=== PATIENT | male | born 1950 | race Caucasian/White ===

== ENCOUNTER → 2017-05-04 10:06 | Outpatient (CLI) | payer MEDICARE, SELFPAY ==
[2017-05-04 12:30] LABS: Anion Gap 6 (5-15); BUN 30 mg/dL (7-18); BUN/Creat Ratio 23.1 RATIO (10-20); Calcium,Total 8.8 mg/dL (8.5-10.1); Chloride 110 mmol/L (98-107); EST Glomerular Filtration Rate 58 mL/min (>60); Est Glom Filt Rate - Afr Amer 70 mL/min (>60); Glucose 99 mg/dL (74-106); Potassium 5.3 mmol/L (3.5-5.1); Sodium Level 139 mmol/L (136-145)
== END ==
PROVIDERS: Family Provider Family Medicine; PCP Family Medicine; Visit Provider Family Medicine
DX: N17.9 Acute kidney failure, unspecified (principal)
CPT/HCPCS: 36415; 80048

== ENCOUNTER → 2017-10-19 09:05 | Outpatient (CLI) | payer MEDICARE, SELFPAY ==
[2017-10-19 10:38] LABS: ALB/GLOB Ratio 1.3 RATIO (0.9-2.4); AST(SGOT) 19 U/L (15-37); Alanine Aminotransfer ALT/SGPT 31 U/L (16-61); Albumin, Serum 3.9 g/dL (3.2-5.0); Alkaline Phosphatase 62 U/L (45-117); Anion Gap 8 (5-15); BUN 30 mg/dL (7-18); BUN/Creat Ratio 22.2 RATIO (10-20); Calcium,Total 8.7 mg/dL (8.5-10.1); Chloride 108 mmol/L (98-107); Creatinine, Serum 1.35 mg/dL (0.70-1.30); EST Glomerular Filtration Rate 56 mL/min (>60); Est Glom Filt Rate - Afr Amer 67 mL/min (>60); Glucose 103 mg/dL (74-106); PSA,Total- Diagnostic 1.69 ng/mL (0.0-4.0); Potassium 4.1 mmol/L (3.5-5.1); Protein, Total 6.9 g/dL (6.4-8.2); Sodium Level 141 mmol/L (136-145)
== END ==
PROVIDERS: Family Provider Family Medicine; PCP Family Medicine; Visit Provider Family Medicine
DX: N40.0 Benign prostatic hyperplasia without lower urinary tract symptoms (principal); E78.5 Hyperlipidemia, unspecified
CPT/HCPCS: 36415; 80053; 84153

== ENCOUNTER → 2018-04-20 08:20 | Outpatient (CLI) | payer MEDICARE, SELFPAY ==
[2018-04-20 10:21] LABS: Anion Gap 10 (5-15); BUN 35 mg/dL (7-18); BUN/Creat Ratio 25.9 RATIO (10-20); Calcium,Total 8.6 mg/dL (8.5-10.1); Chloride 108 mmol/L (98-107); Creatinine, Serum 1.35 mg/dL (0.70-1.30); EST Glomerular Filtration Rate 56 mL/min (>60); Est Glom Filt Rate - Afr Amer 67 mL/min (>60); Glucose 114 mg/dL (74-106); Potassium 4.6 mmol/L (3.5-5.1); Sodium Level 142 mmol/L (136-145)
== END ==
PROVIDERS: Family Provider Family Medicine; PCP Family Medicine; Referring Provider Family Medicine; Visit Provider Family Medicine
DX: I10 Essential (primary) hypertension (principal)
CPT/HCPCS: 36415; 80048

== ENCOUNTER → 2018-11-29 09:06 | Outpatient (CLI) | payer MEDICARE, SELFPAY ==
--- NOTE | 2018-11-29 09:11 | RAD_ITS ---
STUDY: X-RAY - LUMBAR SPINE REASON FOR EXAM: Male, 68 years old. Bilateral leg weakness TECHNIQUE: 5 view(s) of the lumbar spine were obtained. COMPARISON: None FINDINGS: Normal alignment. Diffuse spondylosis. Degenerative disc disease at the L3-4 and L4-5 levels. Diffuse facet disease. No compression deformity. Vascular calcifications. No severe foraminal stenoses are detected. RAD/L/S Spine Min 4 Views IMPRESSION: Multilevel degenerative disease as described. Electronically Signed: Justice Rodríguez MD at 17:15 EDT Tel , Service support ,
[2018-11-29 09:58] LABS: Hematocrit 41.5 % (40-54); Hemoglobin 13.1 g/dL (13.0-16.5); Mean Corp Hgb Conc 31.6 g/dL (32-36); Mean Corpuscular Hgb 27.8 pg (27.0-32.0); Mean Corpuscular Volume 87.9 fL (80-94); Mean Platelet Vol. 10.1 fl (6.2-12.0); Platelet Count 200 K/mm3 (150-450); RBC Distribution Width CV 13.6 % (11.6-14.6); RBC Distribution Width SD 43.9 fl (35.1-43.9); Red Blood Count 4.72 M/mm3 (4.6-6.2); White Blood Count 6.8 K/mm3 (4.4-11.0)
[2018-11-29 10:31] LABS: Vitamin D,25 Hydroxy 48.3 ng/mL (29.95-100.01)
[2018-11-29 10:38] LABS: BNP,B-Type NATRIURETIC PEPTIDE 20.7 pg/mL (0-100)
[2018-11-29 10:43] LABS: ALB/GLOB Ratio 1.1 RATIO (0.9-2.4); AST(SGOT) 18 U/L (15-37); Alanine Aminotransfer ALT/SGPT 31 U/L (16-61); Albumin, Serum 3.9 g/dL (3.2-5.0); Alkaline Phosphatase 76 U/L (45-117); Anion Gap 5 (5-15); BUN 40 mg/dL (7-18); BUN/Creat Ratio 26.3 RATIO (10-20); Calcium,Total 8.9 mg/dL (8.5-10.1); Chloride 110 mmol/L (98-107); Creatinine, Serum 1.52 mg/dL (0.70-1.30); EST Glomerular Filtration Rate 48 mL/min (>60); Est Glom Filt Rate - Afr Amer 59 mL/min (>60); Globulin 3.7 g/dL (2.2-4.2); Glucose 78 mg/dL (74-106); Potassium 4.2 mmol/L (3.5-5.1); Protein, Total 7.6 g/dL (6.4-8.2); Sodium Level 141 mmol/L (136-145); Thyroid Stim Hormone (TSH) 3.39 uIU/mL (0.358-3.74)
== END ==
PROVIDERS: Family Provider Family Medicine; PCP Family Medicine; Referring Provider Family Medicine; Visit Provider Family Medicine
DX: R29.898 Other symptoms and signs involving the musculoskeletal system (principal); R06.00 Dyspnea, unspecified; E55.9 Vitamin D deficiency, unspecified
CPT/HCPCS: 36415; 72110; 80053; 82306; 83880; 84443; 85027

== ENCOUNTER → 2018-12-10 12:46 | Outpatient (CLI) | payer MEDICARE, SELFPAY ==
--- NOTE | 2018-12-10 12:48 | ECHOD_ITS ---
Reason For Study: DYSPNEA Procedure This was a 2D Doppler, Color Flow transthoracic echocardiogram. Exam performed in department. Left Ventricle Normal size and thickness. The estimated ejection fraction is 65 %. Stage 1 diastolic dysfunction. Septal motion consistent with IVCD. No regional wall motion abnormalities noted. Right Ventricle Normal size and thickness. Normal systolic function. Atria The left atrium is mildly enlarged. Normal right atrium. Normal atrial septum. Mitral Valve The mitral valve is structurally normal. No prolapse or stenosis seen. Trivial mitral valve insufficiency. Tricuspid Valve Normal tricuspid valve. Trivial tricuspid valve insufficiency. Right ventricular systolic pressure estimated to be 31 mmHg. Aortic Valve Normal aortic valve. Trisinus/trileaflet aortic valve. Pulmonic Valve Normal pulmonic valve. Great Vessels Calcified aortic root. Normal arch. Normal inferior vena cava. Inferior vena cava collapse with sniff. Pericardium/Pleural No pericardial effusion. MMode/2D Measurements & Calculations LVIDd: 4.9 cm IVSd: 0.95 cm Ao root diam: 3.5 cm LVIDs: 3.5 cm LVPWd: 1.1 cm RVDd: 3.3 cm FS: 29.4 % LAV(MOD-bp): 67.1 ml LA A4 area: 21.8 cm2 LA dimension(2D): 4.0 cm LAV(MOD-bp) Indexed: 29.0 ml/m2 LAV(MOD-sp2): 64.3 ml LAV(MOD-sp4): 68.7 ml RA A4 area: 17.5 cm2 Time Measurements MV dec time: 0.23 sec Doppler Measurements & Calculations MV E max pollo: 75.2 cm/sec Lat Peak E' Pollo: 7.8 cm/sec Med Peak E' Pollo: 7.1 cm/sec MV A max pollo: 80.7 cm/sec E/E' lat: 9.6 E/E' med: 10.5 MV E/A: 0.93 Ao V2 max: 122.0 cm/sec LV V1 max: 115.1 cm/sec PA V2 max: 77.5 cm/sec Ao max P.0 mmHg LV V1 max P.3 mmHg TR max pollo: 257.0 cm/sec TR max P.4 mmHg Interpretation Summary The estimated ejection fraction is 65 %. Stage 1 diastolic dysfunction. The left atrium is mildly enlarged. Trivial mitral valve insufficiency. Trivial tricuspid valve insufficiency. Right ventricular systolic pressure estimated to be 31 mmHg. There is no comparison study available. Ordering Physician: Luigi Kirk Referring Physician: Luigi Kirk Performed By: Tarah Muniz RDCS, RVT
== END ==
PROVIDERS: Family Provider Family Medicine; PCP Family Medicine; Referring Provider Family Medicine; Visit Provider Family Medicine
DX: R06.00 Dyspnea, unspecified (principal)
CPT/HCPCS: 93306

== ENCOUNTER → 2019-01-02 06:24 | Outpatient (CLI) | payer MEDICARE, SELFPAY ==
--- NOTE | 2019-01-02 08:59 | STRESSREP_ITS ---
Stress Test Report Exercise myocardial perfusion stress test. 68-year-old man with a history of chest pain. Stress protocol: Resting EKG demonstrates normal sinus rhythm with rate of 60 bpm normal intervals are noted resting blood pressures 130/88 mmHg. The patient exercised according to regular Km protocol for total duration of 5 minutes and 15 secon ds. At rest there were no ST or T wave changes noted suggest ischemia. The maximum heart rate was 126 bpm which was 84% of maximum predicted heart rate the maximum workload was 7 metabolic equivalents. At rest there were no ST or T wave changes noted suggest ischemia peak exercise upsloping ST changes were noted with no meet the criteria for ischemia. No clinical angina was noted. Patient got short of breath. The resting blood pressure was 130/80 mmHg with a peak blood pressure 160/80 mmHg. Rate pressure product was 11,800. Myocardial perfusion protocol. 15.0 mCi of technetium 99m sestamibi was injected at rest. Patient exercised according to regular Km protocol for 5-1/4 minutes at peak exercise 45.0 mCi of technetium 99m sestamibi was injected stress images were obtained stress and rest images were reconstructed and compared in the short axis vertical and horizontal long axis. Gated images were also obtained per Perfusion SPECT analysis: Review of the stress images demonstrate normal uptake of tracer noted in all areas of the myocardium the resting images similar demonstrate normal uptake of tracer noted in all areas of myocardium. No areas of reversibility are noted suggest ischemia no previous infarct is noted. Gated SPECT analysis: The gated ejection fraction is noted to be 78%. Conclusion: Normal exercise myocardial perfusion stress test at a moderate workload. Preserved ejection fraction.
== END ==
PROVIDERS: Family Provider Family Medicine; PCP Family Medicine; Referring Provider Family Medicine; Visit Provider Family Medicine
DX: R06.00 Dyspnea, unspecified (principal)
CPT/HCPCS: 78452; 93017; A9500; A4216

== ENCOUNTER → 2019-03-07 09:14 | Outpatient (CLI) | payer MEDICARE, SELFPAY ==
--- NOTE | 2019-03-07 09:17 | RAD_ITS ---
STUDY: X-RAY CHEST REASON FOR EXAM: Male, 69 years old. Benign hypertension -- sob x 4 months TECHNIQUE: Frontal and lateral views of the chest were performed COMPARISON: 10 February 2016 FINDINGS: Inspiratory volumes are low. Lungs are clear. There is no demonstrated pleural abnormality. Normal size heart. Normal mediastinum and hien. Normal visualized pulmonary arteries. Normal visualized aortic arch and descending thoracic aorta. Normal visualized thoracic spine. Normal visualized ribs, clavicles, and shoulders. There is no demonstrated abnormality of the visualized soft tissue structures of the upper abdomen. RAD/Chest PA and Lateral IMPRESSION: Normal x-ray examination of the chest. Electronically Signed: Vito Lee, at 18:13 EST Tel , Service support ,
== END ==
PROVIDERS: Family Provider Family Medicine; PCP Family Medicine; Referring Provider Family Medicine; Visit Provider Family Medicine
DX: I10 Essential (primary) hypertension (principal); R10.13 Epigastric pain
CPT/HCPCS: 71046

== ENCOUNTER → 2019-03-13 08:58 | Outpatient (CLI) | payer MEDICARE, SELFPAY ==
--- NOTE | 2019-03-13 09:11 | RAD_ITS ---
STUDY: X-RAY - ESOPHAGUS (BARIUM SWALLOW) WITH FLUOROSCOPY REASON FOR EXAM: Male, 69 years old. Difficulty swallowing pills and dry foods; dry throat; problems for a couple years, but worsening recently TECHNIQUE: 23 view(s) of the esophagus were obtained following swallowing of barium. FLUOROSCOPY TIME (if supplied): (0:40) minutes/seconds COMPARISON: None. FINDINGS: There is no demonstrated esophageal foreign body. There is decreased peristaltic activity of the esophagus. There is narrowing of the distal esophagus at the gastroesophageal junction. This may represent early achalasia. Follow-up is recommended. The patient ingested a 12 mm tablet of barium without any difficulty. Normal visualized aortic arch and descending thoracic aorta. Normal visualized pulmonary parenchyma. Normal visualized osseous structures of the thorax. RAD/Esophagus Only IMPRESSION: Findings suggestive of early achalasia of the esophagus. Clinical correlation is recommended. Electronically Signed: Prashanth Kimbrough, at 15:01 EST , Service support ,
== END ==
PROVIDERS: Family Provider Family Medicine; PCP Family Medicine; Referring Provider Family Medicine; Visit Provider Family Medicine
DX: R10.13 Epigastric pain (principal)
CPT/HCPCS: 74220

== ENCOUNTER → 2019-09-06 09:05 | Outpatient (CLI) | payer MEDICARE, SELFPAY ==
[2019-09-06 10:26] LABS: AST(SGOT) 22 U/L (15-37); Alanine Aminotransfer ALT/SGPT 33 U/L (16-61); Albumin, Serum 3.6 g/dL (3.2-5.0); Alkaline Phosphatase 67 U/L (45-117); Anion Gap 4 (5-15); BUN 39 mg/dL (7-18); BUN/Creat Ratio 25.5 RATIO (10-20); Calcium,Total 8.8 mg/dL (8.5-10.1); Chloride 107 mmol/L (98-107); Cholesterol 149 mg/dL (200); Creatinine, Serum 1.53 mg/dL (0.70-1.30); EST Glomerular Filtration Rate 48 mL/min (>60); Est Glom Filt Rate - Afr Amer 58 mL/min (>60); Globulin 3.7 g/dL (2.2-4.2); Glucose 111 mg/dL (74-106); High Density Lipoprotein 35 mg/dL; PSA,Total - Annual Screen 0.87 ng/mL (0.00-4.00); Potassium 4.8 mmol/L (3.5-5.1); Protein, Total 7.3 g/dL (6.4-8.2); Sodium Level 141 mmol/L (136-145); Triglycerides 132 mg/dL; Very Low Density Lipoprotein 26 mg/dL (5-40)
== END ==
PROVIDERS: PCP Family Medicine; Referring Provider Family Medicine; Visit Provider Family Medicine
DX: E78.5 Hyperlipidemia, unspecified (principal); N40.0 Benign prostatic hyperplasia without lower urinary tract symptoms; Z12.5 Encounter for screening for malignant neoplasm of prostate
CPT/HCPCS: 36415; 80053; 80061; 84153; G0103

== ENCOUNTER → 2019-12-24 09:08 | Outpatient (CLI) | payer MEDICARE, SELFPAY ==
--- NOTE | 2019-12-24 15:19 | PFTCOMP_ITS ---
COMPLETE PULMONARY FUNCTION TEST INTERPRETATION Brief HPI: Patient is a 69 year old male, currently under the care of Dr. Kirk, who presents to [facility] for complete pulmonary function tests secondary to diagnosis of dyspnea. Respiratory therapist reports good effort and reproducible results. Interpretation: Forced expiration spirometry shows no large airways obstructive ventilatory defect with an FEV1 of 80% predicted. There is no significant bronchodilator response by strict ATS criteria. Spirograms are of good quality and plateau slowly, indicating slowly emptying areas of the lungs. The respiratory flow volume loop shows decreased expiratory flow rates at high lung volumes consistent with small airways obstruction. Lung volumes by body plethysmography show a normal total lung capacity at 5.88 L, 87% predicted. All other lung volumes are within normal limits. Diffusion capacity by carbon monoxide is normal at 83% predicted. The airway resistance is normal. No previous pulmonary function tests were available for review. Impression: Grossly normal pulmonary function test, but barely misses criteria for asthma.
== END ==
PROVIDERS: PCP Family Medicine; Referring Provider Family Medicine; Visit Provider Family Medicine
DX: R06.00 Dyspnea, unspecified (principal)
CPT/HCPCS: 94060; 94726; 94729

== ENCOUNTER → 2020-06-01 09:08 | Outpatient (CLI) | payer MEDICARE, SELFPAY ==
[2020-06-01 10:10] LABS: Anion Gap 4 (5-15); BUN 23 mg/dL (7-18); BUN/Creat Ratio 15.1 RATIO (10-20); Calcium,Total 8.8 mg/dL (8.5-10.1); Chloride 105 mmol/L (98-107); Cholesterol 142 mg/dL (200); Creatinine, Serum 1.52 mg/dL (0.70-1.30); EST Glomerular Filtration Rate 48 mL/min (>60); Est Glom Filt Rate - Afr Amer 58 mL/min (>60); Glucose 104 mg/dL (74-106); High Density Lipoprotein 40 mg/dL; Potassium 4.4 mmol/L (3.5-5.1); Sodium Level 139 mmol/L (136-145); Triglycerides 100 mg/dL; Very Low Density Lipoprotein 20 mg/dL (5-40)
== END ==
PROVIDERS: PCP Family Medicine; Visit Provider Family Medicine
DX: E78.5 Hyperlipidemia, unspecified (principal); N18.30 Chronic kidney disease, stage 3 unspecified
CPT/HCPCS: 36415; 80048; 80061

== ENCOUNTER → 2020-10-05 15:25 | Outpatient (CLI) | payer MEDICARE, SELFPAY ==
--- NOTE | 2020-10-05 15:30 | RAD_ITS ---
STUDY: X-RAY - LUMBOSACRAL SPINE REASON FOR EXAM: Male, 70 years old. Low back pain. TECHNIQUE: 7 view(s) of the lumbosacral spine including lateral flexion and extension views were obtained. COMPARISON: 11/29/2018. FINDINGS: Osteopenia. Normal lumbar lordosis. There is no substantial scoliosis. There is normal alignment of the vertebrae. Limited flexion and extension with no abnormal motion. Normal vertebral bodies and endplates. Diffuse moderate to marked facet sclerosis. Diffuse intervertebral disc space narrowing with osteophyte formation most marked at L3-4. Normal bilateral sacral ala, sacroiliac joints, and visualized sacrum. Vascular calcification. Phleboliths. RAD/L/S Spine w Bend Min 6 Vw IMPRESSION: Limited flexion and extension with no abnormal motion. Stable marked lumbosacral spondylosis as described, most prevalent at L3-4. No acute abnormality. Electronically Signed: Gilbert Oropeza MD at 9:44 EDT , Service support ,
== END ==
PROVIDERS: PCP Family Medicine; Referring Provider Family Medicine; Visit Provider Family Medicine
DX: M54.5 Low back pain (principal)
CPT/HCPCS: 72114

== ENCOUNTER → 2020-12-17 10:00 | Outpatient (CLI) | payer MEDICARE, SELFPAY ==
[2020-12-17 12:36] LABS: Vitamin D,25 Hydroxy 44.3 ng/mL
[2020-12-17 12:40] LABS: Anion Gap 5 (5-15); BUN 34 mg/dL (7-18); Calcium,Total 9.2 mg/dL (8.5-10.1); Chloride 106 mmol/L (98-107); EST Glomerular Filtration Rate 42 mL/min (>60); Est Glom Filt Rate - Afr Amer 51 mL/min (>60); Glucose 90 mg/dL (74-106); PSA,Total - Annual Screen 1.32 ng/mL (0.00-4.00); Potassium 4.3 mmol/L (3.5-5.1); Sodium Level 139 mmol/L (136-145)
== END ==
PROVIDERS: PCP Family Medicine; Referring Provider Family Medicine; Visit Provider Family Medicine
DX: N18.30 Chronic kidney disease, stage 3 unspecified (principal); N40.0 Benign prostatic hyperplasia without lower urinary tract symptoms; E55.9 Vitamin D deficiency, unspecified; Z12.5 Encounter for screening for malignant neoplasm of prostate
CPT/HCPCS: 36415; 80048; 82306; 84153; G0103

== ENCOUNTER → 2021-01-15 08:10 | Outpatient (CLI) | payer MEDICARE, SELFPAY ==
--- NOTE | 2021-01-16 06:57 | PFT ---
INTRODUCTION: The patient is a 70-year-old male that presents for pulmonary function studies secondary to a diagnosis of shortness of breath. Respiratory therapy reported good patient effort. Bronchodilators were used during testing. INTERPRETATION: Forced expiration spirometry demonstrates no evidence of a large airways obstructive ventilatory defect. There was a significant response to aerosolized bronchodilators. Spirograms are of good quality and plateau normally. Body plethysmography was performed and revealed lung volumes to be within normal limits. Diffusing capacity by single breath CO was also within normal limits. When compared to pulmonary function studies completed in November 2019, there has been a 27% reduction in FEV1. IMPRESSION: Stigmata of small airways disease with significant bronchodilator response noted.
== END ==
PROVIDERS: PCP Family Medicine; Referring Provider Internal Medicine Critical Care Medicine; Visit Provider Internal Medicine Critical Care Medicine
DX: R06.02 Shortness of breath (principal)
CPT/HCPCS: 94060; 94726; 94729

== ENCOUNTER → 2021-01-20 09:18 | Outpatient (CLI) | payer MEDICARE, SELFPAY ==
[2021-01-20 10:52] LABS: Anion Gap 10 (5-15); BUN 25 mg/dL (7-18); BUN/Creat Ratio 17.5 RATIO (10-20); Calcium,Total 9.1 mg/dL (8.5-10.1); Chloride 106 mmol/L (98-107); Creatinine, Serum 1.43 mg/dL (0.70-1.30); EST Glomerular Filtration Rate 52 mL/min (>60); Est Glom Filt Rate - Afr Amer 62 mL/min (>60); Glucose 127 mg/dL (74-106); Potassium 4.3 mmol/L (3.5-5.1); Sodium Level 140 mmol/L (136-145)
== END ==
PROVIDERS: PCP Family Medicine; Referring Provider Family Medicine; Visit Provider Family Medicine
DX: I10 Essential (primary) hypertension (principal)
CPT/HCPCS: 36415; 80048

== ENCOUNTER → 2021-01-22 12:58 | Outpatient (CLI) | payer MEDICARE, SELFPAY ==
[2021-01-22 14:33] VITALS: PULSE 66; PULSE 69; PULSE 74; PULSE 83; PULSE 87; PULSE 89; O2SAT 95; O2SAT 97; O2SAT 98
--- NOTE | 2021-01-23 05:37 | PCM.PSN.6M ---
PSN 6 Minute Walk Test 6 Minute Walk Test 6 Minute Walk Test: 6 Minute Walk Test PSN:6-Minute Walk Test Start: 01/22/21 14:33 Freq: Status: Active Protocol: [id number] Document 01/22/21 14:33 [facility] (Rec: 01/22/21 14:37 [facility] [id number]) 6 Minute Walk Test Date Performed 01/22/21 Time Performed 13:00 Height 5 ft 11 in Weight: 108.273 kg Weight in Pounds 238.[address]: Iggy Goncalves Assistive device used: None Pre-test Oxygen Delivery Method Room Air Pulse Ox (%) 98 Pulse Rate (60-100 beats/min) 66 Dyspnea Rianna Scale (0-10) 0 1st minute Oxygen Delivery Method Room Air Pulse Ox (%) 95 Pulse Rate (60-100 beats/min) 74 Dyspnea Rianna Scale (0-10) 1 Number of Rests Taken 0 2nd minute Oxygen Delivery Method Room Air Pulse Ox (%) 95 Pulse Rate (60-100 beats/min) 83 Dyspnea Rianna Scale (0-10) 2 Number of Rests Taken 0 Reported Symptoms Increased Work of Breathing 3rd minute Oxygen Delivery Method Room Air Pulse Ox (%) 95 Pulse Rate (60-100 beats/min) 87 Dyspnea Rianna Scale (0-10) 3 Number of Rests Taken 0 Reported Symptoms Increased Work of Breathing 4th minute Oxygen Delivery Method Room Air Pulse Ox (%) 95 Pulse Rate (60-100 beats/min) 89 Dyspnea Rianna Scale (0-10) 3 Number of Rests Taken 0 Reported Symptoms Increased Work of Breathing 5th minute Oxygen Delivery Method Room Air Pulse Ox (%) 95 Pulse Rate (60-100 beats/min) 87 Dyspnea Rianna Scale (0-10) 3 Number of Rests Taken 0 Reported Symptoms Increased Work of Breathing 6th minute Oxygen Delivery Method Room Air Pulse Ox (%) 95 Pulse Rate (60-100 beats/min) 89 Dyspnea Rianna Scale (0-10) 3 Number of Rests Taken 0 Reported Symptoms Increased Work of Breathing Post-test Oxygen Delivery Method Room Air Pulse Ox (%) 97 Pulse Rate (60-100 beats/min) 69 Dyspnea Rianna Scale (0-10) 0 Full Laps Walked 12 Partial Lap, Number of Tiles Walked 13 Total Distance Walked (ft) 721 Interpretation Interpretation: The patient was able to ambulate only 721 feet over the course of 6 minutes on room air with no assistive devices or breaks. The patient experienced no significant desaturation or tachycardia during testing. These findings are consistent with a musculoskeletal limitation exercise tolerance. Recommendations Recommendations: No supplemental oxygen is indicated at this time. Repeat testing may be indicated if patient's mobility improves.
== END ==
PROVIDERS: PCP Family Medicine; Referring Provider Internal Medicine Critical Care Medicine; Visit Provider Internal Medicine Critical Care Medicine
DX: R06.02 Shortness of breath (principal)
CPT/HCPCS: 94618

== ENCOUNTER → 2021-06-23 | Outpatient (CLI) | payer MEDICARE, SELFPAY ==
[2021-06-23 12:32] LABS: Hemoglobin A1c 5.4 % (3.8-5.6); Vitamin D,25 Hydroxy 59.8 ng/mL
[2021-06-23 12:33] LABS: Erythrocyte Sedimentation Rate 10 mm/hr (0-20)
[2021-06-23 12:37] LABS: Absolute Neutrophil Count 4.8 X10^3/uL (2.0-7.7); Basophil# 0.04 X10^3/uL; Basophil% 0.6 % (0-1); Eosinophil# 0.17 X10^3/uL; Eosinophils% 2.5 % (0-5); Hematocrit 40.7 % (40-54); Hemoglobin 13.2 g/dL (13.0-16.5); Lymphocyte % 21.7 % (19-41); Mean Corp Hgb Conc 32.4 g/dL (32-36); Mean Corpuscular Hgb 27.8 pg (27.0-32.0); Mean Corpuscular Volume 85.9 fL (80-94); Mean Platelet Vol. 9.8 fl (6.2-12.0); Monocyte# 0.39 X10^3/uL; Monocyte% 5.6 % (0-10); NRBC Flagged by Analyzer 0 % (0-5); Neutrophil # 4.76 X10^3/uL (2.7-7.7); Neutrophil % 68.9 % (47-70); Platelet Count 269 K/mm3 (150-450); RBC Distribution Width CV 13.2 % (11.6-14.6); RBC Distribution Width SD 41.7 fl (35.1-43.9); Red Blood Count 4.74 M/mm3 (4.6-6.2); White Blood Count 6.9 K/mm3 (4.4-11.0)
[2021-06-23 12:59] LABS: Anion Gap 7 (5-15); BUN 21 mg/dL (7-18); CRP 3.66 mg/L (0.0-3.0); Chloride 108 mmol/L (98-107); Cholesterol 101 mg/dL (200); Creatinine, Serum 1.61 mg/dL (0.70-1.30); EST Glomerular Filtration Rate 45 mL/min (>60); Est Glom Filt Rate - Afr Amer 54 mL/min (>60); Glucose 120 mg/dL (74-106); High Density Lipoprotein 39 mg/dL; Potassium 4.4 mmol/L (3.5-5.1); Rheumatoid Factor < 10.0 IU/mL (<15); Sodium Level 139 mmol/L (136-145); Thyroid Stim Hormone (TSH) 3.47 uIU/mL (0.358-3.74); Triglycerides 73 mg/dL; Uric Acid 4.3 mg/dL (3.5-7.2); Very Low Density Lipoprotein 15 mg/dL (5-40)
[2021-06-24 17:30] LABS: ANTINUCLEAR ANTIBODIES DIRECT Negative (Negative)
== END | disposition home or self-care (01) ==
LOC: MFPLAB 09:38
PROVIDERS: PCP Family Medicine; Referring Provider Family Medicine; Visit Provider Family Medicine
DX: Z00.00 Encounter for general adult medical examination without abnormal findings (principal); N18.30 Chronic kidney disease, stage 3 unspecified; N40.0 Benign prostatic hyperplasia without lower urinary tract symptoms; I12.9 Hypertensive chronic kidney disease with stage 1 through stage 4 chronic kidney disease, or unspecified chronic kidney disease; R73.01 Impaired fasting glucose
CPT/HCPCS: 80048; 80061; 82306; 83036; 84153; 84443; 84550; 85025; 85652; 86038; 86140; 86431

== ENCOUNTER → 2021-09-14 | Outpatient (CLI) | payer MEDICARE, SELFPAY ==
[2021-09-14 12:15] LABS: Absolute Lymphocyte Count 1.39 X10^3/uL (0.83-4.51); Absolute Neutrophil Count 4.8 X10^3/uL (2.0-7.7); Basophil# 0.03 X10^3/uL; Basophil% 0.4 % (0-1); Eosinophil# 0.15 X10^3/uL; Eosinophils% 2.2 % (0-5); Hematocrit 40.3 % (40-54); Hemoglobin 13.2 g/dL (13.0-16.5); Lymphocyte # 1.39 X10^3/ul (0.83-4.51); Lymphocyte % 20.5 % (19-41); Mean Corp Hgb Conc 32.8 g/dL (32-36); Mean Corpuscular Hgb 28.3 pg (27.0-32.0); Mean Corpuscular Volume 86.3 fL (80-94); Mean Platelet Vol. 9.6 fl (6.2-12.0); Monocyte# 0.41 X10^3/uL; NRBC Flagged by Analyzer 0 % (0-5); Neutrophil # 4.76 X10^3/uL (2.7-7.7); Neutrophil % 70.2 % (47-70); Platelet Count 204 K/mm3 (150-450); RBC Distribution Width CV 13.9 % (11.6-14.6); RBC Distribution Width SD 43.9 fl (35.1-43.9); Red Blood Count 4.67 M/mm3 (4.6-6.2); White Blood Count 6.8 K/mm3 (4.4-11.0)
[2021-09-14 12:36] LABS: Vitamin B12 299 pg/mL (211-911); Vitamin D,25 Hydroxy 62.6 ng/mL
[2021-09-14 12:55] LABS: Anion Gap 5 (5-15); BUN 29 mg/dL (7-18); BUN/Creat Ratio 19.6 RATIO (10-20); Calcium,Total 9.1 mg/dL (8.5-10.1); Chloride 107 mmol/L (98-107); Creatinine, Serum 1.48 mg/dL (0.70-1.30); EST Glomerular Filtration Rate 49 mL/min (>60); Est Glom Filt Rate - Afr Amer 60 mL/min (>60); Glucose 99 mg/dL (74-106); Potassium 4.4 mmol/L (3.5-5.1); Sodium Level 139 mmol/L (136-145); Thyroid Stim Hormone (TSH) 3.42 uIU/mL (0.358-3.74)
== END | disposition home or self-care (01) ==
LOC: MFPLAB 10:22
PROVIDERS: PCP Family Medicine; Visit Provider Family Medicine
DX: R53.83 Other fatigue (principal); N18.30 Chronic kidney disease, stage 3 unspecified
CPT/HCPCS: 36415; 80048; 82306; 82607; 84443; 85025

== ENCOUNTER → 2021-10-06 | Outpatient (CLI) | payer MEDICARE, SELFPAY ==
--- NOTE | 2021-10-06 08:11 | MRI_ITS ---
EXAM: MR HEAD WITHOUT INTRAVENOUS CONTRAST CLINICAL INDICATION: GAIT INSTABILITY, PARKINSON''S TECHNIQUE: Multiplanar and multisequence MR images of the brain were obtained without intravenous contrast. This report was created using [employer] report generation technology. COMPARISON: None. FINDINGS: BRAIN AND EXTRA-AXIAL SPACES: Unremarkable. No intra- or extra-axial hemorrhage. No evidence of acute infarct. No intracranial mass or mass effect. There is preservation of the guerra/white matter interface. Posterior fossa structures are unremarkable. Ventricles are appropriate for age. No hydrocephalus. Basal cisterns are patent. SELLA: Unremarkable. Normal sella turcica, pituitary gland, infundibular stalk, optic chiasm and hypothalamus. AUDITORY SYSTEM: Unremarkable. The internal auditory canals are patent. BONES/JOINTS: Unremarkable. No discrete lytic or blastic abnormalities. SINUSES: Unremarkable as visualized. Clear. MASTOID AIR CELLS: Unremarkable as visualized. Clear. ORBITS: Unremarkable as visualized. Both globes, extraocular muscles, optic nerves and retrobulbar fat appear unremarkable. VASCULATURE: Unremarkable as visualized. Normal flow voids in the major intracranial circulation. MRI/Brain without Contrast IMPRESSION: Negative MRI brain without intravenous contrast. Electronically Signed: Abdoul Alvarez MD at 15:08 EDT ,
== END | disposition home or self-care (01) ==
PROVIDERS: PCP Family Medicine; Visit Provider Family Medicine
DX: R26.81 Unsteadiness on feet (principal)
CPT/HCPCS: 70551

== ENCOUNTER 2021-10-16 22:19 | Inpatient (IN) | payer MEDICARE, SELFPAY ==
[2021-10-16 22:19] VITALS: PULSE 98; RESP 18; TEMP 36.8; O2SAT 93; BMI 29.9
[2021-10-16 22:24] VITALS: BP 111/62; PULSE 97; RESP 14; O2SAT 93
--- NOTE | 2021-10-16 22:45 | EKG12_ITS ---
Test Reason : WEAKNESS Blood Pressure : / mmHG Vent. Rate : 090 BPM Atrial Rate : 090 BPM P-R Int : 152 ms QRS Dur : 108 ms QT Int : 380 ms P-R-T Axes : 029 -40 063 degrees QTc Int : 464 ms Normal sinus rhythm Left axis deviation Moderate voltage criteria for LVH, may be normal variant ( R in aVL , Donavon product ) Abnormal ECG Confirmed by WILIAM STERLING, ROSITA ([id number]), medical transcription editor ALIA BECKWITH ([id number]) on 10/19/2021 12:50:13 PM Referred By: Confirmed By:ROSITA SWAIN MD
--- NOTE | 2021-10-16 22:46 | EDS_ITS ---
HPI History of Present Illness Chief Complaint: Weakness Informant: patient, spouse/S.O. and EMS Narrative Narrative: Patient presents by EMS for generalized weakness. He was unable to get out of bed tonight to go to the bathroom according to the . He has felt weak for years but usually able to get around. His doctor thinks he has Parkinson's so he started him on carbidopa/levodopa 2 or 3 weeks ago, for the first couple of days he was fine and then overnight 1 night he was sick to his stomach and vomiting so he decided himself to discontinue the medication. It was around this time according to the both of them that they suspect they both had COVID because their son had it but did not know it until after he was at their house with them and then they both became ill but did not test themselves. He had cough, myalgias, some chills. He states most of that is gone and he has a minor lingering cough still. He discontinued the medication for about 2 weeks, and then restarted it 2 days ago and states he has been vomiting again, but only 3 times or so. They are concerned it is the medication. He states he has had some minor supraumbilical abdominal pains that go away when he gets up and walks around but no other abdominal pain. Constipated recently but no diarrhea, bright red blood per rectum, melena. He has been eating and drinking a lot less in the past week. He has chronic urinary urgency followed by not urinating as much as he would expect which is no different recently. [facility] Medical History (Updated 10/17/21 @ 02:[address] Hesham Nassar MD) Depression GERD (gastroesophageal reflux disease) Hyperlipidemia Hypertension Nonalcoholic steatohepatitis Normochromic normocytic anemia MARK (obstructive sleep apnea) Parkinson disease Home Medications bupropion HCl 150 mg 24 hr tablet, extended release 150 mg PO DAILY 02/26/16 [History Last Taken 02/25/16] cholecalciferol (vitamin D3) 25 mcg (1,000 unit) capsule (Vitamin D3) 2,000 unit PO DAILY 02/26/16 [History Last Taken 02/25/16] sertraline 100 mg tablet 100 mg PO BID 02/26/16 [History Last Taken 02/25/16] losartan 100 mg tablet 100 mg PO DAILY #30 TABLETS 01/01/17 [Rx Last Taken Unknown] amlodipine 5 mg tablet 5 mg PO DAILY 01/05/21 [History Last Taken Unknown] atorvastatin 10 mg tablet 10 mg PO DAILY 01/05/21 [History Last Taken Unknown] loratadine 10 mg capsule 10 mg PO DAILY 01/05/21 [History Last Taken Unknown] naproxen 500 mg tablet 500 mg PO BID 01/05/21 [History Last Taken Unknown] propranolol 40 mg tablet 40 mg PO BID 01/05/21 [History Last Taken Unknown] tamsulosin 0.4 mg capsule 0.4 mg PO DAILY 01/05/21 [History Last Taken Unknown] albuterol sulfate 90 mcg/actuation aerosol inhaler (Ventolin HFA) 2 puff inhalation Q4H PRN shortness of breath or wheezing #18 grams 02/18/21 [Rx Last Taken Unknown] spacer #1 ea 02/18/21 [Rx Last Taken Unknown] Allergy/AdvReac Type Severity Reaction Status Date / Time Penicillins Allergy Hives Verified 10/16/21 22:24 Surgical History H/O oral surgery Social History Smoking Status: Never smoker ROS ROS ED Constitutional Constitutional ED: Reports anorexia, fatigue and weakness; Denies chills, fever(s) or lethargy Eyes Eyes: Denies blurry vision, change in vision or diplopia ENT ENT ED: Denies ear pain, rhinorrhea or sore throat Cardiovascular Cardiovascular: Denies chest pain, orthopnea, palpitations or racing heartbeat Respiratory/Chest Respiratory/Chest: Reports cough; Denies dyspnea, dyspnea on exertion or orthopnea Gastrointestinal Gastrointestinal: Reports as per HPI, abdominal pain, constipation, nausea and vomiting; Denies diarrhea or melena Genitourinary Genitourinary ED: Reports as per HPI and urinary urgency; Denies dysuria or hematuria Musculoskeletal Musculoskeletal: Denies back pain or neck pain Integumentary Denies abscess or rash Neurologic Neurologic: Denies headache(s), paresthesias or weakness Psychiatric Psychiatric: Denies anxiety or suicidal thoughts EXAM Physical Exam Const Vital Signs: 10/16/21 22:19 10/16/21 22:24 10/16/21 22:31 Temperature 98.2 F Temperature Source Oral Pulse Rate 98 97 Respiratory Rate 18 14 Respiratory Pattern Normal Blood Pressure 111/62 Blood Pressure Mean 78 Pulse Ox 93 93 Oxygen Delivery Method Room Air Room Air 10/17/21 01:07 Temperature Temperature Source Pulse Rate Respiratory Rate Respiratory Pattern Blood Pressure 116/60 Blood Pressure Mean 78 Pulse Ox 95 Oxygen Delivery Method Room Air Positive well nourished and well developed General Appearance ED: well developed and NAD HEENT Reports moist mucous membranes normocephalic and atraumatic Eyes PERRL and EOMs intact bilaterally Neck full ROM and supple Resp normal respiratory effort and clear to auscultation bilaterally Cardio regular rate, regular rhythm and no murmurs GI non-tender and non-distended Auscultation: normoactive bowel sounds Palpation: soft Back/Spine no CVA tenderness General Back: other FROM Extremity normal to inspection General Extremety ED: Negative for edema, pulses abnormal or tenderness General Extremity: Negative for edema or pulses abnormal Neuro oriented x3, CN's II-XII intact bilaterally and no sensory deficits noted Neuro Narrative: Symmetrically weak throughout all 4 extremities, 4/5, able to resist gravity. Sensorium / Orientation: awake and alert Motor Exam: general weakness Psych mental status grossly normal Skin no rashes or lesions noted and no wounds MDM MDM MDM Narrative Medical decision making narrative: Labs show mild dehydration, low potassium, as well as elevated liver enzymes. It looks like his bilirubin was up before, but it is higher now at 3.9. He has bilirubin in his urine which does not otherwise appear to be grossly infected, he has a mild nonspecific leukocytosis. It is also notable that his albumin is very low and as well his calcium has resolved. I sent her for CT since ultrasound is not available at this hour to try to characterize his elevated liver enzymes, and it shows what appears to be a stone in the common bile duct causing an obstruction. I suspect this is the cause of his vomiting rather than the medication he has been taking. I did give him fluids and potassium here in the ER, discussed with hospitalist for admission and further management. Lab Data Attestation: I reviewed the patient's lab results. Labs: Laboratory Results - last 24 hr 10/16/21 10/16/21 10/16/21 00:44 22:34 22:34 WBC 13.0 H RBC 3.90 L Hgb 10.9 L Hct 34.2 L MCV 87.7 MCH 27.9 MCHC 31.9 L RDW Std Deviation 47.7 H RDW Coeff of Richie 15.0 H Plt Count 255 MPV 9.8 Immature Gran % (Auto) 0.500 Neut % (Auto) 91.4 H Lymph % (Auto) 2.8 L King % (Auto) 4.9 Eos % (Auto) 0.1 Baso % (Auto) 0.3 Absolute Neuts (auto) 11.9 H Absolute Lymphs (auto) 0.36 L Nucleated RBC % 0 Sodium 141 Potassium 3.1 L Chloride 116 H Carbon Dioxide 17.0 L Anion Gap 8 BUN 22 H Creatinine 1.11 Estim Creat Clear Calc 63.13 Est GFR (MDRD) Af Amer 83 Est GFR (MDRD) Non-Af 69 BUN/Creatinine Ratio 19.8 Glucose 103 Calcium 6.8 L Total Bilirubin 3.90 H AST 69 H ALT 28 Alkaline Phosphatase 378 H Troponin I High Sens 8 Total Protein 5.1 L Albumin 2.0 L Globulin 3.1 Albumin/Globulin Ratio 0.6 L Urine Color Mindi Urine Clarity Clear Urine pH 5.0 Ur Specific [place] 1.015 Urine Protein 30 H Urine Glucose (UA) Normal Urine Ketones 15 H Urine Occult Blood 10 H Urine Nitrite Negative Urine Bilirubin 6 H Urine Urobilinogen 12 H Ur Leukocyte Esterase 25 H Urine RBC 0-5 SEEN Urine WBC 5-10 SEEN Ur Squamous Epith Cells 0-5 SEEN Urine Bacteria 3+ Hyaline Casts 0-5 SEEN Urine Mucus 2+ Radiography Diagnostic Testing: Clinical Impression(s) from Imaging Studies Chest X-Ray 10/16/21 23:30 IMPRESSION: No acute abnormal cardiopulmonary finding. Electronically Signed: Masoud Man MD at 0:02 EDT , Abdomen/Pelvis CT 10/17/21 00:54 IMPRESSION: 9 mm obstructing lesion in the distal common bile duct, likely calculus, with diffuse intra and extrahepatic biliary dilation and distention of the gallbladder. Electronically Signed: Masoud Man MD at 2:26 EDT , Rhythm Strip Rhythm Strip: Sinus Rhythm Rate: 90 Ectopy: None EKG Initial EKG: Attestation: I personally reviewed and interpreted this EKG as follows: Interpretation: Sinus Rhythm, No Acute Injury Pattern and LAFB Prior: No Prior Discharge Plan Triage Chief Complaint: Weakness ED Provider: Hesham Nassar Dx/Rx/DC Orders Clinical Impression: Biliary calculus with obstruction without cholecystitis, Generalized weakness, Hypokalemia due to excessive gastrointestinal loss of potassium, Vomiting, Dehydration Prescriptions: No Action amlodipine 5 mg tablet 5 mg PO DAILY loratadine 10 mg capsule 10 mg PO DAILY propranolol 40 mg tablet 40 mg PO BID naproxen 500 mg tablet 500 mg PO BID tamsulosin 0.4 mg capsule 0.4 mg PO DAILY atorvastatin 10 mg tablet 10 mg PO DAILY albuterol sulfate [Ventolin HFA] 90 mcg/actuation HFA aerosol inhaler 2 puff inhalation Q4H PRN (Reason: shortness of breath or wheezing) Qty: 18 6RF (DME) spacer See Rx Instructions .ROUTE .MEDSUPPLY Qty: 1 0RF Rx Instructions: As directed sertraline 100 MG tablet 100 mg PO BID Label Comments: mental health bupropion HCl 150 MG tablet extended release 24 hr 150 mg PO DAILY Label Comments: depression cholecalciferol (vitamin D3) [Vitamin D3] 1,000 UNIT capsule 2,000 unit PO DAILY Label Comments: supplement losartan 100 MG tablet 100 mg PO DAILY Qty: 30 0RF Primary Care Provider: Luigi Kirk Referrals: Luigi Kirk MD [Primary Care Provider] - Disposition Disposition: Acute Care Hospital [facility]
[2021-10-16 23:02] LABS: Absolute Lymphocyte Count 0.36 X10^3/uL (0.83-4.51); Absolute Neutrophil Count 11.9 X10^3/uL (2.0-7.7); Basophil# 0.04 X10^3/uL; Basophil% 0.3 % (0-1); Eosinophil# 0.01 X10^3/uL; Eosinophils% 0.1 % (0-5); Hematocrit 34.2 % (40-54); Hemoglobin 10.9 g/dL (13.0-16.5); Lymphocyte # 0.36 X10^3/ul (0.83-4.51); Lymphocyte % 2.8 % (19-41); Mean Corp Hgb Conc 31.9 g/dL (32-36); Mean Corpuscular Hgb 27.9 pg (27.0-32.0); Mean Corpuscular Volume 87.7 fL (80-94); Mean Platelet Vol. 9.8 fl (6.2-12.0); Monocyte# 0.64 X10^3/uL; Monocyte% 4.9 % (0-10); NRBC Flagged by Analyzer 0 % (0-5); Neutrophil # 11.85 X10^3/uL (2.7-7.7); Neutrophil % 91.4 % (47-70); POSITIVE DIFFERENTIAL YES; Platelet Count 255 K/mm3 (150-450); RBC Distribution Width SD 47.7 fl (35.1-43.9)
[2021-10-16 23:23] LABS: ALB/GLOB Ratio 0.6 RATIO (0.9-2.4); AST(SGOT) 69 U/L (15-37); Alanine Aminotransfer ALT/SGPT 28 U/L (16-61); Alkaline Phosphatase 378 U/L (45-117); Anion Gap 8 (5-15); BUN 22 mg/dL (7-18); BUN/Creat Ratio 19.8 RATIO (10-20); Calcium,Total 6.8 mg/dL (8.5-10.1); Chloride 116 mmol/L (98-107); Creatinine, Serum 1.11 mg/dL (0.70-1.30); EST Glomerular Filtration Rate 69 mL/min (>60); Est Glom Filt Rate - Afr Amer 83 mL/min (>60); Estimated Creatinine Clearance 63.13 ml/min; Globulin 3.1 g/dL (2.2-4.2); Glucose 103 mg/dL (74-106); Potassium 3.1 mmol/L (3.5-5.1); Protein, Total 5.1 g/dL (6.4-8.2); Sodium Level 141 mmol/L (136-145); Troponin-I HS 8 pg/mL (3.0-78.0)
[2021-10-16] MEDS: 0.9% Normal Saline 1,000 ML 250 ML IV (23:23)
--- NOTE | 2021-10-16 23:30 | RAD_ITS ---
STUDY: X-RAY CHEST REASON FOR EXAM: Male, 71 years old. Weak, cough TECHNIQUE: AP and lateral views of the chest. COMPARISON: 03/07/2019 FINDINGS: The lungs are clear and expanded. There is no demonstrated pleural abnormality. Normal size heart. Normal mediastinum and hien. Normal visualized pulmonary arteries. Aortic arch calcification. There is no demonstrated abnormality of the visualized soft tissue structures of the upper abdomen. RAD/Chest PA and Lateral IMPRESSION: No acute abnormal cardiopulmonary finding. Electronically Signed: Masoud Man MD at 0:02 EDT ,
[2021-10-16 23:32] LABS: Differential Indicated SCAN CRITERIA MET
[2021-10-17] VITALS (10 sets, daily range): BP systolic 116–142; BP diastolic 60–83; PULSE 67–103; RESP 16–18; TEMP 36–36.8; O2SAT 95–98; BMI 30.4
[2021-10-17 00:51] LABS: Color, Urine Amber (Yellow); Glucose, Dipstick Normal (Normal); Ketone-Dipstick 15 mg/dl (Negative); Leukocyte Esterase-Dipstick 25 /ul (Negative); Nitrite-Dipstick Negative (Negative); Occult Blood-Urine 10 /ul (Negative); Protein-Dipstick 30 mg/dl (Negative); Specific Gravity, Urine 1.015 (1.002-1.030); Urine Bilirubin Dipstick 6 mg/dL (Negative); Urine Clarity Clear (Clear); Urine Urobilinogen 12 mg/dl (Normal)
--- NOTE | 2021-10-17 00:54 | CT_ITS ---
STUDY: CT ABDOMEN AND PELVIS WITH CONTRAST REASON FOR EXAM: Male, 71 years old. Abdominal pain, nausea and vomiting, elevated liver enzymes RADIATION DOSAGE (If Supplied By Facility): CTDIvol = ( 13.56 ) mGy, DLP = ( 1452.35 ) mGycm TECHNIQUE: Transaxial images were obtained from the dome of the diaphragm to the symphysis pubis without oral contrast. IV 100mL Isovue-370 was administered. Sagittal and coronal images were reconstructed. Individualized dose optimization techniques were used for this CT. COMPARISON: 02/26/2016 FINDINGS: Bilateral lung base scarring. The visualized portions of the heart are within normal limits. Diffuse intrahepatic biliary dilation. There is a 9 mm lesion at the distal common bile duct with proximal biliary dilation to 2.1 cm, and distention of the gallbladder. Several small calculi layering in the gallbladder. Moderate splenomegaly is similar to 02/26/2016 Normal pancreas. Normal bilateral adrenal glands. Normal right kidney. Normal left kidney. Normal visualized stomach. Normal small intestine. Normal colon. The appendix is visualized and appears normal. Normal abdominal aorta. Normal inferior vena cava. Normal retroperitoneum. Normal urinary bladder. Normal visualized prostate gland. Fat-containing umbilical and bilateral inguinal hernias. There are diffuse degenerative changes of the visualized lumbar spine. CT/Abdomen/Pelvis W IV Cont ONLY IMPRESSION: 9 mm obstructing lesion in the distal common bile duct, likely calculus, with diffuse intra and extrahepatic biliary dilation and distention of the gallbladder. Electronically Signed: Masoud Man MD at 2:26 EDT ,
[2021-10-17 01:13] LABS: Bacteria 3+ /hpf (None Seen); Hyaline Cast 0-5 SEEN /lpf (0-5); Mucous, Urine 2+ /hpf (<or=2+); Red Blood Cells-Urine 0-5 SEEN /hpf (0-5); Squamous Epithelial Cells - UA 0-5 SEEN /hpf (0-5); White Blood Cells 5-10 SEEN /hpf (0-5)
[2021-10-17] MEDS: Potassium Chloride 10mEq/100mL 10 MEQ/100 ML IV.SOLN. 100 MEQ IV BOLUS (01:51)
--- NOTE | 2021-10-17 02:56 | PCM.HP.STD ---
[facility] - General General Date of Admission: 10/17/21 Date of Service: 10/17/21 Chief Complaint: Nausea and vomiting HPI Narrative EVERETTE POLANCO, is a 71 M with a significant history of hypertension; depression and GERD who presents to the emergency department with 2 to 3 weeks history of episodic nausea and vomiting. He reports constipation. Last time his bowels moved was the day of presentation. His bowels was small and hard. He reported that recently his bowels moves every 3 to 4 days but he attributed to decreased food intake. Also patient reports losing about 34 pounds in the past 6 weeks. He reports soreness of his abdomen; just above his umbilical button. For the past 2 years he has progressively gotten weak to the point that he is unable to do his activities of daily living. He reports shakiness. His PCP is working him up for Parkinson's disease. Reportedly recently he had MRI and he has an appointment with his PCP on 10/18/2021 at which time he hopes to know the results of the MRI. [facility] Medical History Depression GERD (gastroesophageal reflux disease) Hyperlipidemia Hypertension Nonalcoholic steatohepatitis Normochromic normocytic anemia MARK (obstructive sleep apnea) Parkinson disease Home Medications bupropion HCl 150 mg 24 hr tablet, extended release 150 mg PO DAILY depression 02/26/16 [History Last Taken 10/16/21] cholecalciferol (vitamin D3) 25 mcg (1,000 unit) capsule (Vitamin D3) 2,000 unit PO DAILY supplement 02/26/16 [History Last Taken 10/16/21] sertraline 100 mg tablet 100 mg PO BID depression 02/26/16 [History Last Taken 10/16/21] amlodipine 5 mg tablet 10 mg PO DAILY HTN 01/05/21 [History Last Taken 10/16/21] atorvastatin 10 mg tablet 10 mg PO QHS cholesterol 01/05/21 [History Last Taken 10/15/21] loratadine 10 mg capsule 10 mg PO DAILY allergies 01/05/21 [History Last Taken 10/16/21] naproxen 500 mg tablet 500 mg PO BID pain 01/05/21 [History Last Taken 10/16/21] propranolol 40 mg tablet 40 mg PO BID HTN 01/05/21 [History Last Taken 10/16/21] tamsulosin 0.4 mg capsule 0.4 mg PO QHS BPH 01/05/21 [History Last Taken 10/15/21] albuterol sulfate 90 mcg/actuation aerosol inhaler (Ventolin HFA) 2 puff inhalation Q4H PRN shortness of breath or wheezing #18 grams 02/18/21 [Rx Last Taken Unknown] spacer #1 ea 02/18/21 [Rx Last Taken Unknown] carbidopa ER 50 mg-levodopa 200 mg tablet,extended release 1 tab PO BID parkinson's 10/17/21 [History Last Taken 10/16/21] losartan 100 mg tablet 100 mg PO DAILY HTN 10/17/21 [History Last Taken 10/16/21] Allergy/AdvReac Type Severity Reaction Status Date / Time Penicillins Allergy Hives Verified 10/16/21 22:24 Family History Other Cancer Surgical History H/O oral surgery Social History Smoking Status: Never smoker ROS ROS Narrative Pertinent positives and pertinent negatives as noted in HPI. All other systems were reviewed and are negative Vital Signs Vital Signs Vital Signs: 10/16/21 22:19 10/16/21 22:24 10/16/21 22:31 Temperature 98.2 F Temperature Source Oral Pulse Rate 98 97 Respiratory Rate 18 14 Respiratory Pattern Normal Blood Pressure 111/62 Blood Pressure Mean 78 Pulse Ox 93 93 Oxygen Delivery Method Room Air Room Air 10/17/21 01:07 Temperature Temperature Source Pulse Rate Respiratory Rate Respiratory Pattern Blood Pressure 116/60 Blood Pressure Mean 78 Pulse Ox 95 Oxygen Delivery Method Room Air Weight Weight: 97.427 kg Body Mass Index (BMI) 29.9 Physical Exam Narrative Physical exam: General: Well-nourished, well-developed. Head: Normocephalic, atraumatic, no tenderness Eyes: Sclerae icterus. Vision is grossly intact. EOMI ENT, no trauma, moist mucous membranes, no rhinorrhea Neck: Nontender, full range of motion CVS: Regular rate and rhythm. S1-S2 present. No murmur, gallop or rub. Respiratory : clear to auscultation bilaterally, chest wall nontender, no wheezing Abdomen: Soft, nontender, nondistended, normal bowel sounds, no masses : Deferred Back: Nontender, no CVA tenderness. Extremities: Nontender full range of motion, no trauma Skin: Mild jaundice. Normal color, no trauma, abrasions Neuro: Alert, oriented, cranial nerves II through XII grossly intact. Psychiatry: Normal mood. Normal affect. Not depressed. Not anxious. Results Lab / Micro Data Result Diagrams: 10/16/21 22:34 10/16/21 22:34 Labs: Laboratory Results - last 24 hr 10/16/21 00:44: Urine Color Mindi, Urine Clarity Clear, Urine pH 5.0, Ur Specific [place] 1.015, Urine Protein 30 H, Urine Glucose (UA) Normal, Urine Ketones 15 H, Urine Occult Blood 10 H, Urine Nitrite Negative, Urine Bilirubin 6 H, Urine Urobilinogen 12 H, Ur Leukocyte Esterase 25 H, Urine RBC 0-5 SEEN, Urine WBC 5-10 SEEN, Ur Squamous Epith Cells 0-5 SEEN, Urine Bacteria 3+, Hyaline Casts 0-5 SEEN, Urine Mucus 2+ 10/16/21 22:34: WBC 13.0 H, RBC 3.90 L, Hgb 10.9 L, Hct 34.2 L, MCV 87.7, MCH 27.9, MCHC 31.9 L, RDW Std Deviation 47.7 H, RDW Coeff of Richie 15.0 H, Plt Count 255, MPV 9.8, Immature Gran % (Auto) 0.500, Neut % (Auto) 91.4 H, Lymph % (Auto) 2.8 L, [place] % (Auto) 4.9, Eos % (Auto) 0.1, Baso % (Auto) 0.3, Absolute Neuts (auto) 11.9 H, Absolute Lymphs (auto) 0.36 L, Nucleated RBC % 0 10/16/21 22:34: Sodium 141, Potassium 3.1 L, Chloride 116 H, Carbon Dioxide 17.0 L, Anion Gap 8, BUN 22 H, Creatinine 1.11, Estim Creat Clear Calc 63.13, Est GFR (MDRD) Af Amer 83, Est GFR (MDRD) Non-Af 69, BUN/Creatinine Ratio 19.8, Glucose 103, Calcium 6.8 L, Total Bilirubin 3.90 H, AST 69 H, ALT 28, Alkaline Phosphatase 378 H, Troponin I High Sens 8, Total Protein 5.1 L, Albumin 2.0 L, Globulin 3.1, Albumin/Globulin Ratio 0.6 L Micro: Microbiology 10/16/21 23:20 Nasal Secretion SARS-CoV-2 & FLU Antigen (Rapid) - Final Rhythm Strip Rhythm Strip: Sinus Rhythm Rate: 90 Ectopy: None Radiology Impression Chest X-Ray 10/16/21 23:30 IMPRESSION: No acute abnormal cardiopulmonary finding. Electronically Signed: Masoud Man MD at 0:02 EDT , Abdomen/Pelvis CT 10/17/21 00:54 IMPRESSION: 9 mm obstructing lesion in the distal common bile duct, likely calculus, with diffuse intra and extrahepatic biliary dilation and distention of the gallbladder. Electronically Signed: Masoud Man MD at 2:26 EDT , Assessment & Plan Assessment/Plan (1) Choledocholithiasis: PLAN: Plan Choledocholithiasis Abdomen and pelvis CT was visualized and independently interpreted and I agree with radiologist interpretation of obstruction in the distal common bile duct , likely calculus with diffuse intra and extra hepatic biliary dilatation and distention of gallbladder. Patient has no fever. Soreness at upper umbilical area. Lipase is mildly elevated at 460 Review of CBC showed white count of 13.1. No chills or fever. Likely reactive. Ultrasound of gallbladder ordered. We will start antibiotics empirically. Patient is allergic to penicillin (hives) meropenem started. We will keep patient n.p.o. except meds with sips. Trend CBC. GI consult. Abnormal urinalysis Denies urinary symptoms. Placed on Merrem for choledocholithiasis Debility PT and OT consult. Case management consult Hypokalemia: Potassium on presentation was 3.1. IV potassium ordered at the emergency department. Patient was noted to have hyperchloremia. Half-normal saline with potassium ordered. Trend CMP Hypoalbuminemia/monitoring Reportedly lost 34 pounds in 6 weeks. Suspect malnutrition. Consider dietitian consult when patient is no longer n.p.o. Pseudo-hypocalcemia Corrected calcium of 6.8 with albumin of 2.0. Corrected calcium 8.4. Trend CMP. DVT prophylaxis: SCDs ordered Charges/Coding Visit Charges Inpatient E&M: 66977 Init Hosp L3
[2021-10-17 03:20] LABS: Lipase 460 U/L (73-393)
[2021-10-17] MEDS: Potassium Chloride 40 MEQ in 0.45% Normal Saline 1,000 ML 75 MEQ IV ×2 (04:21→18:43)
[2021-10-17 06:06] LABS: Absolute Lymphocyte Count 0.72 X10^3/uL (0.83-4.51); Absolute Neutrophil Count 11.2 X10^3/uL (2.0-7.7); Basophil# 0.02 X10^3/uL; Basophil% 0.2 % (0-1); Hematocrit 29.5 % (40-54); Hemoglobin 9.3 g/dL (13.0-16.5); Lymphocyte # 0.72 X10^3/ul (0.83-4.51); Lymphocyte % 5.7 % (19-41); Mean Corp Hgb Conc 31.5 g/dL (32-36); Mean Corpuscular Hgb 27.4 pg (27.0-32.0); Mean Platelet Vol. 9.7 fl (6.2-12.0); Monocyte# 0.57 X10^3/uL; Monocyte% 4.5 % (0-10); NRBC Flagged by Analyzer 0 % (0-5); Neutrophil # 11.19 X10^3/uL (2.7-7.7); Platelet Count 212 K/mm3 (150-450); RBC Distribution Width CV 15.1 % (11.6-14.6); Red Blood Count 3.39 M/mm3 (4.6-6.2); White Blood Count 12.6 K/mm3 (4.4-11.0)
[2021-10-17 06:32] LABS: ALB/GLOB Ratio 0.6 RATIO (0.9-2.4); AST(SGOT) 85 U/L (15-37); Alanine Aminotransfer ALT/SGPT 47 U/L (16-61); Albumin, Serum 2.4 g/dL (3.2-5.0); Alkaline Phosphatase 433 U/L (45-117); Anion Gap 7 (5-15); BUN 27 mg/dL (7-18); BUN/Creat Ratio 17.8 RATIO (10-20); Calcium,Total 8.3 mg/dL (8.5-10.1); Chloride 105 mmol/L (98-107); Creatinine, Serum 1.52 mg/dL (0.70-1.30); EST Glomerular Filtration Rate 48 mL/min (>60); Est Glom Filt Rate - Afr Amer 58 mL/min (>60); Globulin 3.7 g/dL (2.2-4.2); Glucose 121 mg/dL (74-106); Potassium 4.6 mmol/L (3.5-5.1); Protein, Total 6.1 g/dL (6.4-8.2); Sodium Level 136 mmol/L (136-145)
--- NOTE | 2021-10-17 11:17 | PCM.PN.HOSP ---
Subjective Subjective Patient was seen and examined. He was admitted this morning with nausea and vomiting ongoing for [address] of the abdomen and pelvis showed 9 mm obstructive lesion in the distal common bile duct, likely calculus with diffuse intra and intrahepatic biliary dilatation distention of gallbladder. Patient is going for ERCP His vitals are stable WBC improved from 13.0-12.6. Home meds reviewed and reconciled Hold losartan and naproxen Continue propranolol, amlodipine with holding parameters QTC is 464 Continue on Zoloft and bupropion Objective Data Objective Data Vital Signs: Vital Signs Temp Pulse Resp BP Pulse Ox O2 Del Method 98.2 F 73 18 139/83 H 96 Room Air 10/17/21 07:35 10/17/21 10:00 10/17/21 07:35 10/17/21 07:35 10/17/21 07:35 10/17/21 08:24 Oxygen Delivery Method Room Air Weight: 98.9 kg Body Mass Index (BMI) 30.4 Intake & Output: Intake and Output for Last 24 Hours 10/15/21 10/16/21 10/17/21 23:59 23:59 23:59 Intake Total 1220 / 1220 Output Total 200 / 200 Balance 1020 / 1020 Lab / Micro Data Result Diagrams: 10/17/21 05:25 10/17/21 05:25 Labs: Laboratory Results - last 24 hr 10/16/21 00:44: Urine Color Mindi, Urine Clarity Clear, Urine pH 5.0, Ur Specific [place] 1.015, Urine Protein 30 H, Urine Glucose (UA) Normal, Urine Ketones 15 H, Urine Occult Blood 10 H, Urine Nitrite Negative, Urine Bilirubin 6 H, Urine Urobilinogen 12 H, Ur Leukocyte Esterase 25 H, Urine RBC 0-5 SEEN, Urine WBC 5-10 SEEN, Ur Squamous Epith Cells 0-5 SEEN, Urine Bacteria 3+, Hyaline Casts 0-5 SEEN, Urine Mucus 2+ 10/16/21 22:34: WBC 13.0 H, RBC 3.90 L, Hgb 10.9 L, Hct 34.2 L, MCV 87.7, MCH 27.9, MCHC 31.9 L, RDW Std Deviation 47.7 H, RDW Coeff of Richie 15.0 H, Plt Count 255, MPV 9.8, Immature Gran % (Auto) 0.500, Neut % (Auto) 91.4 H, Lymph % (Auto) 2.8 L, [place] % (Auto) 4.9, Eos % (Auto) 0.1, Baso % (Auto) 0.3, Absolute Neuts (auto) 11.9 H, Absolute Lymphs (auto) 0.36 L, Nucleated RBC % 0 10/16/21 22:34: Sodium 141, Potassium 3.1 L, Chloride 116 H, Carbon Dioxide 17.0 L, Anion Gap 8, BUN 22 H, Creatinine 1.11, Estim Creat Clear Calc 63.13, Est GFR (MDRD) Af Amer 83, Est GFR (MDRD) Non-Af 69, BUN/Creatinine Ratio 19.8, Glucose 103, Calcium 6.8 L, Total Bilirubin 3.90 H, AST 69 H, ALT 28, Alkaline Phosphatase 378 H, Troponin I High Sens 8, Total Protein 5.1 L, Albumin 2.0 L, Globulin 3.1, Albumin/Globulin Ratio 0.6 L 10/16/21 22:34: Lipase 460 H 10/17/21 05:25: WBC 12.6 H, RBC 3.39 L, Hgb 9.3 L, Hct 29.5 L, MCV 87.0, MCH 27.4, MCHC 31.5 L, RDW Std Deviation 48.0 H, RDW Coeff of Richie 15.1 H, Plt Count 212, MPV 9.7, Immature Gran % (Auto) 0.600, Neut % (Auto) 89.0 H, Lymph % (Auto) 5.7 L, [place] % (Auto) 4.5, Eos % (Auto) 0.0, Baso % (Auto) 0.2, Absolute Neuts (auto) 11.2 H, Absolute Lymphs (auto) 0.72 L, Nucleated RBC % 0 10/17/21 05:25: Sodium 136, Potassium 4.6, Chloride 105, Carbon Dioxide 24.0, Anion Gap 7, BUN 27 H, Creatinine 1.52 H, Estim Creat Clear Calc 46.10, Est GFR (MDRD) Af Amer 58 L, Est GFR (MDRD) Non-Af 48 L, BUN/Creatinine Ratio 17.8, Glucose 121 H, Calcium 8.3 L, Total Bilirubin 5.60 H, AST 85 H, ALT 47, Alkaline Phosphatase 433 H, Total Protein 6.1 L, Albumin 2.4 L, Globulin 3.7, Albumin/Globulin Ratio 0.6 L Micro: Microbiology 10/16/21 23:20 Nasal Secretion SARS-CoV-2 & FLU Antigen (Rapid) - Final Radiography Diagnostic Testing: Radiology Impression Chest X-Ray 10/16/21 23:30 IMPRESSION: No acute abnormal cardiopulmonary finding. Electronically Signed: Masoud Man MD at 0:02 EDT , Abdomen/Pelvis CT 10/17/21 00:54 IMPRESSION: 9 mm obstructing lesion in the distal common bile duct, likely calculus, with diffuse intra and extrahepatic biliary dilation and distention of the gallbladder. Electronically Signed: Masoud Man MD at 2:26 EDT , Rhythm Strip Rhythm Strip: Sinus Rhythm Rate: 90 Ectopy: None
[2021-10-17] MEDS: fentaNYL 100 MCG/2 ML Ampul 25 MCG IV (11:53)
[2021-10-17] MEDS: 0.9% Saline Lock 10 ML Syringe IV ×2 (11:54→13:14)
[2021-10-17] MEDS: Ondansetron 4 MG/2 ML Vial IV (13:14)
[2021-10-17] MEDS: Sertraline 100 MG Tablet PO ×2 (13:43→20:36)
[2021-10-17] MEDS: CARBIDOPA/LEVODOPA CR 50/200 Tablet PO (13:43)
[2021-10-17] MEDS: Propranolol 40 MG Tablet PO ×2 (13:43→20:36)
[2021-10-17] MEDS: buPROPion (XL) 150 MG TABLET.XL PO (13:43)
[2021-10-17] MEDS: Morphine 2 MG/ML Syringe IV (20:34)
[2021-10-17] MEDS: Tamsulosin HCl 0.4 MG Capsule PO (20:34)
[2021-10-17] MEDS: Atorvastatin Calcium 10 MG Tablet PO (20:36)
--- NOTE | 2021-10-17 21:09 | CON.PCM_ITS ---
Assessment & Plan Assessment/Plan (1) Biliary calculus with obstruction without cholecystitis: PLAN: Acute choledocholithiasis without cholecystitis causing jaundice, pancreatitis and possible cholangitis. Recommend continue antibiotic therapy. Patient will undergo ERCP tomorrow. He was explained alternatives, risk, benefits including outstanding bleeding, infection, sepsis, perforation, need for emergent . He will have an ASA of 2. (2) Pancreatitis: PLAN: Mild gallstone pancreatitis secondary to choledocholithiasis. I suspect that this has been going on for a long time as he has been having worsening abdominal pain for the last 2 years. He did undergo an upper endoscopy by Dr. Choudhary and it did not show any acute findings. He has never had any imaging of his abdomen pelvis since he had a diagnosis of acute diverticulitis back in 2016. HPI Consult Data Date of Consult: 10/17/21 HPI Narrative Reason for Consultation: Choledocholithiasis HPI Narrative: EVERETTE POLANCO, is a 71 M who presents from home with weakness, lethargy and right upper quadrant pain. He was unable to get out of bed tonight to go to the bathroom according to the . He has felt weak for years but usually able to get around.? His doctor thinks he has Parkinson's so he started him on carbidopa/levodopa 2 or 3 weeks ago, for the first couple of days he was fine and then overnight 1 night he was sick to his stomach and vomiting so he decided himself to discontinue the medication.? It was around this time according to the both of them that they suspect they both had COVID because their son had it but did not know it until after he was at their house with them and then they both became ill but did not test themselves.? He had cough, myalgias, some chills.? He states most of that is gone and he has a minor lingering cough still. He discontinued the medication for about 2 weeks, and then restarted it 2 days ago and states he has been vomiting again, but only 3 times or so.? They are concerned it is the medication.? He states he has had some minor supraumbilical abdominal pains that go away when he gets up and walks around but no other abdominal pain.? Constipated recently but no diarrhea, bright red blood per rectum, melena.? He has been eating and drinking a lot less in the past week.? He has chronic urinary urgency followed by not urinating as much as he would expect which is no different recently. Biochemical analysis in the ED had shown a cholestatic hepatitis with jaundice. His bilirubin continues to go up. He got a CT scan of the abdomen and pelvis had shown a 9 mm filling defect in the distal common bile duct and multiple stones in the gallbladder along with enlarged common bile duct diameter of 2.1. He was also discovered to have elevated lipase consistent with possible pancreatitis. He was started on antibiotic therapy and IV fluids. [facility] Medical History Depression GERD (gastroesophageal reflux disease) Hyperlipidemia Hypertension Nonalcoholic steatohepatitis Normochromic normocytic anemia MARK (obstructive sleep apnea) Parkinson disease Home Medications bupropion HCl 150 mg 24 hr tablet, extended release 150 mg PO DAILY depression 02/26/16 [History Last Taken 10/16/21] cholecalciferol (vitamin D3) 25 mcg (1,000 unit) capsule (Vitamin D3) 2,000 unit PO DAILY supplement 02/26/16 [History Last Taken 10/16/21] sertraline 100 mg tablet 100 mg PO BID depression 02/26/16 [History Last Taken 10/16/21] amlodipine 5 mg tablet 10 mg PO DAILY HTN 01/05/21 [History Last Taken 10/16/21] atorvastatin 10 mg tablet 10 mg PO QHS cholesterol 01/05/21 [History Last Taken 10/15/21] loratadine 10 mg capsule 10 mg PO DAILY allergies 01/05/21 [History Last Taken 10/16/21] naproxen 500 mg tablet 500 mg PO BID pain 01/05/21 [History Last Taken 10/16/21] propranolol 40 mg tablet 40 mg PO BID HTN 01/05/21 [History Last Taken 10/16/21] tamsulosin 0.4 mg capsule 0.4 mg PO QHS BPH 01/05/21 [History Last Taken 10/15/21] albuterol sulfate 90 mcg/actuation aerosol inhaler (Ventolin HFA) 2 puff inhalation Q4H PRN shortness of breath or wheezing #18 grams 02/18/21 [Rx Last Taken Unknown] spacer #1 ea 02/18/21 [Rx Last Taken Unknown] carbidopa ER 50 mg-levodopa 200 mg tablet,extended release 1 tab PO BID parkinson's 10/17/21 [History Last Taken 10/16/21] losartan 100 mg tablet 100 mg PO DAILY HTN 10/17/21 [History Last Taken 10/16/21] Allergy/AdvReac Type Severity Reaction Status Date / Time Penicillins Allergy Hives Verified 10/16/21 22:24 Family History Other Cancer Surgical History H/O oral surgery Social History Smoking Status: Never smoker ROS ROS Narrative Pertinent positives and pertinent negatives as noted in HPI. All other systems were reviewed and are negative Physical Exam Narrative Physical exam: General: Well-nourished, well-developed. Head: Normocephalic, atraumatic, no tenderness Eyes: Sclerae icterus. Vision is grossly intact. EOMI ENT, no trauma, moist mucous membranes, no rhinorrhea Neck: Nontender, full range of motion CVS: Regular rate and rhythm. S1-S2 present. No murmur, gallop or rub. Respiratory : clear to auscultation bilaterally, chest wall nontender, no wheezing Abdomen: Soft, nontender, nondistended, normal bowel sounds, no masses : Deferred Back: Nontender, no CVA tenderness. Extremities: Nontender full range of motion, no trauma Skin: Mild jaundice. Normal color, no trauma, abrasions Neuro: Alert, oriented, cranial nerves II through XII grossly intact. Psychiatry: Normal mood. Normal affect. Not depressed. Not anxious. Medical Records Data Medical Nutrition Assessment Dietitian: Malnutrition Criteria Met Start: 10/17/21 12:33 Freq: Status: Active Protocol: Document 10/17/21 12:34 RMA (Rec: 10/17/21 12:34 RMA [id number]) Nutrition Malnutrition Evidence of Malnutrition Exists Yes Malnutrition (severe): Acute Illness/Injury Evidenced By Suboptimal Energy Intake ( Severe),Weight Loss (Severe) Intake Problem Inadequate Oral Intake Etiology related to altered GI function Signs/Symptoms as evidenced by NPO Status Active Problem Clinical Problem Biting/Chewing Difficulty Etiology Difficulty chewing related to impaired dentition Signs/Symptoms as evidenced by need for soft foods, partly edentulous state /poorly fitting upper dentures (not wearing) and lower bridge not in place Status Active Problem Acute Disease or Injury Related Malnutrition Etiology Severe protein-calorie malnutrition in the context of acute illness related to altered GI function and inadequate oral intake Signs/Symptoms as evidenced by 8% wt loss in less than 2 months, reported nausea and vomiting, currently NPO, hypoactive bowel sounds and PO meeting less than 50% estimated nutrition needs prior to admission x past 1-2 months Status Active Problem Recommendation Dietitian Recommendations/Changes Recommend Transitional diet as medically able with goal of Cardiac diet as tolerated. Consider parenteral nutrition support if unable to advance PO diet in next 24-48 hours. Ensure Clear as diet advanced from NPO. Adjust texture of foods and ONS as needed once diet initiated. Lab / Micro Data Result Diagrams: 10/17/21 05:25 10/17/21 05:25 Labs: Laboratory Results - last 24 hr 10/16/21 00:44: Urine Color Mindi, Urine Clarity Clear, Urine pH 5.0, Ur Specific [place] 1.015, Urine Protein 30 H, Urine Glucose (UA) Normal, Urine Ketones 15 H, Urine Occult Blood 10 H, Urine Nitrite Negative, Urine Bilirubin 6 H, Urine Urobilinogen 12 H, Ur Leukocyte Esterase 25 H, Urine RBC 0-5 SEEN, Urine WBC 5-10 SEEN, Ur Squamous Epith Cells 0-5 SEEN, Urine Bacteria 3+, Hyaline Casts 0-5 SEEN, Urine Mucus 2+ 10/16/21 22:34: WBC 13.0 H, RBC 3.90 L, Hgb 10.9 L, Hct 34.2 L, MCV 87.7, MCH 27.9, MCHC 31.9 L, RDW Std Deviation 47.7 H, RDW Coeff of Richie 15.0 H, Plt Count 255, MPV 9.8, Immature Gran % (Auto) 0.500, Neut % (Auto) 91.4 H, Lymph % (Auto) 2.8 L, [place] % (Auto) 4.9, Eos % (Auto) 0.1, Baso % (Auto) 0.3, Absolute Neuts (auto) 11.9 H, Absolute Lymphs (auto) 0.36 L, Nucleated RBC % 0 10/16/21 22:34: Sodium 141, Potassium 3.1 L, Chloride 116 H, Carbon Dioxide 17.0 L, Anion Gap 8, BUN 22 H, Creatinine 1.11, Estim Creat Clear Calc 63.13, Est GFR (MDRD) Af Amer 83, Est GFR (MDRD) Non-Af 69, BUN/Creatinine Ratio 19.8, Glucose 103, Calcium 6.8 L, Total Bilirubin 3.90 H, AST 69 H, ALT 28, Alkaline Phos phatase 378 H, Troponin I High Sens 8, Total Protein 5.1 L, Albumin 2.0 L, Globulin 3.1, Albumin/Globulin Ratio 0.6 L 10/16/21 22:34: Lipase 460 H 10/17/21 05:25: WBC 12.6 H, RBC 3.39 L, Hgb 9.3 L, Hct 29.5 L, MCV 87.0, MCH 27.4, MCHC 31.5 L, RDW Std Deviation 48.0 H, RDW Coeff of Richie 15.1 H, Plt Count 212, MPV 9.7, Immature Gran % (Auto) 0.600, Neut % (Auto) 89.0 H, Lymph % (Auto) 5.7 L, [place] % (Auto) 4.5, Eos % (Auto) 0.0, Baso % (Auto) 0.2, Absolute Neuts (auto) 11.2 H, Absolute Lymphs (auto) 0.72 L, Nucleated RBC % 0 10/17/21 05:25: Sodium 136, Potassium 4.6, Chloride 105, Carbon Dioxide 24.0, Anion Gap 7, BUN 27 H, Creatinine 1.52 H, Estim Creat Clear Calc 46.10, Est GFR (MDRD) Af Amer 58 L, Est GFR (MDRD) Non-Af 48 L, BUN/Creatinine Ratio 17.8, Glucose 121 H, Calcium 8.3 L, Total Bilirubin 5.60 H, AST 85 H, ALT 47, Alkaline Phosphatase 433 H, Total Protein 6.1 L, Albumin 2.4 L, Globulin 3.7, Albumin/Globulin Ratio 0.6 L Micro: Microbiology 10/16/21 23:20 Nasal Secretion SARS-CoV-2 & FLU Antigen (Rapid) - Final Rhythm Strip Rhythm Strip: Sinus Rhythm Rate: 90 Ectopy: None Radiology Impression Chest X-Ray 10/16/21 23:30 IMPRESSION: No acute abnormal cardiopulmonary finding. Electronically Signed: Masoud Man MD at 0:02 EDT , Abdomen/Pelvis CT 10/17/21 00:54 IMPRESSION: 9 mm obstructing lesion in the distal common bile duct, likely calculus, with diffuse intra and extrahepatic biliary dilation and distention of the gallbladder. Electronically Signed: Masoud Man MD at 2:26 EDT , Charges/Coding Visit Charges Inpatient E&M: 20498 Init Hosp L2
[2021-10-18] VITALS (14 sets, daily range): BP systolic 88–137; BP diastolic 51–77; PULSE 59–78; RESP 14–18; TEMP 36.5–37.4; O2SAT 92–97
[2021-10-18] MEDS: Morphine 2 MG/ML Syringe IV (00:54)
[2021-10-18 03:48] LABS: Absolute Lymphocyte Count 0.81 X10^3/uL (0.83-4.51); Absolute Neutrophil Count 5.9 X10^3/uL (2.0-7.7); Basophil# 0.02 X10^3/uL; Basophil% 0.3 % (0-1); Eosinophil# 0.04 X10^3/uL; Eosinophils% 0.5 % (0-5); Hematocrit 27.1 % (40-54); Hemoglobin 8.7 g/dL (13.0-16.5); Lymphocyte # 0.81 X10^3/ul (0.83-4.51); Lymphocyte % 10.9 % (19-41); Mean Corp Hgb Conc 32.1 g/dL (32-36); Mean Corpuscular Hgb 27.7 pg (27.0-32.0); Mean Corpuscular Volume 86.3 fL (80-94); Mean Platelet Vol. 9.6 fl (6.2-12.0); Monocyte# 0.56 X10^3/uL; Monocyte% 7.6 % (0-10); NRBC Flagged by Analyzer 0 % (0-5); Neutrophil % 79.8 % (47-70); Platelet Count 152 K/mm3 (150-450); RBC Distribution Width CV 15.2 % (11.6-14.6); RBC Distribution Width SD 48.1 fl (35.1-43.9); Red Blood Count 3.14 M/mm3 (4.6-6.2); White Blood Count 7.4 K/mm3 (4.4-11.0)
[2021-10-18 04:17] LABS: ALB/GLOB Ratio 0.6 RATIO (0.9-2.4); AST(SGOT) 79 U/L (15-37); Alanine Aminotransfer ALT/SGPT 39 U/L (16-61); Albumin, Serum 2.1 g/dL (3.2-5.0); Alkaline Phosphatase 393 U/L (45-117); Anion Gap 8 (5-15); BUN 23 mg/dL (7-18); BUN/Creat Ratio 16.5 RATIO (10-20); Calcium,Total 8.3 mg/dL (8.5-10.1); Chloride 106 mmol/L (98-107); Creatinine, Serum 1.39 mg/dL (0.70-1.30); EST Glomerular Filtration Rate 53 mL/min (>60); Est Glom Filt Rate - Afr Amer 64 mL/min (>60); Estimated Creatinine Clearance 50.41 ml/min; Globulin 3.8 g/dL (2.2-4.2); Glucose 99 mg/dL (74-106); Potassium 4.6 mmol/L (3.5-5.1); Protein, Total 5.9 g/dL (6.4-8.2); Sodium Level 137 mmol/L (136-145)
[2021-10-18] MEDS: Potassium Chloride 40 MEQ in 0.45% Normal Saline 1,000 ML 75 MEQ IV (06:46)
--- NOTE | 2021-10-18 07:26 | PN.HOSP_ITS ---
Subjective Subjective Patient is a 71-year-old gentleman who presented with a 2-week history of nausea vomiting generalized weakness as well as abdominal pain. CT of the abdomen obtained on admission demonstrated 9 mm obstructing lesion in the distal common bile duct, likely calculus, with diffuse intra and extrahepatic biliary dilation and distention of the gallbladder.. Admitted to regular nursing floor with consultation placed to GI Objective Data Objective Data Vital Signs: Vital Signs Temp Pulse Resp BP Pulse Ox O2 Del Method 98.2 F 63 14 121/68 H 95 Room Air 10/18/21 03:30 10/18/21 06:00 10/18/21 03:30 10/18/21 03:30 10/18/21 03:30 10/18/21 03:30 Oxygen Delivery Method Room Air Weight: 98.9 kg Body Mass Index (BMI) 30.4 Intake & Output: Intake and Output for Last 24 Hours 10/16/21 10/17/21 10/18/21 23:59 23:59 23:59 Intake Total 2530 / 3080 1573.75 / 1573.75 Output Total 1050 / 1300 600 / 600 Balance 1480 / 1780 973.75 / 973.75 Medical Nutrition Assessment Dietitian: Malnutrition Criteria Met Start: 10/17/21 12:33 Freq: Status: Active Protocol: Document 10/17/21 12:34 RMA (Rec: 10/17/21 12:34 RMA [id number]) Nutrition Malnutrition Evidence of Malnutrition Exists Yes Malnutrition (severe): Acute Illness/Injury Evidenced By Suboptimal Energy Intake ( Severe),Weight Loss (Severe) Intake Problem Inadequate Oral Intake Etiology related to altered GI function Signs/Symptoms as evidenced by NPO Status Active Problem Clinical Problem Biting/Chewing Difficulty Etiology Difficulty chewing related to impaired dentition Signs/Symptoms as evidenced by need for soft foods, partly edentulous state /poorly fitting upper dentures (not wearing) and lower bridge not in place Status Active Problem Acute Disease or Injury Related Malnutrition Etiology Severe protein-calorie malnutrition in the context of acute illness related to altered GI function and inadequate oral intake Signs/Symptoms as evidenced by 8% wt loss in less than 2 months, reported nausea and vomiting, currently NPO, hypoactive bowel sounds and PO meeting less than 50% estimated nutrition needs prior to admission x past 1-2 months Status Active Problem Recommendation Dietitian Recommendations/Changes Recommend Transitional diet as medically able with goal of Cardiac diet as tolerated. Consider parenteral nutrition support if unable to advance PO diet in next 24-48 hours. Ensure Clear as diet advanced from NPO. Adjust texture of foods and ONS as needed once diet initiated. Lab / Micro Data Result Diagrams: 10/18/21 03:30 10/18/21 03:30 Labs: Laboratory Results - last 24 hr 10/18/21 03:30: WBC 7.4, RBC 3.14 L, Hgb 8.7 L, Hct 27.1 L, MCV 86.3, MCH 27.7, MCHC 32.1, RDW Std Deviation 48.1 H, RDW Coeff of Richie 15.2 H, Plt Count 152, MPV 9.6, Immature Gran % (Auto) 0.900, Neut % (Auto) 79.8 H, Lymph % (Auto) 10.9 L, Robeson % (Auto) 7.6, Eos % (Auto) 0.5, Baso % (Auto) 0.3, Absolute Neuts (auto) 5.9, Absolute Lymphs (auto) 0.81 L, Nucleated RBC % 0 10/18/21 03:30: Sodium 137, Potassium 4.6, Chloride 106, Carbon Dioxide 23.0, Anion Gap 8, BUN 23 H, Creatinine 1.39 H, Estim Creat Clear Calc 50.41, Est GFR (MDRD) Af Amer 64, Est GFR (MDRD) Non-Af 53 L, BUN/Creatinine Ratio 16.5, Gluc ose 99, Calcium 8.3 L, Total Bilirubin 6.50 H, AST 79 H, ALT 39, Alkaline Phosphatase 393 H, Total Protein 5.9 L, Albumin 2.1 L, Globulin 3.8, Albumin /Globulin Ratio 0.6 L Micro: Microbiology 10/16/21 23:20 Nasal Secretion SARS-CoV-2 & FLU Antigen (Rapid) - Final Rhythm Strip Rhythm Strip: Sinus Rhythm Rate: 90 Ectopy: None Physical Exam Narrative GENERAL: cooperative HEENT: Atraumatic; EYES; jaundiced NECK; supple, normal thyroid, RESPIRATORY: Diminished to auscultation CARDIOVASCULAR: Regular S1 S2, GI: soft, normoactive bowel sounds, : No Renal angle tenderness; EXTREMITIES: No edema, no clubbing, MUSCULOSKELETAL: no muscle wasting NEURO: Awake; no lateralizing signs. SKIN: No Rash PSYCH; Flat affect Assessment & Plan Assessment/Plan (1) Choledocholithiasis: PLAN: Plan Patient is a 71-year-old gentleman who presented with a 2-week history of nausea vomiting generalized weakness as well as abdominal pain. CT of the abdomen obtained on admission demonstrated 9 mm obstructing lesion in the distal common bile duct, likely calculus, with diffuse intra and extrahepatic biliary dilation and distention of the gallbladder.. Admitted to regular nursing floor with co nsultation placed to GI 1. Choledocholithiasis ?CT of the abdomen obtained on admission demonstrated 9 mm obstructing lesion in the distal common bile duct, likely calculus, with diffuse intra and e xtrahepatic biliary dilation and distention of the gallbladder.. Admitted to regular nursing floor with consultation placed to GI plan for patient to undergo ERCP 2. Mildly abnormal urinalysis ? Patient is on antibiotics 3. Acute renal insufficiency ? Patient creatinine on admission was 1.1 peaked at 1.5 to down to 1.39 as of 10/18/2021 4. Hypertension - Blood pressure controlled, home medications continued with dose adjustment as needed 5. Newly diagnosed Parkinson's disease ? Patient is on Sinemet and continue 6. Dyslipidemia -Patient is on statin therapy, continued at home dose 8. BPH ? Patient is on tamsulosin 9. Anemia - Secondary to chronic disorder monitoring H&H and transfuse if patient becomes symptomatic or hemoglobin falls below 7 10. DVT prophylaxis ? SCDs for now Charges/Coding Visit Charges Inpatient E&M: 46684 Subs Hosp L3
--- NOTE | 2021-10-18 07:35 | RAD_ITS ---
STUDY: ERCP REASON FOR EXAM: Male, 71 years old. Jaundice, biliary dilatation RADIATION DOSAGE (If Supplied By Facility): CTDIvol = ( ) mGy, DLP = ( ) mGycm. Individualized dose optimization techniques were used for this CT.? FLUOROSCOPY TIME (if supplied): ( 49 seconds TECHNIQUE: 8 intraoperative C-arm films obtained COMPARISON: CT scan from 10/17/2021 FINDINGS: The endoscope was placed by Dr. Almeida. The ampulla of VATER was cannulized by a wire from the endoscope and then a catheter was advanced over the wire into the biliary tree. There is significant biliary dilatation and the common bile duct as well as within the biliary radicles. There is an irregular suspicious lesion in the distal common bile duct concerning for a primary neoplasm. This is likely the cause of the biliary dilatation. There are also lucencies within the common bile duct which I suspect represent gallstones but these could also represent air bubbles. No extravasation of contrast was noted outside the lumen of the biliary tree RAD/ERCP Biliary Only IMPRESSION: Significant dilatation of the extrahepatic common bile duct and biliary radicles likely due to an irregular lesion along the distal common bile duct. There also appear to be multiple gallstones within the common bile duct but these could also represent air bubbles if there has been a sphincterotomy No extravasation of contrast outside the lumen of the biliary tree Electronically Signed: Devon Jimenez MD at 15:53 EDT ,
--- NOTE | 2021-10-18 08:00 | US_ITS ---
STUDY: ABDOMINAL ULTRASOUND - RIGHT UPPER QUADRANT REASON FOR VISIT: Male, 71 years old Rule out cholecystitis/cholangitis TECHNIQUE: Ultrasound evaluation of the right upper quadrant was performed with real-time and static guerra-scale imaging. TECHNICAL QUALITY: Adequate. COMPARISON: Comparison is made with prior examination dated 02/27/[address] scan dated 10/17/2021. FINDINGS: Liver: The liver measures 17.7 cm. There is normal echogenicity of the liver. The bile ducts are dilated. There is hepatic color flow. The direction of portal flow is hepatopetal. There is no demonstrated mass lesion. Gallbladder: There is a distended gallbladder. The gallbladder wall measures 3 mm. There is a positive sonographic Osborn''s sign. There is no pericholecystic fluid. There are multiple echogenic structures within the gallbladder, consistent with multiple gallstones. Common Bile Duct (C.B.D.): The common bile duct is distended and measures 17 mm. Pancreas: Normal size of the head, body and tail of the pancreas. There is normal echogenicity of the pancreas. There is no demonstrated pancreatic mass or cyst. Right Kidney: Normal size of the right kidney. The right kidney measures 11 cm x 5.2 cm x 6.6 cm. Normal renal cortex. The right cortex measures 1.6 cm. There is no demonstrated renal mass or cyst. There is no right hydronephrosis. US/Gallbladder IMPRESSION: Multiple gallstones. Dilated common bile duct. Central intrahepatic ductal dilatation. Electronically Signed: Prashanth Kimbrough MD at 13:15 EDT ,
--- NOTE | 2021-10-18 09:45 | CASEMGMT ---
RN CAM Face to Face with patient for initial transition planning/care coordination assessment. RN CM introduced self and role at [facility]. Patient lying in bed, alert and oriented. Patient willing to participate in assessment and is able to answer all questions appropriately. Care providers, pharmacy, and demographics verified. Patient wishes to discharge home, denies need for home health at this time. Patient states he has no further needs or concerns at this time. CM to follow for discharge planning needs that may arise. PCP: [facility] Specialists: none Preferred Pharmacy: [facility] retail at discharge. Insurance: Payvment Prescription Benefit: yes Living Will/HPOA: none LNOK: Living Arrangements: Patient lives with in a mobile home with 8 steps and railing to enter. Patient states he is independent at home. Transportation: self, DME/HHC: Patient states he has cane and shower chair at home. Patient denies previous HHC or SNF. Disposition Plan: Patient to discharge home with family support and follow-up plans in place. Marielena SANTOS, RN, CM
--- NOTE | 2021-10-18 10:32 | NURSING ---
[facility] IN PHARMACY WAS ASKED TO SEND THE PROPRANOLOL TO UNIT, PT NEEDS PRIOR TO HIS PROCEDURE
[2021-10-18] MEDS: Propranolol 40 MG Tablet PO ×2 (10:49→21:59)
--- NOTE | 2021-10-18 14:06 | OP.CCLET_ITS ---
10/18/2021 Luigi Kirk [address] [place] [address] Re : ERCP procedure for Gilbert Fungider Dear Dr. Kirk This procedure was performed on Monday, October 18, 2021. My impressions and recommendations are as follows: Impressions : - The entire main bile duct was dilated, with a stone causing an obstruction. - Choledocholithiasis with an obstruction was found. Complete removal was accomplished by biliary sphincterotomy and balloon extraction. - A biliary sphincterotomy was performed. - The biliary tree was swept. - Common bile duct was successfully dilated. - One temporary stent was placed into the common bile duct. Recommendations : My findings are described in the full procedure note, which is enclosed. If I can be of further assistance, please feel free to contact me at . Sincerely, Taj Almeida, 10/18/2021 2:05:46 PM This report has been signed electronically.
--- NOTE | 2021-10-18 14:06 | OP.ERCP_ITS ---
Patient Name: Gilbert Whitlock Procedure Date: 10/18/2021 1:12 PM Date of : 1950 Age: 71 Procedure: ERCP Indications: Bile duct stone(s) Providers: Taj Almeida DO Medicines: Monitored Anesthesia Care Patient Profile: This is a 71 year old male. Refer to note in patient chart for documentation of history and physical. Patient has symptoms of acute jaundice. Complications: No immediate complications. Procedure: Pre-Anesthesia Assessment: - Prior to the procedure, a History and Physical was performed, and patient medications and allergies were reviewed. The risks and benefits of the procedure and the sedation options and risks were discussed with the patient. All questions were answered and informed consent was obtained. Patient identification and proposed procedure were verified by the physician. Mental Status Examination: alert and oriented. Airway Examination: normal oropharyngeal airway and neck mobility. Respiratory Examination: clear to auscultation. CV Examination: normal. Prophylactic Antibiotics: The patient does not require prophylactic antibiotics. Prior Anticoagulants: The patient has taken no previous anticoagulant or antiplatelet agents. After reviewing the risks and benefits, the patient was deemed in satisfactory condition to undergo the procedure. The anesthesia plan was to use moderate sedation / analgesia (conscious sedation). Immediately prior to administration of medications, the patient was re-assessed for adequacy to receive sedatives. The heart rate, respiratory rate, oxygen saturations, blood pressure, adequacy of pulmonary ventilation, and response to care were monitored throughout the procedure. The physical status of the patient was re-assessed after the procedure. After obtaining informed consent, the scope was passed under direct vision. Throughout the procedure, the patient's blood pressure, pulse, and oxygen saturations were monitored continuously. The Duodenoscope was introduced through the mouth, and advanced to the duodenum and used to cannulate the bile duct. The ERCP was accomplished without difficulty. The patient tolerated the procedure well. Scope In: 1:45:24 PM Scope Out: 1:59:52 PM Total Procedure Duration Time 0 hours 14 minutes 28 seconds Findings: The adz worker film was normal. The esophagus was successfully intubated under direct vision. The scope was advanced to a normal major papilla in the descending duodenum without detailed examination of the pharynx, larynx and associated structures, and upper GI tract. The upper GI tract was grossly normal. The bile duct was deeply cannulated with the short-nosed traction sphincterotome. Contrast was injected. I personally interpreted the bile duct images. There was brisk flow of contrast through the ducts. The lower third of the main bile duct was completely obstructed by what appeared to be a stone. Opacification of the entire biliary tree except for the gallbladder was successful. The maximum diameter of the ducts was 10 mm. The lower third of the main bile duct contained one stone, which was 6 mm in diameter. The main bile duct was diffusely dilated, with a stone causing an obstruction. The largest diameter was 20 mm. A straight Roadrunner wire was passed into the biliary tree. A 5 mm biliary sphincterotomy was made with a traction (standard) sphincterotome using ERBE electrocautery. The sphincterotomy oozed blood. The biliary tree was swept with a 15 mm balloon starting at the bifurcation. Sludge was swept from the duct. All stones were removed. Dilation of the common bile duct with a 6-7-8 mm balloon (to a maximum balloon size of 8 mm) dilator was successful. One 10 Fr by 9 cm transpapillary temporary stent with a single internal flap was placed 5 cm into the common bile duct. Bile and pus flowed through the stent. The stent was in good position. Impression: - The entire main bile duct was dilated, with a stone causing an obstruction. - Choledocholithiasis with an obstruction was found. Complete removal was accomplished by biliary sphincterotomy and balloon extraction. - A biliary sphincterotomy was performed. - The biliary tree was swept. - Common bile duct was successfully dilated. - One temporary stent was placed into the common bile duct. Procedure Code(s): --- Professional --- 88074, Endoscopic retrograde cholangiopancreatography (ERCP); with placement of endoscopic stent into biliary or pancreatic duct, including pre- and post-dilation and guide wire passage, when performed, including sphincterotomy, when performed, each stent [id number], Endoscopic retrograde cholangiopancreatography (ERCP); with removal of calculi/debris from biliary/pancreatic duct(s) 89551, 26, Endoscopic catheterization of the biliary ductal system, radiological supervision and interpretation CPT copyright 2017 [employer]. All rights reserved. The codes documented in this report are preliminary and upon cell biology scientist review may be revised to meet current compliance requirements. Taj Almeida DO 10/18/2021 2:05:46 PM This report has been signed electronically. Number of Addenda: 0 Note Initiated On: 10/18/2021 1:12 PM
[2021-10-18] MEDS: CARBIDOPA/LEVODOPA CR 50/200 Tablet PO (15:23)
[2021-10-18] MEDS: Tamsulosin HCl 0.4 MG Capsule PO (21:59)
[2021-10-18] MEDS: Sertraline 100 MG Tablet PO (21:59)
[2021-10-18] MEDS: Atorvastatin Calcium 10 MG Tablet PO (21:59)
[2021-10-19] VITALS (10 sets, daily range): BP systolic 138–149; BP diastolic 69–77; PULSE 55–67; RESP 14–18; TEMP 36.5–36.9; O2SAT 95–99
[2021-10-19] MEDS: Potassium Chloride 40 MEQ in 0.45% Normal Saline 1,000 ML 75 MEQ IV ×2 (02:11→15:57)
[2021-10-19 05:50] LABS: Absolute Lymphocyte Count 0.86 X10^3/uL (0.83-4.51); Absolute Neutrophil Count 4.2 X10^3/uL (2.0-7.7); Basophil# 0.01 X10^3/uL; Basophil% 0.2 % (0-1); Eosinophil# 0.05 X10^3/uL; Eosinophils% 0.9 % (0-5); Hematocrit 27.1 % (40-54); Hemoglobin 8.6 g/dL (13.0-16.5); Lymphocyte # 0.86 X10^3/ul (0.83-4.51); Lymphocyte % 15.2 % (19-41); Mean Corp Hgb Conc 31.7 g/dL (32-36); Mean Corpuscular Volume 88.3 fL (80-94); Mean Platelet Vol. 10.3 fl (6.2-12.0); Monocyte# 0.43 X10^3/uL; Monocyte% 7.6 % (0-10); NRBC Flagged by Analyzer 0 % (0-5); Neutrophil # 4.22 X10^3/uL (2.7-7.7); Neutrophil % 74.7 % (47-70); Platelet Count 154 K/mm3 (150-450); RBC Distribution Width CV 15.4 % (11.6-14.6); RBC Distribution Width SD 49.9 fl (35.1-43.9); Red Blood Count 3.07 M/mm3 (4.6-6.2); White Blood Count 5.7 K/mm3 (4.4-11.0)
[2021-10-19] MEDS: CARBIDOPA/LEVODOPA CR 50/200 Tablet PO ×2 (05:53→15:06)
[2021-10-19 06:24] LABS: AST(SGOT) 66 U/L (15-37); Alanine Aminotransfer ALT/SGPT 52 U/L (16-61); Albumin, Serum 1.9 g/dL (3.2-5.0); Alkaline Phosphatase 398 U/L (45-117); Anion Gap 7 (5-15); BUN 25 mg/dL (7-18); BUN/Creat Ratio 21.7 RATIO (10-20); Bilirubin, Direct 1.88 mg/dL (0.00-0.30); Calcium,Total 8.3 mg/dL (8.5-10.1); Chloride 106 mmol/L (98-107); Creatinine, Serum 1.15 mg/dL (0.70-1.30); EST Glomerular Filtration Rate 66 mL/min (>60); Est Glom Filt Rate - Afr Amer 80 mL/min (>60); Estimated Creatinine Clearance 60.93 ml/min; Globulin 3.9 g/dL (2.2-4.2); Glucose 85 mg/dL (74-106); Magnesium 2.1 mg/dL (1.6-2.6); Phosphorus 3.3 mg/dL (2.5-4.9); Potassium 4.7 mmol/L (3.5-5.1); Protein, Total 5.8 g/dL (6.4-8.2); Sodium Level 135 mmol/L (136-145)
--- NOTE | 2021-10-19 07:17 | PCM.PN.HOSP ---
Subjective Subjective Patient underwent ERCP by Dr. Almeida on 10/18/2021. ? Impressions : - The entire main bile duct was dilated, with a stone causing an obstruction. - Choledocholithiasis with an obstruction was found.? Complete removal was ?accomplished by biliary sphincterotomy and balloon extraction. - A biliary sphincterotomy was performed. - The biliary tree was swept. - Common bile duct was successfully dilated. - One temporary stent was placed into the common bile duct. ?Patient also complains of feeling extremely weak. Requested for PT OT eval Objective Data Objective Data Vital Signs: Vital Signs Temp Pulse Resp BP Pulse Ox O2 Del Method 97.8 F 61 16 149/74 H 97 Room Air 10/19/21 05:45 10/19/21 05:45 10/19/21 05:45 10/19/21 05:45 10/19/21 05:45 10/19/21 05:45 Oxygen Delivery Method Room Air Weight: 98.9 kg Body Mass Index (BMI) 30.4 Intake & Output: Intake and Output for Last 24 Hours 10/17/21 10/18/21 10/19/21 23:59 23:59 23:59 Intake Total 2530 / 3080 2833.75 / 2993.75 280 / 280 Output Total 1050 / 1300 1175 / 1375 725 / 725 Balance 1480 / 1780 1658.75 / 1618.75 -445 / -445 Medical Nutrition Assessment Dietitian: Malnutrition Criteria Met Start: 10/17/21 12:33 Freq: Status: Active Protocol: Document 10/17/21 12:34 RMA (Rec: 10/17/21 12:34 RMA [id number]) Nutrition Malnutrition Evidence of Malnutrition Exists Yes Malnutrition (severe): Acute Illness/Injury Evidenced By Suboptimal Energy Intake ( Severe),Weight Loss (Severe) Intake Problem Inadequate Oral Intake Etiology related to altered GI function Signs/Symptoms as evidenced by NPO Status Active Problem Clinical Problem Biting/Chewing Difficulty Etiology Difficulty chewing related to impaired dentition Signs/Symptoms as evidenced by need for soft foods, partly edentulous state /poorly fitting upper dentures (not wearing) and lower bridge not in place Status Active Problem Acute Disease or Injury Related Malnutrition Etiology Severe protein-calorie malnutrition in the context of acute illness related to altered GI function and inadequate oral intake Signs/Symptoms as evidenced by 8% wt loss in less than 2 months, reported nausea and vomiting, currently NPO, hypoactive bowel sounds and PO meeting less than 50% estimated nutrition needs prior to admission x past 1-2 months Status Active Problem Recommendation Dietitian Recommendations/Changes Recommend Transitional diet as medically able with goal of Cardiac diet as tolerated. Consider parenteral nutrition support if unable to advance PO diet in next 24-48 hours. Ensure Clear as diet advanced from NPO. Adjust texture of foods and ONS as needed once diet initiated. Lab / Micro Data Result Diagrams: 10/19/21 04:32 10/19/21 04:32 Labs: Laboratory Results - last 24 hr 10/19/21 04:32: WBC 5.7, RBC 3.07 L, Hgb 8.6 L, Hct 27.1 L, MCV 88.3, MCH 28.0, MCHC 31.7 L, RDW Std Deviation 49.9 H, RDW Coeff of Richie 15.4 H, Plt Count 154, MPV 10.3, Immature Gran % (Auto) 1.400 H, Neut % (Auto) 74.7 H, Lymph % (Auto) 15.2 L, [place]oshone % (Auto) 7.6, Eos % (Auto) 0.9, Baso % (Auto) 0.2, Absolute Neuts (auto) 4.2, Absolute Lymphs (auto) 0.86, Nucleated RBC % 0 10/19/21 04:32: Sodium 135 L, Potassium 4.7, Chloride 106, Carbon Dioxide 22.0, Anion Gap 7, BUN 25 H, Creatinine 1.15, Estim Creat Clear Calc 60.93, Est GFR (MDRD) Af Amer 80, Est GFR (MDRD) Non-Af 66, BUN/Creatinine Ratio 21.7 H, Glucose 85, Calcium 8.3 L, Phosphorus 3.3, Magnesium 2.1, Total Bilirubin 2.80 H, Direct Bilirubin 1.88 H, AST 66 H, ALT 52, Alkaline Phosphatase 398 H, Total Protein 5.8 L, Albumin 1.9 L, Globulin 3.9 Micro: Microbiology 10/16/21 23:20 Nasal Secretion SARS-CoV-2 & FLU Antigen (Rapid) - Final Radiography Diagnostic Testing: Radiology Impression ERCP X-Ray 10/18/21 07:35 IMPRESSION: Significant dilatation of the extrahepatic common bile duct and biliary radicles likely due to an irregular lesion along the distal common bile duct. There also appear to be multiple gallstones within the common bile duct but these could also represent air bubbles if there has been a sphincterotomy No extravasation of contrast outside the lumen of the biliary tree Electronically Signed: Devon Jimenez MD at 15:53 EDT , Gallbladder Ultrasound 10/18/21 08:00 IMPRESSION: Multiple gallstones. Dilated common bile duct. Central intrahepatic ductal dilatation. Electronically Signed: Prashanth Kimbrough MD at 13:15 EDT , Rhythm Strip Rhythm Strip: Sinus Rhythm Rate: 90 Ectopy: None Physical Exam Narrative GENERAL: cooperative HEENT: Atraumatic; EYES; jaundiced NECK; supple, normal thyroid, RESPIRATORY: Diminished to auscultation CARDIOVASCULAR: Regular S1 S2, GI: soft, normoactive bowel sounds, : No Renal angle tenderness; EXTREMITIES: No edema, no clubbing, MUSCULOSKELETAL: no muscle wasting NEURO: Awake; no lateralizing signs. SKIN: No Rash PSYCH; Flat affect Assessment & Plan Assessment/Plan (1) Choledocholithiasis: PLAN: Plan Patient is a 71-year-old gentleman who presented with a 2-week history of nausea vomiting generalized weakness as well as abdominal pain. CT of the abdomen obtained on admission demonstrated 9 mm obstructing lesion in the distal common bile duct, likely calculus, with diffuse intra and extrahepatic biliary dilation and distention of the gallbladder.. Admitted to regular nursing floor with consultation placed to GI 1. Choledocholithiasis ?CT of the abdomen obtained on admission demonstrated 9 mm obstructing lesion in the distal common bile duct, likely calculus, with diffuse intra and extrahepatic biliary dilation and distention of the gallbladder.. Admitted to regular nursing floor with consultation placed to GI plan for patient to undergo ERCP -10/19/2021;Patient underwent ERCP by Dr. Almeida on 10/18/2021. ? Impressions : - The entire main bile duct was dilated, with a stone causing an obstruction. - Choledocholithiasis with an obstruction was found.? Complete removal was ?accomplished by biliary sphincterotomy and balloon extraction. - A biliary sphincterotomy was performed. - The biliary tree was swept. - Common bile duct was successfully dilated. - One temporary stent was placed into the common bile duct. -Patient total bilirubin significantly down following above procedure 2. Mildly abnormal urinalysis ? Patient is on antibiotics 3. Acute renal insufficiency ? Patient creatinine on admission was 1.1 peaked at 1.5 to down to 1.39 as of 10/18/2021 4. Hypertension - Blood pressure controlled, home medications continued with dose adjustment as needed 5. Newly diagnosed Parkinson's disease ? Patient is on Sinemet and continue 6. Dyslipidemia -Patient is on statin therapy, continued at home dose 8. BPH ? Patient is on tamsulosin 9. Anemia - Secondary to chronic disorder monitoring H&H and transfuse if patient becomes symptomatic or hemoglobin falls below 7 10. DVT prophylaxis ? SCDs for now 11. Severe protein-calorie malnutrition in the context of acute illness related to altered GI function and inadequate oral intake as evidenced by 8% wt loss in less than 2 months, reported nausea and vomiting, currently NPO, hypoactive bowel sounds and PO meeting less than 50% estimated nutrition needs prior to admission x past 1-2 months. Recommend: Recommend Transitional diet as medically able with goal of Cardiac diet as tolerated. Consider parenteral nutrition support if unable to advance PO diet in next 24-48 hours. Ensure Clear as diet advanced from NPO. Adjust texture of foods and ONS as needed once diet initiated. 12. Physical deconditioning - Requested for PT OT eval and social and human services assistant to assist with discharge planning Charges/Coding Visit Charges Inpatient E&M: 51625 Subs Hosp L2
[2021-10-19] MEDS: Cholecalciferol (VIT D3) 25 MCG TABLET (1,000 UNITS) 50 MCG PO (08:22)
[2021-10-19] MEDS: Propranolol 40 MG Tablet PO ×2 (08:22→21:53)
[2021-10-19] MEDS: amLODIPine 10 MG Tablet PO (08:22)
[2021-10-19] MEDS: buPROPion (XL) 150 MG TABLET.XL PO (08:22)
[2021-10-19] MEDS: Loratadine 10 MG Tablet PO (08:22)
[2021-10-19] MEDS: Sertraline 100 MG Tablet PO ×2 (08:23→21:53)
--- NOTE | 2021-10-19 14:32 | CASEMGMT ---
VELASQUEZ LEVY in to pt room to discuss outpt therapy. Pt present, pt is agreeable to going to [facility] for therapy. He states he has been there before. Offered to set up appt. Pt states she prefers to set up as she knows their schedule and what other appts they have. Made aware VELASQUEZ LEVY will provide with rx for therapy tomorrow. Pt denies further needs.
--- NOTE | 2021-10-19 19:12 | PN_ITS ---
Subjective Subjective Patient is doing very well. He is up and out of bed and he has been tolerating a diet. Objective Data Objective Data Vital Signs: Vital Signs Temp Pulse Resp BP Pulse Ox O2 Del Method 98.0 F 67 14 138/77 H 97 Room Air 10/19/21 16:15 10/19/21 16:15 10/19/21 16:15 10/19/21 16:15 10/19/21 16:15 10/19/21 16:15 Oxygen Delivery Method Room Air Weight: 218 lb 0.595 oz Body Mass Index (BMI) 30.4 Intake & Output: Intake and Output for Last 24 Hours 10/17/21 10/18/21 10/19/21 23:59 23:59 23:59 Intake Total 2530 / 3080 2833.75 / 2993.75 1520 / 1520 Output Total 1050 / 1300 1175 / 1375 1225 / 1225 Balance 1480 / 1780 1658.75 / 1618.75 295 / 295 Medical Nutrition Assessment Dietitian: Malnutrition Criteria Met Start: 10/17/21 12 :33 Freq: Status: Active Protocol: Document 10/19/21 14:40 RMA (Rec: 10/19/21 14:40 RMA [id number]) Nutrition Malnutrition Evidence of Malnutrition Exists Yes Malnutrition (severe): Acute Illness/Injury Evidenced By Suboptimal Energy Intake ( Severe),Weight Loss (Severe) Clinical Problem Biting/Chewing Difficulty Etiology Difficulty chewing related to impaired dentition Signs/Symptoms as evidenced by need for soft foods, partly edentulous state /poorly fitting upper dentures (not wearing) and lower bridge not in place Status Active Problem Acute Disease or Injury Related Malnutrition Etiology Severe protein-calorie malnutrition in the context of acute illness related to altered GI function and inadequate oral intake Signs/Symptoms as evidenced by 8% wt loss in less than 2 months and PO meeting less than 50% estimated nutrition needs prior to admission x past 1-2 months Status Active Problem Recommendation Dietitian Recommendations/Changes Continue regular diet as ordered for now; cardiac diet restriction as needed. Adjust texture of foods as needed due to pt reported difficulty chewing at times. Will d/c ensure clear and offer ensure compact TID w/ meals instead. Adjust ONS as needed to optimize intake and prevent further wt loss. Lab / Micro Data Result Diagrams: 10/19/21 04:32 10/19/21 04:32 Labs: Laboratory Results - last 24 hr 10/19/21 04:32: WBC 5.7, RBC 3.07 L, Hgb 8.6 L, Hct 27.1 L, MCV 88.3, MCH 28.0, MCHC 31.7 L, RDW Std Deviation 49.9 H, RDW Coeff of Richie 15.4 H, Plt Count 154, MPV 10.3, Immature Gran % (Auto) 1.400 H, Neut % (Auto) 74.7 H, Lymph % (Auto) 15.2 L, [place] % (Auto) 7.6, Eos % (Auto) 0.9, Baso % (Auto) 0.2, Absolute Neuts (auto) 4.2, Absolute Lymphs (auto) 0.86, Nucleated RBC % 0 10/19/21 04:32: Sodium 135 L, Potassium 4.7, Chloride 106, Carbon Dioxide 22.0, Anion Gap 7, BUN 25 H, Creatinine 1.15, Estim Creat Clear Calc 60.93, Est GFR (MDRD) Af Amer 80, Est GFR (MDRD) Non-Af 66, BUN/Creatinine Ratio 21.7 H, Glucose 85, Calcium 8.3 L, Phosphorus 3.3, Magnesium 2.1, Total Bilirubin 2.80 H , Direct Bilirubin 1.88 H, AST 66 H, ALT 52, Alkaline Phosphatase 398 H, Total Protein 5.8 L, Albumin 1.9 L, Globulin 3.9 Micro: Microbiology 10/16/21 23:20 Nasal Secretion SARS-CoV-2 & FLU Antigen (Rapid) - Final Rhythm Strip Rhythm Strip: Sinus Rhythm Rate: 90 Ectopy: None Physical Exam Narrative GENERAL: cooperative HEENT: Atraumatic; EYES; jaundiced NECK; supple, normal thyroid, RESPIRATORY: Diminished to auscultation CARDIOVASCULAR: Regular S1 S2, GI: soft, normoactive bowel sounds, : No Renal angle tenderness; EXTREMITIES: No edema, no clubbing, MUSCULOSKELETAL: no muscle wasting NEURO: Awake; no lateralizing signs. SKIN: No Rash PSYCH; Flat affect Assessment & Plan Assessment/Plan (1) Pancreatitis: PLAN: Stone pancreatitis has resolved status post stone removal and treatment with IV fluids. (2) Biliary calculus with obstruction without cholecystitis: PLAN: Status post ERCP with stone removal, stricture dilation and stent placement. I will start him on ursodiol for the remaining stones in his gallbladder. He may need assessment as an outpatient for elective cholecystectomy. Charges/Coding Visit Charges Inpatient E&M: 21611 Subs Hosp L2
[2021-10-19] MEDS: Atorvastatin Calcium 10 MG Tablet PO (21:52)
[2021-10-19] MEDS: Ursodiol 250 MG Tablet 500 MG PO (21:52)
[2021-10-19] MEDS: Tamsulosin HCl 0.4 MG Capsule PO (21:53)
[2021-10-20 01:56] VITALS: PULSE 58
[2021-10-20 03:30] VITALS: BP 140/72; PULSE 62; RESP 16; TEMP 36.9; O2SAT 96
[2021-10-20 05:35] VITALS: PULSE 54
[2021-10-20 05:51] LABS: Absolute Lymphocyte Count 1.15 X10^3/uL (0.83-4.51); Absolute Neutrophil Count 4.5 X10^3/uL (2.0-7.7); Basophil# 0.04 X10^3/uL; Basophil% 0.6 % (0-1); Eosinophil# 0.08 X10^3/uL; Eosinophils% 1.2 % (0-5); Hematocrit 27.8 % (40-54); Hemoglobin 8.9 g/dL (13.0-16.5); Lymphocyte # 1.15 X10^3/ul (0.83-4.51); Lymphocyte % 17.6 % (19-41); Mean Corpuscular Volume 87.4 fL (80-94); Mean Platelet Vol. 10.2 fl (6.2-12.0); Monocyte# 0.51 X10^3/uL; Monocyte% 7.8 % (0-10); NRBC Flagged by Analyzer 0 % (0-5); Neutrophil # 4.51 X10^3/uL (2.7-7.7); Platelet Count 211 K/mm3 (150-450); RBC Distribution Width CV 15.2 % (11.6-14.6); RBC Distribution Width SD 49.1 fl (35.1-43.9); Red Blood Count 3.18 M/mm3 (4.6-6.2); White Blood Count 6.5 K/mm3 (4.4-11.0)
[2021-10-20 06:22] LABS: Anion Gap 4 (5-15); BUN 23 mg/dL (7-18); BUN/Creat Ratio 21.1 RATIO (10-20); Calcium,Total 8.3 mg/dL (8.5-10.1); Chloride 105 mmol/L (98-107); Creatinine, Serum 1.09 mg/dL (0.70-1.30); EST Glomerular Filtration Rate 70 mL/min (>60); Est Glom Filt Rate - Afr Amer 85 mL/min (>60); Estimated Creatinine Clearance 64.29 ml/min; Glucose 96 mg/dL (74-106); Potassium 4.7 mmol/L (3.5-5.1); Sodium Level 134 mmol/L (136-145)
[2021-10-20] MEDS: CARBIDOPA/LEVODOPA CR 50/200 Tablet PO (06:33)
[2021-10-20] MEDS: Ondansetron 4 MG/2 ML Vial IV (08:48)
[2021-10-20] MEDS: 0.9% Saline Lock 10 ML Syringe IV (08:48)
[2021-10-20] MEDS: Potassium Chloride 40 MEQ in 0.45% Normal Saline 1,000 ML 75 MEQ IV (08:54)
[2021-10-20 09:00] VITALS: BP 138/73; PULSE 59; PULSE 65; RESP 16; TEMP 36.8; O2SAT 97
--- NOTE | 2021-10-20 10:49 | CASEMGMT ---
VELASQUEZ CM into pt room, provided pt and with outpt therapy script at this time. Pt denies further needs.
[2021-10-20] MEDS: Sertraline 100 MG Tablet PO (11:10)
[2021-10-20] MEDS: amLODIPine 10 MG Tablet PO (11:10)
[2021-10-20] MEDS: buPROPion (XL) 150 MG TABLET.XL PO (11:10)
[2021-10-20] MEDS: Loratadine 10 MG Tablet PO (11:10)
[2021-10-20] MEDS: Propranolol 40 MG Tablet PO (11:10)
[2021-10-20] MEDS: Ursodiol 250 MG Tablet 500 MG PO (11:10)
[2021-10-20] MEDS: Cholecalciferol (VIT D3) 25 MCG TABLET (1,000 UNITS) 50 MCG PO (11:10)
--- NOTE | 2021-10-20 11:41 | DCINST_ITS ---
Discharge Instructions Diet Discharge Diet: No restrictions Activity Discharge Activity: Return to Normal Activity Weight Bearing Status: Full weight bearing Follow Up Care Test Results: Test results from this visit will be discussed in further detail at your follow- up appointment, if applicable. Discharge Plan Admission Admit Date/Time: 10/17/21 02:38 Primary Reason for Your Visit: bile duct stone Attending Provider: Lele Zaidi Primary Care Provider: Luigi Kirk Consulting Providers: Taj Almeida ; Sharan Toribio ; Becki Persaud ; Stanley Ayers Discharge Orders/Prescriptions Prescriptions: New ursodiol 250 mg Tablet 500 mg PO BID Qty: 60 0RF Continued amlodipine 5 mg tablet 10 mg PO DAILY loratadine 10 mg capsule 10 mg PO DAILY propranolol 40 mg tablet 40 mg PO BID naproxen 500 mg tablet 500 mg PO BID tamsulosin 0.4 mg capsule 0.4 mg PO QHS atorvastatin 10 mg tablet 10 mg PO QHS albuterol sulfate [Ventolin HFA] 90 mcg/actuation HFA aerosol inhaler 2 puff inhalation Q4H PRN (Reason: shortness of breath or wheezing) Qty: 18 6RF (DME) spacer See Rx Instructions .ROUTE .MEDSUPPLY Qty: 1 0RF Rx Instructions: As directed sertraline 100 MG tablet 100 mg PO BID Label Comments: mental health bupropion HCl 150 MG tablet extended release 24 hr 150 mg PO DAILY Label Comments: depression cholecalciferol (vitamin D3) [Vitamin D3] 1,000 UNIT capsule 2,000 unit PO DAILY Label Comments: supplement carbidopa-levodopa 50-200 mg tablet extended release 1 tab PO BID Label Comments: TAKE 1 TABLET BY MOUTH TWICE A DAY losartan 100 MG tablet 100 mg PO DAILY Referrals / Follow Up: Luigi Kirk MD [Primary Care Provider] - Within 1 Month Taj Almeida DO [Med Staff - Active Staff] - See Referral Note (in two weeks- call to schedule appointment) Disposition Disposition (needs filled in before D/C Order can be placed): Home, Self Care
--- NOTE | 2021-10-20 12:36 | PCM.DC.SUM ---
Providers Date of Admission: 10/17/21 Date of Discharge: 10/20/21 Primary Care Physician: Dr. Luigi Kirk MD Consultations 10/17/21 03:38 Consult: Gastroenterology Routine Consulting Provider: Juan PabloTaj Reason for Consult: Choledocholithiasis EMERGENT Consult: No MD Notified: Yes Date Notified: 10/17/21 Time Notified: 06:31 Method of Notification: Text Reason For Visit: CHOLEDOCHOLITHIASIS Diagnosis Discharge Diagnosis (1) Pancreatitis: Status: Acute Code(s): K85.90 - Acute pancreatitis without necrosis or infection, unspecified (2) Biliary calculus with obstruction without cholecystitis: Status: Acute Code(s): K80.71 - Calculus of gallbladder and bile duct without cholecystitis with obstruction Plan 1. Choledocholithiasis #2 dehydration #3 hypertension #4 Parkinson's disease #5 severe protein and caloric malnutrition in the context of acute illness related to altered GI function as evidenced by a percent weight loss in less than 2 months and p.o. intake meeting less than 50% of estimated nutritional needs prior to admission x1 to 2 months-transitional diet was recommended with a goal of cardiac diet as tolerated, Ensure clear would be added as diet advanced. #6 multiple gallstones #7 hypokalemia Medications at Discharge Home Medications bupropion HCl 150 mg 24 hr tablet, extended release 150 mg PO DAILY depression 02/26/16 cholecalciferol (vitamin D3) 25 mcg (1,000 unit) capsule (Vitamin D3) 2,000 unit PO DAILY supplement 02/26/16 sertraline 100 mg tablet 100 mg PO BID depression 02/26/16 amlodipine 5 mg tablet 10 mg PO DAILY HTN 01/05/21 atorvastatin 10 mg tablet 10 mg PO QHS cholesterol 01/05/21 loratadine 10 mg capsule 10 mg PO DAILY allergies 01/05/21 naproxen 500 mg tablet 500 mg PO BID pain 01/05/21 propranolol 40 mg tablet 40 mg PO BID HTN 01/05/21 tamsulosin 0.4 mg capsule 0.4 mg PO QHS BPH 01/05/21 albuterol sulfate 90 mcg/actuation aerosol inhaler (Ventolin HFA) 2 puff inhalation Q4H PRN shortness of breath or wheezing #18 grams 02/18/21 spacer #1 ea 02/18/21 carbidopa ER 50 mg-levodopa 200 mg tablet,extended release 1 tab PO BID parkinson's 10/17/21 losartan 100 mg tablet 100 mg PO DAILY HTN 10/17/21 ursodiol 250 mg tablet 500 mg PO BID #60 tabs 10/20/21 Hospital Course Operations None Procedures - (ERCP with stent placement into the common bile duct, biliary sphincterotomy, and removal of common bile duct stone) Summary of Care Provided Minutes Spent on Discharge: 32 Hospital Course: This 71-year-old white male was seen in the emergency room at [facility] with chief complaint of generalized weakness. Patient also had some vomiting and minor supra umbilical abdominal pain which is intermittent. Labs obtained in the emergency room showed an elevated white blood cell count, there is mild dehydration noted on the chemistry panel as well as low potassium and elevated liver enzymes. CT of the abdomen was obtained it showed what appeared to be a stone in the common bile duct causing obstruction. Patient was admitted to [place] [address], he was given IV fluids and potassium replacement, and seen in consultation by gastroenterology, he was taken for an ERCP and underwent a sphincterotomy with insertion of stent and common bile duct and removal of stone in common bile duct. Patient tolerated the procedure well and there were no complications. On 10/20/2021, patient was seen and examined: On examination he appeared in good health and spirits. Vital signs as documented. Skin warm and dry and without overt rashes. Neck without JVD, neck was supple, trachea midline, thyroid was normal. Lungs clear bilaterally, normal air movement was noted. Heart exam notable for regular rhythm, normal sounds and absence of murmurs, rubs or gallops. Abdomen unremarkable and without evidence of organomegaly, masses, or abdominal aortic enlargement. Bowel sounds are present, abdomen is not distended. Extremities nonedematous, no cyanosis was noted, no clubbing was noted. Neuro: Cranial nerves II through XII are grossly intact, no focal motor deficits were noted, sensation to light touch and pinprick intact, motor exam 5/5 throughout. Psych: Patient is alert and oriented x3, he does not appear anxious or depressed, he does not appear agitated. Patient was discharged home in stable condition on 10/20/2021. Medical Records Data Medical Nutrition Assessment Dietitian: Malnutrition Criteria Met Start: 10/17/21 12:33 Freq: Status: Active Protocol: Document 10/19/21 14:40 RMA (Rec: 10/19/21 14:40 RMA [id number]) Nutrition Malnutrition Evidence of Malnutrition Exists Yes Malnutrition (severe): Acute Illness/Injury Evidenced By Suboptimal Energy Intake ( Severe),Weight Loss (Severe) Clinical Problem Biting/Chewing Difficulty Etiology Difficulty chewing related to impaired dentition Signs/Symptoms as evidenced by need for soft foods, partly edentulous state /poorly fitting upper dentures (not wearing) and lower bridge not in place Status Active Problem Acute Disease or Injury Related Malnutrition Etiology Severe protein-calorie malnutrition in the context of acute illness related to altered GI function and inadequate oral intake Signs/Symptoms as evidenced by 8% wt loss in less than 2 months and PO meeting less than 50% estimated nutrition needs prior to admission x past 1-2 months Status Active Problem Recommendation Dietitian Recommendations/Changes Continue regular diet as ordered for now; cardiac diet restriction as needed. Adjust texture of foods as needed due to pt reported difficulty chewing at times. Will d/c ensure clear and offer ensure compact TID w/ meals instead. Adjust ONS as needed to optimize intake and prevent further wt loss. Weight / BMI Weight Weight: 98.9 kg Body Mass Index (BMI) 30.4 ABG / Lab / Microbiology Data Result Diagrams: 10/20/21 04:33 10/20/21 04:33 Laboratory: Laboratory Results - last 24 hr 10/20/21 04:33: WBC 6.5, RBC 3.18 L, Hgb 8.9 L, Hct 27.8 L, MCV 87.4, MCH 28.0, MCHC 32.0, RDW Std Deviation 49.1 H, RDW Coeff of Richie 15.2 H, Plt Count 211, MPV 10.2, Immature Gran % (Auto) 3.800 H, Neut % (Auto) 69.0, Lymph % (Auto) 17.6 L, [place] % (Auto) 7.8, Eos % (Auto) 1.2, Baso % (Auto) 0.6, Absolute Neuts (auto) 4.5, Absolute Lymphs (auto) 1.15, Nucleated RBC % 0 10/20/21 04:33: Sodium 134 L, Potassium 4.7, Chloride 105, Carbon Dioxide 25.0, Anion Gap 4 L, BUN 23 H, Creatinine 1.09, Estim Creat Clear Calc 64.29, Est GFR (MDRD) Af Amer 85, Est GFR (MDRD) Non-Af 70, BUN/Creatinine Ratio 21.1 H, Glucose 96, Calcium 8.3 L Microbiology: Microbiology 10/16/21 23:20 Nasal Secretion SARS-CoV-2 & FLU Antigen (Rapid) - Final D/C Instructions Discharge Diet: No restrictions Weight Bearing Status: Full weight bearing Meaningful Use Info Meaningful Use Diagnoses (Choose all that apply): None applicable Discharge Plan Admission Admit Date/Time: 10/17/21 02:38 Primary Reason for Your Visit: bile duct stone Attending Provider: Lele Zaidi Primary Care Provider: Luigi Kirk Consulting Providers: Taj Almeida ; Sharan Toribio ; Becki Persaud ; Stanley Ayers Discharge Orders/Prescriptions Prescriptions: New ursodiol 250 mg Tablet 500 mg PO BID Qty: 60 0RF Continued amlodipine 5 mg tablet 10 mg PO DAILY loratadine 10 mg capsule 10 mg PO DAILY propranolol 40 mg tablet 40 mg PO BID naproxen 500 mg tablet 500 mg PO BID tamsulosin 0.4 mg capsule 0.4 mg PO QHS atorvastatin 10 mg tablet 10 mg PO QHS albuterol sulfate [Ventolin HFA] 90 mcg/actuation HFA aerosol inhaler 2 puff inhalation Q4H PRN (Reason: shortness of breath or wheezing) Qty: 18 6RF (DME) spacer See Rx Instructions .ROUTE .MEDSUPPLY Qty: 1 0RF Rx Instructions: As directed sertraline 100 MG tablet 100 mg PO BID Label Comments: mental health bupropion HCl 150 MG tablet extended release 24 hr 150 mg PO DAILY Label Comments: depression cholecalciferol (vitamin D3) [Vitamin D3] 1,000 UNIT capsule 2,000 unit PO DAILY Label Comments: supplement carbidopa-levodopa 50-200 mg tablet extended release 1 tab PO BID Label Comments: TAKE 1 TABLET BY MOUTH TWICE A DAY losartan 100 MG tablet 100 mg PO DAILY Referrals / Follow Up: Luigi Kirk MD [Primary Care Provider] - Within 1 Month Taj Almeida DO [Med Staff - Active Staff] - See Referral Note (in two weeks-call to schedule appointment) Disposition Disposition (needs filled in before D/C Order can be placed): Home, Self Care Charges/Coding Visit Charges Inpatient E&M: 28687 Disch Hosp
--- NOTE | 2021-10-20 14:27 | PHA.DC.MC ---
Pharmacy Service has performed discharge medication reconciliation and counseling for this patient. 1. URSODIOL 500MG PO BID The patient's discharge medication list was reviewed for discrepancies and discrepancies were resolved. Home Medications bupropion HCl 150 mg 24 hr tablet, extended release 150 mg PO DAILY depression 02/26/16 cholecalciferol (vitamin D3) 25 mcg (1,000 unit) capsule (Vitamin D3) 2,000 unit PO DAILY supplement 02/26/16 sertraline 100 mg tablet 100 mg PO BID depression 02/26/16 amlodipine 5 mg tablet 10 mg PO DAILY HTN 01/05/21 atorvastatin 10 mg tablet 10 mg PO QHS cholesterol 01/05/21 loratadine 10 mg capsule 10 mg PO DAILY allergies 01/05/21 naproxen 500 mg tablet 500 mg PO BID pain 01/05/21 propranolol 40 mg tablet 40 mg PO BID HTN 01/05/21 tamsulosin 0.4 mg capsule 0.4 mg PO QHS BPH 01/05/21 albuterol sulfate 90 mcg/actuation aerosol inhaler (Ventolin HFA) 2 puff inhalation Q4H PRN shortness of breath or wheezing #18 grams 02/18/21 spacer #1 ea 02/18/21 carbidopa ER 50 mg-levodopa 200 mg tablet,extended release 1 tab PO BID parkinson's 10/17/21 losartan 100 mg tablet 100 mg PO DAILY HTN 10/17/21 ursodiol 250 mg tablet 500 mg PO BID #60 tabs 10/20/21 The patient was counseled on the following discharge medications and changes in medications for homegoing were reviewed. The Reason for Use, instructions for use, and potential side effects were reviewed for all new medications. The patient's questions regarding all of their medications were answered. The patient was able to verbally demonstrate an understanding of their discharge medications. Patient counseled by pharmacy clinical specialistTomas.
== END 2021-10-20 14:40 | disposition home or self-care (01) | DRG 444 ==
LOC: ED 10-17 02:44 → MS3 10-17 02:50
PROVIDERS: Internal Medicine; Internal Medicine Gastroenterology; Admitting Provider Hospitalist; Emergency Provider Emergency Medicine; PCP Family Medicine; Visit Provider Internal Medicine
PROC: 0FC98ZZ Extirpation of Matter from Common Bile Duct, Via Natural or Artificial Opening Endoscopic (ICD-10-PCS; CPT 43260; principal; 2021-10-18 12:55)
DX: K80.71 Calculus of gallbladder and bile duct without cholecystitis with obstruction (principal); E43 Unspecified severe protein-calorie malnutrition; K85.10 Biliary acute pancreatitis without necrosis or infection; E83.51 Hypocalcemia; E88.09 Other disorders of plasma-protein metabolism, not elsewhere classified; D63.8 Anemia in other chronic diseases classified elsewhere; G20 Parkinson's disease; K75.81 Nonalcoholic steatohepatitis (NASH); E86.0 Dehydration; E78.5 Hyperlipidemia, unspecified; I10 Essential (primary) hypertension; K21.9 Gastro-esophageal reflux disease without esophagitis; G47.33 Obstructive sleep apnea (adult) (pediatric); I44.4 Left anterior fascicular block; E87.6 Hypokalemia; F32.A Depression, unspecified; Z79.899 Other long term (current) drug therapy; R53.81 Other malaise; R82.90 Unspecified abnormal findings in urine; Z68.30 Body mass index [BMI] 30.0-30.9, adult; N28.9 Disorder of kidney and ureter, unspecified; N40.0 Benign prostatic hyperplasia without lower urinary tract symptoms
CPT/HCPCS: 36415; 71046; 74177; 74328; 76000; 76705; 80048; 80053; 80076; 81001; 83690; 83735; 84100; 84484; 85025; 87428; 93005; 97162; 97166; 97530; 97535; 97802; 99285; J2185; Q9967; A4216; J2405

== ENCOUNTER → 2021-11-02 | Outpatient (CLI) | payer MEDICARE, SELFPAY ==
[2021-11-02 18:11] LABS: Absolute Lymphocyte Count 1.41 X10^3/uL (0.83-4.51); Absolute Neutrophil Count 3.5 X10^3/uL (2.0-7.7); Basophil# 0.04 X10^3/uL; Basophil% 0.7 % (0-1); Eosinophil# 0.14 X10^3/uL; Eosinophils% 2.6 % (0-5); Hemoglobin 10.4 g/dL (13.0-16.5); Lymphocyte # 1.41 X10^3/ul (0.83-4.51); Lymphocyte % 25.7 % (19-41); Mean Corp Hgb Conc 31.5 g/dL (32-36); Mean Corpuscular Hgb 28.6 pg (27.0-32.0); Mean Corpuscular Volume 90.7 fL (80-94); Mean Platelet Vol. 9.7 fl (6.2-12.0); Monocyte# 0.39 X10^3/uL; Monocyte% 7.1 % (0-10); NRBC Flagged by Analyzer 0 % (0-5); Neutrophil # 3.46 X10^3/uL (2.7-7.7); Platelet Count 295 K/mm3 (150-450); RBC Distribution Width CV 15.2 % (11.6-14.6); RBC Distribution Width SD 50.3 fl (35.1-43.9); Red Blood Count 3.64 M/mm3 (4.6-6.2); White Blood Count 5.5 K/mm3 (4.4-11.0)
[2021-11-02 18:56] LABS: ALB/GLOB Ratio 0.8 RATIO (0.9-2.4); AST(SGOT) 16 U/L (15-37); Alanine Aminotransfer ALT/SGPT 11 U/L (16-61); Albumin, Serum 3.2 g/dL (3.2-5.0); Alkaline Phosphatase 119 U/L (45-117); Anion Gap 5 (5-15); BUN 31 mg/dL (7-18); BUN/Creat Ratio 22.5 RATIO (10-20); Calcium,Total 9.3 mg/dL (8.5-10.1); Chloride 107 mmol/L (98-107); Creatinine, Serum 1.38 mg/dL (0.70-1.30); EST Glomerular Filtration Rate 54 mL/min (>60); Est Glom Filt Rate - Afr Amer 65 mL/min (>60); Globulin 3.8 g/dL (2.2-4.2); Glucose 99 mg/dL (74-106); Lipase 290 U/L (73-393); Potassium 4.3 mmol/L (3.5-5.1); Sodium Level 140 mmol/L (136-145)
[2021-11-03 10:16] LABS: Ferritin 46 ng/mL (26-388); Iron 37 ug/dL (65-175)
[2021-11-03 14:41] LABS: Platelet Count 294 K/mm3 (150-450); RET-HE 28.7 pg (30-35); Reticulocyte Count 2.15 % (0.5-1.5)
== END | disposition home or self-care (01) ==
LOC: MFPLAB 16:23
PROVIDERS: PCP Family Medicine; Visit Provider Family Medicine
DX: K85.90 Acute pancreatitis without necrosis or infection, unspecified (principal); D64.9 Anemia, unspecified
CPT/HCPCS: 36415; 80053; 82728; 83540; 83690; 85025; 85045

== ENCOUNTER 2021-11-23 11:22 | Day surgery (SDC) | payer MEDICARE, SELFPAY ==
[2021-11-23] VITALS (7 sets, daily range): BP systolic 111–146; BP diastolic 66–84; PULSE 51–72; RESP 16; TEMP 36.1–36.6; O2SAT 92–98; BMI 30.7
--- NOTE | 2021-11-23 11:34 | EKG12_ITS ---
Test Reason : PRE OP Blood Pressure : / mmHG Vent. Rate : 059 BPM Atrial Rate : 059 BPM P-R Int : 170 ms QRS Dur : 098 ms QT Int : 440 ms P-R-T Axes : 049 -26 033 degrees QTc Int : 435 ms Sinus bradycardia Otherwise normal ECG When compared with ECG of 16-OCT-2021 22:50, Vent. rate has decreased BY 31 BPM Confirmed by STEVE STERLING, NYDIA ([id number]), desk editor ALIA BECKWITH ([id number]) on 11/25/2021 1:02:53 PM Referred By: Shalini Austin Confirmed By:SANTANA WILSON MD
--- NOTE | 2021-11-23 11:39 | PCM.HP.BLA ---
History and Physical Date of Admission: 11/23/21 Date of Service:? 11/09/21 MR#: [id number] Acct: [id number] Name:EVERETTE BAKER Rep #: [id number] : 1950 ? ? Provider: Dr. Shalini Austin MD Age/Sex:? 71/M ? ? Location: [facility] Status: Signed Intake Vital Signs ? 10/19/2213:30 11/09/2208:55 Height 5 ft 11 in 5 ft 11 in Weight: ? 213 lb BMI ? 29.7 BP ? 119/73 Blood Pressure Location ? Rt brachial Position ? Sitting Respiration ? 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 Is patient in pain?: No Allergies Penicillins Allergy (Verified 11/09/21 09:56) Hives Medications bupropion HCl 150 mg 24 hr tablet, extended release 150 mg PO DAILY depression 02/26/16 [History Confirmed 11/09/21] cholecalciferol (vitamin D3) 25 mcg (1,000 unit) capsule (Vitamin D3) 2,000 unit PO DAILY supplement 02/26/16 [History Confirmed 11/09/21] sertraline 100 mg tablet 100 mg PO BID depression 02/26/16 [History Confirmed 11/09/21] amlodipine 5 mg tablet 10 mg PO DAILY HTN 01/05/21 [History Confirmed 11/09/21] atorvastatin 10 mg tablet 10 mg PO QHS cholesterol 01/05/21 [History Confirmed 11/09/21] loratadine 10 mg capsule 10 mg PO DAILY allergies 01/05/21 [History Confirmed 11/09/21] naproxen 500 mg tablet 500 mg PO BID pain 01/05/21 [History Confirmed 11/09/21] propranolol 40 mg tablet 40 mg PO BID HTN 01/05/21 [History Confirmed 11/09/21] tamsulosin 0.4 mg capsule 0.4 mg PO QHS BPH 01/05/21 [History Confirmed 11/09/21] albuterol sulfate 90 mcg/actuation aerosol inhaler (Ventolin HFA) 2 puff inhalation Q4H PRN shortness of breath or wheezing #18 grams 02/18/21 [Rx Confirmed 11/09/21] spacer #1 ea 02/18/21 [Rx Confirmed 11/09/21] carbidopa ER 50 mg-levodopa 200 mg tablet,extended release 1 tab PO BID parkinson's 10/17/21 [History Confirmed 11/09/21] losartan 100 mg tablet 100 mg PO DAILY HTN 10/17/21 [History Confirmed 11/09/21] ursodiol 250 mg tablet 500 mg PO BID #120 tabs 11/05/21 [Rx Confirmed 11/09/21] PFSH Medical History? Choledocholithiasis Dehydration Depression GERD (gastroesophageal reflux disease) Hyperlipidemia Hypertension Hypokalemia due to excessive gastrointestinal loss of potassium Nonalcoholic steatohepatitis Normochromic normocytic anemia MARK (obstructive sleep apnea) Parkinson disease Vomiting Surgical History?(Updated 11/09/21 @ 13:[address] Shalini Austin MD) H/O oral surgery History of ERCP Family History? Other Cancer Social History? Smoking Status:? Never smoker alcohol intake:? never substance use type:? does not use what type of physical activity do you participate in:? none HPI HPI HPI: 71-year-old male presenting due to gallstones.? Patient was admitted to the hospital in mid to late September due to choledocholithiasis.? Patient underwent ERCP and stone removal and stent placement but his gallbladder still in place with a couple of about [address] Patient is currently on ursodiol.? Patient states that his previous epigastric pain resolved after having the stone removed.? Patient denies any abdominal pain/nausea/vomiting/reflux.? Patient has been having a more recent issue with anemia as in August it was currently it is 10 has gotten as low as 9?patient has had some weakness associated likely with his anemia.? Patient is currently taking iron.? Patient denies any bleeding per stool as he states his stools have been brown denies any black or red stools.? Patient's last colonoscopy was 3 years ago and was negative.? Patient does state in this amount of time he has had decreased appetite which may be has been increasing.? States he may have lost about 30 pounds with all this going on I believe he probably had more symptoms initially from that stone or gallbladder prior to the hospitalization as well.? Patient has bowel movements every other day.? Patient was also recently diagnosed with likely Parkinson's and is on carbidopa- levodopa. ROS General General: Yes weight change and fatigue; No appetite, colon cancer, breast cancer or weakness HEENT HEENT: No difficulty swallowing, eye injury, eye surgery, swollen glands or hoarseness Endo Endocrine: No thyroid disease, diabetes mellitus, thyroid cancer, Hair loss, heat intolerance or cold intolerance Skin Skin: No rash or changing moles Breast Breast: No left breast lump, right breast lump, nipple discharge, breast pain, abnormal mammogram, abnormal US or breast enlargement Musc Musculoskeletal: Yes back problems, arthritis and rheumatoid arthritis; No gout or joint pain Cardio Cardiovascular: Yes high blood pressure; No murmur, pacemaker, heart disease, atrial fibrillation, heart attack, heart stent, palpitations, shortness of breat with exertion or chest pain Psych Psychiatric: Yes depression; No anxiety or hearing voices Resp Respiratory: Yes shortness of breath, No sleep apnea, No cough, No COPD, No asthma, No emphysema and No wheezing Gastro Gastrointestinal: Yes abdominal pain, No nausea or vomiting, No diarrhea, Yes constipation, No blood in stool, Yes acid reflux, No hemorrhoids, No ulcers, Yes gallbladder problem and No black,tarry stools Caden Hematologic: No blood thinners, No blood disorders, No bleeding, Yes anemia and No blood clots Neuro Neurologic: No system reviewed and no additional complaints, except as documented, No as per HPI, No abnormal gait, No abnormal hearing, No abnormal movements, No abnormal speech, No behavioral changes, No burning sensations, No confusion, No convulsions, No disequilibrium, No dizziness, No localized weakness, No frequent falls, No headache(s), No lack of coordination, No loss of vision, No memory loss, No numbness, No other visual disturbances, No radicular pain, No restless legs, No sensory deficit, No syncope, No tingling, No tremor(s), No weakness and No other Exam Const General: cooperative, healthy appearing and no acute distress HENMT Head: normal to inspection Resp Effort & Inspection: normal respiratory effort Cardio Rate: regular rate GI Inspection: non-distended Palpation: soft, no guarding, hernia umbilical (Incarcerated small) and nontender Skin General: no rashes or lesions noted Neuro General: patient oriented x3 Extrem General: no clubbing, cyanosis or edema Psych Affect: normal affect Assessment and Plan Assessment and Plan (1) Cholelithiasis: ?Status:?Acute (2) Choledocholithiasis: ?Status:?Acute (3) History of ERCP: ?Status:?Acute ?Comment: Stent placement Plan Reviewed CT, ultrasound and ERCP personally and with the patient.? Did caution patient to avoid fatty or greasy foods until surgery. Reviewed the anatomy with the patient and discussed the procedure: laparoscopic cholecystectomy with possible cholangiograms, possible open. Review risks including but not limited to bleeding, infection, hernia, bile leak, retained gallstones requiring another procedure ERCP- Endoscopic Retrograde Cholangiopancreatography, injury to another organ (bile ducts, common bile duct, small bowel, etc.) and conversion to an open procedure. All questions were answered. Shalini Austin M.D. Pager: [phone] [facility] [address] [place] [address], [address] [place] [address] Office: [phone] Coding Level of Care Code Off vis,new,level 4 Diagnoses Cholelithiasis? K80.20 Choledocholithiasis? K80.50 History of ERCP? Z98.890 11/11/21 0842 <Electronically signed by Shalini Austin MD> Date Shalini Austin MD
--- NOTE | 2021-11-23 12:00 | RAD_ITS ---
STUDY: INTRAOPERATIVE CHOLANGIOGRAM. REASON FOR EXAM: Male, 71 years old. PAIN, GALLSTONES FLUOROSCOPY TIME (if supplied): ( 12.4 seconds ) minutes/seconds. A cine loop of 70 images was submitted. TECHNIQUE: An intraoperative cholangiogram was performed by the surgeon. Imaging was submitted. COMPARISON: None. FINDINGS: There is opacification of the common bile duct. There is mild dilatation of the common bile duct. No intraluminal filling defect is seen. There is free flow of contrast into the duodenum. RAD/Cholangiogram/ O R,Initial IMPRESSION: Mildly dilated common bile duct. No intraluminal filling defect is seen. Free flow of contrast is seen in the duodenum. Electronically Signed: Prashanth Kimbrough MD at 15:15 EDT ,
[2021-11-23] MEDS: Ciprofloxacin 400 MG/200 ML BAG 200 MG IV (12:05)
[2021-11-23] MEDS: Lactated Ringers 1,000 ML 15 ML IV ×2 (12:05→15:58)
--- NOTE | 2021-11-23 13:00 | GALL_PTH ---
PATIENT: EVERETTE POLANCO LOC: [facility] U#:[id number] AGE/SX: 71/M ROOM: RE11/23/[address]: Dr. Shalini Austin MD : 1950 BED: DIS: 11/23/2021 SPEC #: [id number] RECD: 11/24/21 12:38 STATUS: KEVIN ZOE #: [id number] ENRIQUE: 11/23/21 13:[address]: Shalini Austin DEPT: SURGICAL PATHOLOGY RECD BY: Adenike Honeycutt ENTERED: 11/25/21 08:20 SP TYPE: ZAK MCCORMACK DR: Dr. Bala Kirk MD Tissues: Gallbladder, NOS Procedures: Surgery Specimen Level III HEADER OPERATION: Laparoscopic cholecystectomy with IOC PRE-OP DIAGNOSIS: Cholelithiasis and choledocholithiasis TISSUE SUBMITTED: Gallbladder MICROSCOPIC DIAGNOSIS Gallbladder, cholecystectomy: Chronic cholecystitis and cholelithiasis. Benign pericystic lymph node. AM:david 11/26/2021 MICROSCOPIC DESCRIPTION Slides are reviewed. GROSS DESCRIPTION Received is one container labeled with the patient's name and designated gallbladder. The specimen consists of a gallbladder measuring 10.5 cm in length and up to 3.5 cm in diameter. The external surface is pink-butler, smooth and glistening for the most part. Focally it is granular, hemorrhagic and contains cautery artifact. The gallbladder contains green-yellow mucoid bile, sludge material and multiple brownish-black stones and stone fragments measuring in aggregate 2.5 x 2 x 0.7 cm and 0.1 to 1 cm in greatest dimension. The mucosa is bile-stained and without any mass lesions. The gallbladder wall measures up to 0.2 cm in thickness. Also present close to the cystic duct an ovoid nodule, a possible lymph node, measuring 1 cm in greatest dimension. Architectural Draftsperson sections from the gallbladder and the cystic duct including entire possible lymph node are submitted in one cassette. / SJ:david 11/25/2021 TC:3 CPT: 11340
[2021-11-23] MEDS: metroNIDAZOLE 500 MG/100 ML BAG 100 MG IV (13:24)
--- NOTE | 2021-11-23 14:36 | OP.PCM_ITS ---
Report of Operation Date of Procedure: 11/23/21 Pre-Operative Diagnosis: Cholelithiasis, chronic cholecystitis Post-Operative Diagnosis: Same Surgery/Procedure Performed:: Laparoscopic cholecystectomy with cholangiograms Surgeon: Shalini Austin program project manager: Sandy Duong Type of Anesthesia: General/Supplemental Anesthesiologist: Srikanth Riggins Special Medications: Cipro 400 mg IV x1, Flagyl 500 mg IV x1 Specimen's removed: Gallbladder and stones Estimated Blood Loss (mL): < 10 cc Description of Procedure: Indications: this is a 71 year-old male who developed abdominal pain/nausea/vomiting and on workup was found to have choledocholithiasis status post ERCP last month, cholelithiasis, normal liver functions currently. Laparoscopic cholecystectomy was elected. Description procedure: The patient was placed on operating table in supine position. A timeout was completed verifying correct patient, procedure, site, position and special equipment prior to beginning procedure. General Anesthesia was induced. The abdomen was prepped and draped in usual sterile f ashion. An incision was made in the natural skin line above the umbilicus. The fascia was elevated and incised. The peritoneum was elevated and incised. Entry into the peritoneum was confirmed visually and no bowel was noted in the vicinity of the incision. Knox trocar was placed. The abdomen was insufflated with carbon dioxide to a pressure of 12-15 mmHg. Patient tolerated insufflation well. The laparoscope was then inserted and abdomen inspected. No injuries from initial trocar placement were noted. Additional trochars were then inserted in the following locations 5 mm trocar in the epigastrium and 2 more 5 mm trochars along the right costal margin. The abdomen was inspected no abnormalities were found. The table is placed in reverse Trendelenburg position with the right side up. The dome of the gallbladder was grasped with atraumatic grasper passed through the lateral port and retracted over the dome of the liver. Infundibulum was then grasped with atraumatic grasper through the midclavicular port and retracted to the right lower quadrant. This maneuver exposed Calot's triangle. The peritoneum overlying the gallbladder infundibulum was then incised and cystic duct and artery identified and circumferentially dissected. Downing catheter was used for cholangiograms. The cholangiogram showed good filling of the common bile duct into the duodenum with no filling defects, good filling of the right and left bile ducts as well. The cystic duct and artery were then doubly clipped and divided close to the gallbladder. The gallbladder then dissected from its peritoneal attachments by electrocautery, small amount bile leakage from the needle site for the cholangiograms which was suctioned. Hemostasis was checked and the gallbladder and contained stones were removed using the endoscopic retrieval bag through the umbilical port. The gallbladder is passed off table as specimen. The gallbladder fossa was irrigated with saline and hemostasis obtained. There is no evidence of bleeding from the gallbladder fossa or cystic artery leakage of bile from the cystic duct stump. Secondary trochars removed under direct vision. No bleeding was noted the troc ar sites. The laparoscope was withdrawn and umbilical trocar removed. The abdomen was allowed to collapse. The fascia of the 12 mm trocar was closed with a [id number] 0 Vicryl suture. The skin was closed with sutures of 4-0 Monocryl and Steri-Strips. The patient was extubated. The patient tolerated procedure well and was taken to the postanesthesia care unit in stable condition. Complications none
--- NOTE | 2021-11-23 14:39 | DCINST_ITS ---
Discharge Instructions Diet Discharge Diet: Light diet - advance as tolerated Activity Discharge Activity: May Not Drive (while taking narcotic pain medications.) May shower in (days): 1 Lifting Restrictions: no lifting >20 lbs x 2 wks, no strenuous exercise for 4 wks Dressing / Incision Call your doctor if your incision/area has: Continuous Slow Oozing, Sudden Increased Bleeding, Increased Pain/ Swelling, Increased Redness, Foul Smelling Discharge and Swelling at the incision site Call your doctor if you observe: Fever of 101 or Higher Remove Dressing in: 2 days Cleanse incision/area with: Soap & Water Additional Dressing/Incision Instructions:: Steri-Strips will fall off in 7 to 10 days, if they do not fall off okay to remove after 10 days. Follow Up Care Please Follow Up With: Shalini Austin MD When: Call the office for a follow-up appointment 2 weeks; after 5 PM and on the weekends call [phone] with any concerns. Test Results: Test results from this visit will be discussed in further detail at your follow- up appointment, if applicable. Discharge Plan Admission Attending Provider: Shalini Austin Primary Care Provider: Luigi Kirk Discharge Orders/Prescriptions Prescriptions: New hydrocodone-acetaminophen 5-325 mg tablet 1 tab PO Q6H PRN (Reason: pain) 3 Days Qty: 10 0RF Continued amlodipine 5 mg tablet 10 mg PO DAILY loratadine 10 mg capsule 10 mg PO DAILY propranolol 40 mg tablet 40 mg PO BID naproxen 500 mg tablet 500 mg PO BID tamsulosin 0.4 mg capsule 0.4 mg PO QHS atorvastatin 10 mg tablet 10 mg PO QHS (DME) spacer See Rx Instructions .ROUTE .MEDSUPPLY Qty: 1 0RF Rx Instructions: As directed sertraline 100 MG tablet 100 mg PO BID Label Comments: mental health bupropion HCl 150 MG tablet extended release 24 hr 150 mg PO DAILY Label Comments: depression cholecalciferol (vitamin D3) [Vitamin D3] 1,000 UNIT capsule 2,000 unit PO DAILY Label Comments: supplement carbidopa-levodopa 50-200 mg tablet extended release 1 tab PO DAILY Label Comments: TAKE 1 TABLET BY MOUTH TWICE A DAY losartan 100 MG tablet 100 mg PO DAILY ascorbic acid (vitamin C) [Vitamin C] 500 mg Tablet 500 mg PO DAILY ferrous sulfate 325 mg (65 mg iron) Tablet 325 mg PO DAILY Referrals / Follow Up: Luigi Kirk MD [Primary Care Provider] - Disposition Disposition (needs filled in before D/C Order can be placed): Home, Self Care
[2021-11-23] MEDS: HYDROcodone Bitartrate/Apap 5/325 Tablet PO (16:22)
--- NOTE | 2021-11-23 18:09 | SUR.PHASEII ---
pt unable to urinate. 400 ML scanned on bladder scanner. Per Dr Sams, long catheter and send home. pt to remove morning at 0700, if can't urinate by 1200, call office.
== END 2021-11-23 18:31 | disposition home or self-care (01) ==
LOC: SDC 11:26 → AC 11:27
PROVIDERS: PCP Family Medicine; Referring Provider Surgery; Visit Provider Surgery
PROC: (CPT 47610; principal; 2021-11-23 12:40)
DX: K80.64 Calculus of gallbladder and bile duct with chronic cholecystitis without obstruction (principal); G47.33 Obstructive sleep apnea (adult) (pediatric); D64.9 Anemia, unspecified; F32.A Depression, unspecified; E78.00 Pure hypercholesterolemia, unspecified; I10 Essential (primary) hypertension; Z79.899 Other long term (current) drug therapy
CPT/HCPCS: 47562; 74300; 76000; 88304; 93005; J7120; J0744; J2405

== ENCOUNTER → 2021-11-29 | Outpatient (CLI) | payer MEDICARE, SELFPAY ==
[2021-11-29 12:31] LABS: Absolute Lymphocyte Count 0.96 X10^3/uL (0.83-4.51); Absolute Neutrophil Count 4.6 X10^3/uL (2.0-7.7); Basophil# 0.02 X10^3/uL; Basophil% 0.3 % (0-1); Eosinophil# 0.14 X10^3/uL; Eosinophils% 2.3 % (0-5); Hematocrit 37.1 % (40-54); Hemoglobin 11.6 g/dL (13.0-16.5); Lymphocyte # 0.96 X10^3/ul (0.83-4.51); Lymphocyte % 15.9 % (19-41); Mean Corp Hgb Conc 31.3 g/dL (32-36); Mean Corpuscular Volume 89.6 fL (80-94); Mean Platelet Vol. 9.7 fl (6.2-12.0); NRBC Flagged by Analyzer 0 % (0-5); Neutrophil # 4.57 X10^3/uL (2.7-7.7); Neutrophil % 75.8 % (47-70); Platelet Count 257 K/mm3 (150-450); RBC Distribution Width CV 14.2 % (11.6-14.6); Red Blood Count 4.14 M/mm3 (4.6-6.2)
[2021-11-29 12:43] LABS: Iron 63 ug/dL (65-175)
== END | disposition home or self-care (01) ==
LOC: MFPLAB 10:42
PROVIDERS: PCP Family Medicine; Visit Provider Family Medicine
DX: R53.83 Other fatigue (principal); D64.9 Anemia, unspecified
CPT/HCPCS: 36415; 83540; 85025

== ENCOUNTER 2022-01-12 10:23 | Day surgery (SDC) | payer MEDICARE, SELFPAY ==
[2022-01-12] VITALS (9 sets, daily range): BP systolic 82–145; BP diastolic 53–88; PULSE 42–62; RESP 14–16; TEMP 36.1–36.4; O2SAT 91–100; BMI 30.7
--- NOTE | 2022-01-12 10:56 | HP.PCM_ITS ---
History and Physical Date of Admission: 01/12/22 EVERETTE POLANCO, is a 71 M who presents to the office today accompanied by his for f/u hospitalization 10/17/21-10/20/21 for gallstone pancreatitis secondary to choledocholithiasis. Dr Almeida did ERCP with stone removal, stricture dilation and stent placement; started him on ursodiol for the remaining stones in his gallbladder; he may need assessment as an outpatient for elective cholecystectomy. Pancreatitis resolved with stone removal and treatment with IV fluids. Pt reports he is still weak but significantly better than before his ERCP. He states his abdominal pain, nausea, vomiting and reflux have resolved. He had abdominal pain and reflux for approximately 2 yrs. Appetite is good, can't eat much at one time so he is doing small frequent meals/snacks. Interestingly he no longer has SOB; he had been treated recently with an inhaler, but that hadn't been effective.? He is now on ursodiol 500 mg BID, tolerating it w/o adverse effects. He notes a bit of constipation but nothing bothersome. PCP checked labs this week, improved hgb to 10.4, bilirubin now normal at 1.0 (m ax was 6.5), AST and ALT normalized, alk phos almost normal at 119, lipase normal at 290 (was was 460) ? Comorbidities include parkinson's, hyperlipidemia, HTN, depression, BPH PSH: oral surgery ROS Const Constitutional: Positive for fatigue, headache(s), weakness and weight change (weight loss); No fever(s) or frequent falls ENT ENT: Positive for headache(s); No difficulty swallowing Cardio Cardiology: No leg pain with exertion Gastro GI: Positive for constipation; No abdominal pain, bloating, change in bowel habits, diarrhea, heartburn, difficulty swallowing, Vomiting blood/hematemesis, Blood in stool, nausea/dyspepsia or vomiting Musc Musculoskeletal: Positive for back pain, muscle weakness and Arthritis; No abnormal gait, joint pain, joint swelling, muscle cramps, numbness, stiffness, tingling, sciatica, leg pain at night or leg pain with exertion Skin Skin: Positive for dry skin; No lesions, itchy eyes or rash Neuro Neurology: Positive for weakness and headache(s); No abnormal gait, dizziness, frequent falls, numbness, tingling, tremor(s), Increased tone in limbs, paralysis or seizures Psych Psychiatric: No anxiety, No depression, No paranoia, No Behavioral Problems, No Compulsive Behavior, No hyperactivity, No inattentiveness, No obsessions/compulsions, Positive for Temper Tantrums and No suicidal ideation Endo Endocrine: Positive for fatigue and weight change (weight loss) Aller/Imm Allergy/Immunologic: No itchy eyes Caden/Lymp Hematologic/Lymphatic: No easy bleeding or easy bruising Exam Const General: cooperative, comfortable and no acute distress Nutritional Appearance: average body habitus Orientation: alert, awake and oriented x3 HENMT Head: normal to inspection Eyes General: appearance normal, both eyes and all related structures Resp Effort & Inspection: normal respiratory effort Quality Reporting Tobacco Screening ([facility] 138) Smoking Status: Never smoker Assessment and Plan Assessment and Plan (1) Choledocholithiasis: ?Status:?Acute (2) Cholelithiasis: ?Status:?Acute ?Plan: 71 yr old male doing well s/p hospitalization for gallstone pancreatitis and ERCP for stone removal/stricture dilation/temporary stent placement. He is taking ursodiol 500 mg BID to prevent sludge buildup, and possibly to treat gallstones (we discussed this isn't always effective). He has multiple stones in the gallbladder; we will refer to general surgery for evaluation of whether he needs cholecystectomy. We will schedule him for stent removal to occur in approx 2 mos, but that can be changed dependent on what gen surg recommends (if cholecystectomy is needed, then perhaps we can coordinate that with stent removal). Pt will f/u 2 wks after stent removal. ? ? ? Orders: Referrals General Surgery ? K80.20 - Calculus of gallbladder without cholecystitis without obstruction ? I have examined the patient and the H&P has been reviewed. There are no clinical changes since date of exam.
[2022-01-12] MEDS: Lactated Ringers 1,000 ML 15 ML IV (11:04)
--- NOTE | 2022-01-12 11:45 | RAD_ITS ---
STUDY: ERCP. REASON FOR EXAM: Male, 71 years old. Dilated common bile duct. FLUOROSCOPY TIME (if supplied): ( 1 minute and 12 seconds ) minutes/seconds. 11 images were submitted. TECHNIQUE: An ERCP was performed by the curb supervisor. Imaging was provided. COMPARISON: None. FINDINGS: The indwelling common bile duct stent has been removed. Contrast was injected. No intraluminal filling defects is seen. RAD/ERCP Biliary Only IMPRESSION: Status post removal of the common bile duct stent. Electronically Signed: Prashanth Kimbrough MD at 8:15 EST ,
--- NOTE | 2022-01-12 12:32 | OP.ERCP_ITS ---
Patient Name: Gilbert Whitlock Procedure Date: 01/12/2022 11:03 AM Date of : 1950 Age: 71 Procedure: ERCP Indications: Biliary stent removal Providers: Taj Almeida DO Medicines: Monitored Anesthesia Care Patient Profile: This is a 71 year old male. Refer to note in patient chart for documentation of history and physical. Patient has symptoms of acute jaundice. Complications: No immediate complications. Procedure: Pre-Anesthesia Assessment: - Prior to the procedure, a History and Physical was performed, and patient medications and allergies were reviewed. The risks and benefits of the procedure and the sedation options and risks were discussed with the patient. All questions were answered and informed consent was obtained. Patient identification and proposed procedure were verified by the physician in the pre-procedure area. Mental Status Examination: alert and oriented. Airway Examination: normal oropharyngeal airway and neck mobility. Respiratory Examination: clear to auscultation. CV Examination: normal. Prophylactic Antibiotics: The patient does not require prophylactic antibiotics. Prior Anticoagulants: The patient has taken no previous anticoagulant or antiplatelet agents. ASA Grade Assessment: I - A normal, healthy patient. After reviewing the risks and benefits, the patient was deemed in satisfactory condition to undergo the procedure. The anesthesia plan was to use general anesthesia. Immediately prior to administration of medications, the patient was re-assessed for adequacy to receive sedatives. The heart rate, respiratory rate, oxygen saturations, blood pressure, adequacy of pulmonary ventilation, and response to care were monitored throughout the procedure. The physical status of the patient was re-assessed after the procedure. After obtaining informed consent, the scope was passed under direct vision. Throughout the procedure, the patient's blood pressure, pulse, and oxygen saturations were monitored continuously. The Duodenoscope was introduced through the mouth, and advanced to the duodenum and used to inject contrast into the bile duct. The ERCP was accomplished without difficulty. The patient tolerated the procedure well. Scope In: 11:53:19 AM Scope Out: 12:15:17 PM Total Procedure Duration Time 0 hours 21 minutes 58 seconds Findings: The locomotive switch operator film was normal. The esophagus was successfully intubated under direct vision. The scope was advanced to a normal major papilla in the descending duodenum without detailed examination of the pharynx, larynx and associated structures, and upper GI tract. The upper GI tract was grossly normal. The bile duct was deeply cannulated with the short-nosed traction sphincterotome. Contrast was injected. I personally interpreted the bile duct images. There was brisk flow of contrast through the ducts. Image quality was excellent. Contrast extended to the entire biliary tree. Opacification of the entire biliary tree except for the cystic duct and gallbladder was successful. The maximum diameter of the ducts was 8 mm. The lower third of the main bile duct contained a single localized stenosis 6 mm in length. The middle third of the main bile duct and upper third of the main bile duct were mildly dilated, with a stone causing an obstruction. The largest diameter was 8 mm. A straight Roadrunner wire was passed into the biliary tree. A 5 mm biliary sphincterotomy was made with a traction (standard) sphincterotome using ERBE electrocautery. There was no post-sphincterotomy bleeding. The biliary tree was swept with a 15 mm balloon starting at the bifurcation. Sludge was swept from the duct. All stones were removed. The upper GI tract was traversed under direct vision without detailed examination. The major papilla was normal. A standard esophagogastroduodenoscopy scope was used for the examination of the upper gastrointestinal tract. The scope was passed under direct vision through the upper GI tract. Two non-bleeding cratered duodenal ulcers with no stigmata of bleeding were found in the duodenal bulb. The largest lesion was 6 mm in largest dimension. One stent was removed from the biliary tree using a snare. The stent was found to be occluded via the water column test. Impression: - Multiple non-bleeding duodenal ulcers with no stigmata of bleeding. 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 The stricture was secondary to previous stone(s) and benign appearing. - The upper third of the main bile duct and middle third of the main bile duct were mildly dilated, with a stone causing an obstruction. - Choledocholithiasis was found. Complete removal was accomplished by biliary sphincterotomy and balloon extraction. - A biliary sphincterotomy was performed. - The biliary tree was swept. - One stent was removed from the biliary tree. Recommendation: - Avoid aspirin and nonsteroidal anti-inflammatory medicines for 2 weeks. - Use Protonix (pantoprazole) 40 mg PO BID for 8 weeks. Procedure Code(s): --- Professional --- 09341, Endoscopic retrograde cholangiopancreatography (ERCP); with removal of foreign body(s) or stent(s) from biliary/pancreatic duct(s) 37532, Endoscopic retrograde cholangiopancreatography (ERCP); with removal of calculi/debris from biliary/pancreatic duct(s) 64194, Endoscopic retrograde cholangiopancreatography (ERCP); with sphincterotomy/papillotomy 42146, 26, Endoscopic catheterization of the biliary ductal system, radiological supervision and interpretation CPT copyright 2017 [employer]. All rights reserved. The codes documented in this report are preliminary and upon creative perfumer review may be revised to meet current compliance requirements. Taj Almeida DO 01/12/2022 12:32:25 PM This report has been signed electronically. Number of Addenda: 0 Note Initiated On: 01/12/2022 11:03 AM
--- NOTE | 2022-01-12 12:34 | OP.CCLET_ITS ---
01/12/2022 Luigi Kirk [address] [place] [address] Re : ERCP procedure for Gilbert Whitlock Dear Dr. Kirk This procedure was performed on Wednesday, January 12, 2022. My impressions and recommendations are as follows: Impressions : - Multiple non-bleeding duodenal ulcers with no stigmata of bleeding. 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 The stricture was secondary to previous stone(s) and benign appearing. - The upper third of the main bile duct and middle third of the main bile duct were mildly dilated, with a stone causing an obstruction. - Choledocholithiasis was found. Complete removal was accomplished by biliary sphincterotomy and balloon extraction. - A biliary sphincterotomy was performed. - The biliary tree was swept. - One stent was removed from the biliary tree. Recommendations : - Avoid aspirin and nonsteroidal anti-inflammatory medicines for 2 weeks. - Use Protonix (pantoprazole) 40 mg PO BID for 8 weeks. My findings are described in the full procedure note, which is enclosed. If I can be of further assistance, please feel free to contact me at . Sincerely, Taj Almeida, 01/12/2022 12:32:25 PM This report has been signed electronically.
== END 2022-01-12 14:36 | disposition home or self-care (01) ==
LOC: EN 10:26 → AC 10:30
PROVIDERS: PCP Family Medicine; Referring Provider Family Medicine; Visit Provider Internal Medicine Gastroenterology
PROC: (CPT 43260; principal; 2022-01-12 11:10)
DX: K80.71 Calculus of gallbladder and bile duct without cholecystitis with obstruction (principal); G20 Parkinson's disease; K26.9 Duodenal ulcer, unspecified as acute or chronic, without hemorrhage or perforation; D64.9 Anemia, unspecified; F32.A Depression, unspecified; E78.00 Pure hypercholesterolemia, unspecified; I10 Essential (primary) hypertension; Z79.899 Other long term (current) drug therapy
CPT/HCPCS: 43275; 43264; 43262; 74328; 76000; 93005; J7120; J2405

== ENCOUNTER → 2022-03-03 | Outpatient (CLI) | payer MEDICARE, SELFPAY ==
--- NOTE | 2022-03-03 12:58 | STRESSREP ---
Stress Test Report Date: 03-03-2022 Procedure: Pharmacologic stress nuclear imaging study Indications: Shortness of breath/dyspnea; fatigue Consent: Per the patient Procedure: The patient underwent pharmacologic (Regadenoson 0.4mg ) evaluation with a peak heart rate of 78 beats per minute (53%predicted maximal heart rate) and a resting blood pressure of 120/80 mmHg and a peak blood pressure of 120/80 mmHg. The baseline ECG demonstrated normal sinus rhythm; incomplete left bundle branch block pattern. The peak pharmacologic ECG demonstrated no obvious ECG changes. There were no cardiac dysrhythmias pretest, during pharmacologic infusion, or recovery. There was no complaint of chest discomfort during pharmacologic infusion or recovery. The examination was discontinued secondary to completion of protocol. Impression: 1. Pharmacologic (Regadenoson) evaluation 2. Peak pharmacologic ECG with an incomplete left bundle branch block pattern with no obvious ECG changes. 3. There were no cardiac dysrhythmias pretest, during pharmacologic infusion, or recovery. 4. Nuclear images pending Myocardial perfusion imaging study: Technique: The patient was injected with 14.4 millicuries of technetium 99m Cardiolite and subsequently rest SPECT Cardiolite nuclear imaging was obtained in the horizontal long, vertical long, and short axis views. The patient underwent pharmacologic (Regadenoson) evaluation with a peak heart rate of 78 beats per minute (53% percent predicted maximal heart rate) and a resting blood pressure of 120/80 mmHg and a peak blood pressure of 120/80 mmHg. The patient was injected with 44.5 millicuries of technetium 99m Cardiolite and subsequently stress SPECT Cardiolite nuclear imaging was obtained in the horizontal long, vertical long, and short axis views. A gated Cardiolite study at peak stress was obtained. Interpretation: Rest and stress SPECT Cardiolite nuclear imaging status post realignment, normalization, and attenuation correction demonstrate relative uniform tracer uptake and myocardial perfusion appearing within normal limits. There is end systolic thickening and brightening. The gated Cardiolite study demonstrates myocardial thickening and inward wall motion. The reported LVEF is 76%. Impression: 1. Rest and stress SPECT Cardiolite nuclear imaging demonstrate relative uniform tracer uptake and myocardial perfusion appearing within normal limits. 2. The gated Cardiolite study reports an LVEF of 76%. This note was generated with [employer] software. It may contain incorrect words, spelling, and punctuation that were not noted in checking the note before signing.
== END | disposition home or self-care (01) ==
LOC: CVS 07:09
PROVIDERS: PCP Family Medicine; Visit Provider Family Medicine
DX: R06.02 Shortness of breath (principal)
CPT/HCPCS: 78452; 93017; A9500; A4216; J2785

== ENCOUNTER → 2022-03-10 | Outpatient (CLI) | payer MEDICARE, SELFPAY ==
--- NOTE | 2022-03-10 10:34 | RAD_ITS ---
INDICATION: SHOULDER SEPARATION EXAMINATION/TECHNIQUE: X-RAY - LEFT XR Shoulder Min 2 Views 4 VIEWS COMPARISON: None. FINDINGS: SOFT TISSUES: No soft tissue swelling or gas. No radiopaque foreign body. BONES/JOINTS: Narrowed glenohumeral joint... Normal alignment. Dislocated AC joint with widening of the coracoclavicular joint consistent with ligamentous disruption. .. No sclerotic or destructive changes observed. RAD/Shoulder min 2 Views IMPRESSION: AC joint dislocation with findings consistent with coracoclavicular ligamentous disruption. Degenerative changes of the shoulder. No acute fracture Electronically Signed: Rivas Brewster MD at 22:57 EST ,
== END | disposition home or self-care (01) ==
LOC: MTRAD 10:33
PROVIDERS: PCP Family Medicine; Referring Provider Family Medicine; Visit Provider Family Medicine
DX: S43.005S Unspecified dislocation of left shoulder joint, sequela (principal)
CPT/HCPCS: 73030

== ENCOUNTER → 2022-03-22 | Outpatient (CLI) | payer MEDICARE, SELFPAY ==
--- NOTE | 2022-03-22 08:40 | ECHOCS_ITS ---
Reason For Study: dyspnea Procedure This was a 2D Doppler, Color Flow transthoracic echocardiogram. The study was technically difficult. Due to left shoulder injury, patient was scanned in supine position, unable to lie on left side. Contrast injection was performed. Left Ventricle Based upon the 2D echocardiographic and contrast enhanced images obtained there appears to be grossly normal left ventricular size, wall motion, and systolic function. The estimated ejection fraction is 65 %. No evidence for diastolic dysfunction. Right Ventricle Based upon the 2D echocardiographic images obtained there appears to be grossly normal right ventricular size and systolic function. Atria Normal left atrium. Normal right atrium. No doppler evidence for ASD. Mitral Valve There is no mitral annular calcification. Normal mitral valve. Trivial mitral valve insufficiency. Tricuspid Valve Normal tricuspid valve. Trivial tricuspid valve insufficiency. Unable to estimate RV systolic pressure/pulmonary artery pressure due to technically difficult study. Aortic Valve The aortic valve is not well visualized. Pulmonic Valve The pulmonic valve is not well visualized. Great Vessels Normal sized aortic root. Pericardium/Pleural No pericardial effusion. Epicardial fat. Medication 20 gauge I.V. with prn adaptor inserted into right arm. Diluted definity 3.0ml given slow IV push to enhance endocardial definition. MMode/2D Measurements & Calculations LVIDd: 5.0 cm IVSd: 0.87 cm Ao root diam: 3.6 cm LVIDs: 3.7 cm LVPWd: 1.0 cm LA dimension: 4.0 cm RVDd: 3.7 cm FS: 26.4 % LAV(MOD-sp4): 51.1 ml LA A4 area: 18.1 cm2 RA A4 area: 18.0 cm2 Time Measurements MV dec time: 0.31 sec Doppler Measurements & Calculations MV E max pollo: 53.5 cm/sec Lat Peak E' Pollo: 13.7 cm/sec MV dec slope: 176.6 cm/sec2 MV A max pollo: 84.8 cm/sec E/E' lat: 3.9 MV E/A: 0.63 Ao V2 max: 130.7 cm/sec LV V1 max: 111.6 cm/sec PA V2 max: 83.3 cm/sec Ao max P.8 mmHg LV V1 max P.0 mmHg Ao V2 mean: 97.2 cm/sec LV V1 mean P.4 mmHg Ao mean P.0 mmHg LV V1 mean: 89.4 cm/sec Ao V2 VTI: 28.8 cm LV V1 VTI: 25.2 cm AV (velocity ratio): 0.88 ECHO/Echo Complete W/ Contrast Interpretation Summary The study was technically difficult. Contrast injection was performed. Based upon the 2D echocardiographic and contrast enhanced images obtained there appears to be grossly normal left ventricular size, wall motion, and systolic function. The estimated ejection fraction is 65 %. Trivial mitral valve insufficiency. Trivial tricuspid valve insufficiency. Epicardial fat. Unable to estimate RV systolic pressure/pulmonary artery pressure due to techni martin difficult study. No evidence for diastolic dysfunction. Ordering Physician: Luigi Kirk Referring Physician: Bala Kirk Performed By: Tarah Muniz, VIVIAN, RVT
== END | disposition home or self-care (01) ==
LOC: CVS 08:36
PROVIDERS: PCP Family Medicine; Visit Provider Family Medicine
DX: R06.00 Dyspnea, unspecified (principal)
CPT/HCPCS: 93306; Q9957; A4216; C8929

== ENCOUNTER → 2022-04-05 | Outpatient (CLI) | payer MEDICARE, SELFPAY ==
--- NOTE | 2022-04-05 14:53 | CT_ITS ---
STUDY: CT BRAIN WITH AND WITHOUT CONTRAST REASON FOR EXAM: Male, 72 years old. [facility] RADIATION DOSAGE (If Supplied By Facility): CTDIvol = ( 47.06 ) mGy, DLP = ( 1851.24 ) mGycm TECHNIQUE: Transaxial CT imaging of the brain was performed pre and post contrast administration. The examination was performed with intravenous administration of IV 50mL Isovue-370. Individualized dose optimization techniques were used for this CT. COMPARISON: None. FINDINGS: Normal soft tissue structures. Normal calvarium. Mild bilateral cavernous carotid calcification Mild atrophy and periventricular white matter ischemic changes. Normal basal ganglia and thalami. Normal brainstem. Normal cerebellum. There is no intracranial hemorrhage. There are no findings of an acute ischemic infarction. Small mucous retention cyst in right maxillary sinus. Small bony osteoma within the right ethmoid air cells CT/Brain/Head W/WO Contrast IMPRESSION: Mild atrophy and periventricular white matter ischemic changes.. No evidence for acute bleed. MRI would be helpful for further assessment if clinically warranted Electronically Signed: Rivas Brewster MD at 16:23 EST ,
[2022-04-06 07:40] LABS: CREATININE FINGERSTICK 0.92 mg/dL (0.70-1.30); EGFR FINGERSTICK > 60 mL/min (>60)
== END | disposition home or self-care (01) ==
PROVIDERS: PCP Family Medicine
DX: G20 Parkinson's disease (principal)
CPT/HCPCS: 70470; Q9967

== ENCOUNTER → 2022-07-20 | Outpatient (CLI) | payer MEDICARE, SELFPAY ==
[2022-07-20 14:48] LABS: Hematocrit 38.6 % (40-54); Hemoglobin 12.1 g/dL (13.0-16.5); Mean Corp Hgb Conc 31.3 g/dL (32-36); Mean Corpuscular Hgb 28.9 pg (27.0-32.0); Mean Corpuscular Volume 92.1 fL (80-94); Mean Platelet Vol. 9.9 fl (6.2-12.0); Platelet Count 190 K/mm3 (150-450); RBC Distribution Width CV 13.7 % (11.6-14.6); RBC Distribution Width SD 46.4 fl (35.1-43.9); RET-HE 32.3 pg (30-35); Red Blood Count 4.19 M/mm3 (4.6-6.2); Reticulocyte Count 1.75 % (0.5-1.5)
[2022-07-20 15:19] LABS: Vitamin B12 824 pg/mL (211-911); Vitamin D,25 Hydroxy 73.7 ng/mL
[2022-07-20 15:37] LABS: Anion Gap 5 (5-15); BUN 31 mg/dL (7-18); BUN/Creat Ratio 23.8 RATIO (10-20); Calcium,Total 8.9 mg/dL (8.5-10.1); Chloride 111 mmol/L (98-107); EST Glomerular Filtration Rate 57 mL/min (>60); Est Glom Filt Rate - Afr Amer 69 mL/min (>60); Ferritin 62 ng/mL (26-388); Glucose 121 mg/dL (74-106); Iron 62 ug/dL (65-175); PSA,Total - Annual Screen 0.82 ng/mL (0.00-4.00); Potassium 4.7 mmol/L (3.5-5.1); Sodium Level 143 mmol/L (136-145); Thyroid Stim Hormone (TSH) 2.28 uIU/mL (0.358-3.74)
== END | disposition home or self-care (01) ==
LOC: MFPLAB 11:35
PROVIDERS: PCP Family Medicine; Visit Provider Family Medicine
DX: N18.30 Chronic kidney disease, stage 3 unspecified (principal); E53.8 Deficiency of other specified B group vitamins; D64.9 Anemia, unspecified; Z12.5 Encounter for screening for malignant neoplasm of prostate; R53.83 Other fatigue
CPT/HCPCS: 36415; 80048; 82306; 82607; 82728; 82746; 83540; 84153; 84443; 85027; 85045; G0103

== ENCOUNTER → 2022-10-24 | Outpatient (CLI) | payer MEDICARE, SELFPAY | END | disposition home or self-care (01) | PROVIDERS: PCP Family Medicine; Referring Provider Family Medicine; Visit Provider Family Medicine | DX: E34.9 Endocrine disorder, unspecified (principal) | CPT/HCPCS: 36415; 84403 ==

== ENCOUNTER → 2023-12-05 | Outpatient (CLI) | payer MEDICARE, SELFPAY ==
[2023-12-05 15:31] LABS: Hematocrit 40.9 % (40-54); Hemoglobin 12.7 g/dL (13.0-16.5); Mean Corp Hgb Conc 31.1 g/dL (32-36); Mean Corpuscular Hgb 28.7 pg (27.0-32.0); Mean Corpuscular Volume 92.3 fL (80-94); Mean Platelet Vol. 9.9 fl (6.2-12.0); Platelet Count 185 K/mm3 (150-450); RBC Distribution Width CV 13.3 % (11.6-14.6); RBC Distribution Width SD 45.6 fl (35.1-43.9); Red Blood Count 4.43 M/mm3 (4.6-6.2); White Blood Count 6.1 K/mm3 (4.4-11.0)
[2023-12-05 15:57] LABS: ALB/GLOB Ratio 1.1 RATIO (0.9-2.4); AST(SGOT) 25 U/L (15-37); Alanine Aminotransfer ALT/SGPT 18 U/L (16-61); Albumin, Serum 3.8 g/dL (3.2-5.0); Alkaline Phosphatase 76 U/L (45-117); Anion Gap 8 (5-15); BUN 28 mg/dL (7-18); BUN/Creat Ratio 19.7 RATIO (10-20); Calcium,Total 9.4 mg/dL (8.5-10.1); Chloride 108 mmol/L (98-107); Cholesterol 96 mg/dL (200); Creatinine, Serum 1.42 mg/dL (0.70-1.30); EST Glomerular Filtration Rate 52 mL/min (>60); Est Glom Filt Rate - Afr Amer 62 mL/min (>60); Ferritin 101 ng/mL (26-388); Globulin 3.5 g/dL (2.2-4.2); Glucose 95 mg/dL (74-106); High Density Lipoprotein 47 mg/dL; Iron 55 ug/dL (65-175); Potassium 4.6 mmol/L (3.5-5.1); Protein, Total 7.3 g/dL (6.4-8.2); Sodium Level 139 mmol/L (136-145); Triglycerides 92 mg/dL; Very Low Density Lipoprotein 18 mg/dL (5-40); Vitamin B12 315 pg/mL (211-911)
== END | disposition home or self-care (01) ==
LOC: MTLAB 11:19
PROVIDERS: PCP Family Medicine; Referring Provider Family Medicine; Visit Provider Family Medicine
DX: D64.9 Anemia, unspecified (principal); G20.A1 Parkinson's disease without dyskinesia, without mention of fluctuations; I10 Essential (primary) hypertension
CPT/HCPCS: 36415; 80053; 80061; 82607; 82728; 83540; 85027

== ENCOUNTER → 2024-07-02 | Outpatient (CLI) | payer MEDICARE, SELFPAY ==
[2024-07-02 15:32] LABS: Absolute Lymphocyte Count 1.15 X10^3/uL (0.83-4.51); Basophil# 0.03 X10^3/uL; Basophil% 0.5 % (0-1); Eosinophil# 0.07 X10^3/uL; Eosinophils% 1.3 % (0-5); Hematocrit 40.9 % (40-54); Lymphocyte # 1.15 X10^3/ul (0.83-4.51); Lymphocyte % 20.6 % (19-41); Mean Corp Hgb Conc 31.8 g/dL (32-36); Mean Corpuscular Volume 91.3 fL (80-94); Mean Platelet Vol. 10.1 fl (6.2-12.0); Monocyte# 0.32 X10^3/uL; Monocyte% 5.7 % (0-10); NRBC Flagged by Analyzer 0 % (0-5); Neutrophil # 3.97 X10^3/uL (2.7-7.7); Neutrophil % 71.2 % (47-70); Platelet Count 154 K/mm3 (150-450); RBC Distribution Width CV 14.1 % (11.6-14.6); Red Blood Count 4.48 M/mm3 (4.6-6.2); White Blood Count 5.6 K/mm3 (4.4-11.0)
[2024-07-02 16:16] LABS: Anion Gap 11 (5-15); BUN 25 mg/dL (4-19); BUN/Creat Ratio 18.5 RATIO (10-20); Calcium,Total 9.5 mg/dL (7.6-11.0); Carbon Dioxide 24.7 mmol/L (21.0-32.0); Chloride 105 mmol/L (98-108); Creatinine, Serum 1.37 mg/dL (0.70-1.20); EST Glomerular Filtration Rate 53 (>60); Ferritin 142 ng/mL (37-417); Glucose 115 mg/dL (70-99); Iron 90 ug/dL (65-175); PSA,Total - Annual Screen 1.07 ng/mL (0.02-4.00); Potassium 5.1 mmol/L (3.3-5.1); Sodium Level 140 mmol/L (133-145); Vitamin B12 534 pg/mL (180-914)
== END | disposition home or self-care (01) ==
LOC: MFPLAB 11:39
PROVIDERS: PCP Family Medicine; Referring Provider Family Medicine; Visit Provider Family Medicine
DX: Z12.5 Encounter for screening for malignant neoplasm of prostate (principal); D64.9 Anemia, unspecified; I10 Essential (primary) hypertension
CPT/HCPCS: 36415; 80048; 82607; 82728; 83540; 84153; 85025; G0103

== ENCOUNTER → 2024-07-05 | Outpatient (CLI) | payer MEDICARE, SELFPAY ==
--- NOTE | 2024-07-05 12:07 | EKG12_ITS ---
Test Reason : SOB Blood Pressure : */* mmHG Vent. Rate : 87 BPM Atrial Rate : 87 BPM P-R Int : 174 ms QRS Dur : 112 ms QT Int : 372 ms P-R-T Axes : 46 -47 74 degrees QTcB Int : 447 ms Normal sinus rhythm Left anterior fascicular block Abnormal ECG When compared with ECG of 12-Jan-2022 10:46, Premature atrial complexes are no longer Present Confirmed by Ky Bearden ([id number]), brands editor ALIA BECKWITH ([id number]) on 07/09/2024 11:41:41 AM Referred By: Catherine Nunez Confirmed By: Ky Bearden
== END | disposition home or self-care (01) ==
LOC: PSN 11:40
PROVIDERS: PCP Family Medicine
DX: G20.C Parkinsonism, unspecified (principal); R06.02 Shortness of breath; R53.1 Weakness
CPT/HCPCS: 93005; 94060; 94726; 94729

== ENCOUNTER → 2024-07-26 | Outpatient (CLI) | payer MEDICARE, SELFPAY ==
--- NOTE | 2024-07-26 13:35 | ST.MBS ---
Modified Barium Swallow Patient Information Study Date: 07/26/24 Study Time: 12:50 Direct Billable Minutes: 118 Total Minutes procedure & reportin Diagnosis: Parkinson's disease G20 Referring Physician: Catherine Nunez Reason for Referral: Assess swallow function, assess risk for aspiration, and determine recommendations for least restrictive diet textures and compensatory strategies to improve safety of swallow. Medical History: Patient participated in BSE w/ OP ST on 07/01/2024 revealing oropharyngeal dysphagia and recommending regular textures / thin liquids w/ the following strategies to promote safe swallowing: Upright Position at Least 30 Minutes After Meals, Small Sips & Bites when Eating and Alternate Liquids & Solids. He was recommended for this MBSS from OP ST. Patient reports years of swallowing trouble, primarily w/ dry foods or liquids via straw. He reports coughing w/ foods and drinks daily, as well as sensation of dry foods feeling caught in his throat. PMH: Parkinson's disease (symptoms ~5 years), GERD, hearing aids, unintentional weight loss, renal failure, dehydration, SOB, generalized weakness - See EMR for full PMH. Current Diet Ordered: Regular textures / Thin liquids Dentition: Natural Teeth and Missing Teeth (Has partial dentures, not present but he uses them to chew meats. They are ill-fitting due to weight loss.) Mental Status: WNL Respiratory Status: Oxygenating on Room Air Penetration-Aspiration Scale Penetration-Aspiration Scale: OBJECTIVE ASSESSMENT OF SWALLOW FUNCTION (QUANTITATIVE ? PER TRIAL): PENETRATION / ASPIRATION SCALE (LOPEZ): 1 = does not enter airway 2 = enters airway/above vocal folds/ejected 3 = enters airway/above vocal folds/not ejected 4 = enters airway/contacts vocal folds/ejected 5 = enters airway/contacts vocal folds/not ejected 6 = enters airway/below vocal folds/ejected 7 = enters airway/below vocal folds/not ejected despite effort 8 = enters airway/below vocal folds/no effort VIDEOFLOROSCOPIC SCALE SCORE (LOPEZ): Grade I = aspiration of material that has penetrated into the laryngeal vestibule, intact cough reflex Grade II = aspiration < 10 % of the bolus, intact cough reflex Grade III = aspiration of < 10 % of the bolus, reduced cough reflex or aspiration of > 10 % of the bolus, intact cough reflex Grade IV = aspiration of > 10 % of the bolus, reduced cough reflex Penetration-Aspiration Scale Score Thin Liquid via teaspoon: Result: 1= does not enter airway Thin Liquid via teaspoon Trial 2: Result: 8= enters airway/below vocal folds/no effort Thin Liquid via large single sip: cup: Result: 5= enters airways/contacts vocal folds/not ejected Thin Liquid via small single sip: cup: Result: 1= does not enter airway [place] Thick Liquid via large single sip: cup: Result: 1= does not enter airway Pudding via teaspoon: Result: 1= does not enter airway Comment: Esophageal screen - Retention in the UES w/ retrograde flow to the pyriform sinuses. Retention in the lower esophagus w/ retrograde flow. 1/2 Cookie: Result: 1= does not enter airway Thin Liquid via small single sip: cup Trial 2: Result: 8= enters airway/below vocal folds/no effort Thin Liquid via single sip: straw: Result: 5= enters airways/contacts vocal folds/not ejected Thin Liquid via small single sip: cup Chin tuck: Result: 2= enter airway/above vocal folds/ejected Thin Liquid via small single sip: cup Chin tuck Trial 2: Result: 1= does not enter airway Thin Liquid via small single sip: cup Effortful swallow: Result: 1= does not enter airway Thin Liquid via small single sip: cup Effortful swallow Trial 2: Result: 5= enters airways/contacts vocal folds/not ejected [place] Thick Liquid via small single sip: cup: Result: 2= enter airway/above vocal folds/ejected Oral Phase Labial Seal: No Labial Escape Tongue Control During Bolus Hold: Posterior escape of less than half of bolus Bolus Preparation/Mastication: Disorganized chewing/mashing with solid pieces of bolus unchewed (pieces of cookie appeared un-chewed) Bolus Transport/Lingual Motion: Repetitive/disorganized tongue motion Oral Residue: Residue collection on oral structures Pharyngeal Phase Initiation of Pharyngeal Swallow: Bolus head in valleculae Soft Palate Elevation: Trace column of contrast/air between soft palate and pharyngeal wall Laryngeal Elevation: Partial superior movement thyroid cart/partial apprx aryt-epig petiole Anterior Hyoid Excursion: Partial anterior movement Epiglottic Movement: Complete inversion Laryngeal Vestibule Closure at Height of Swallow: Incomplete; narrow column of air/contrast in laryngeal vestibule Pharyngeal Stripping Wave: Present - diminished Pharyngoesophageal Segment Opening: Minimal distension and minimal duration; marked obstruction of flow (cookie) Tongue Base Retraction: Wide column of contrast between tongue base & post. pharyngeal wall Pharyngeal Residue: Majority of contrast within or on pharyngeal structures (cookie) Esophageal Phase Esophageal Clearance: Esophageal retention w/ retrograde flow through pharyngoesophageal seg Diagnosis/Impression Diagnosis: Moderate oral dysphagia R13.11;Moderate pharyngoesophageal dysphagia R13.14 Impression: The oral phase is primarily marked by... -Decreased bolus control w/ posterior escape of 1 trial of thin liquids via cup spilling to the oropharynx prior to swallow onset. -Lingual pumping and slowed tongue motion for A-P transport. -Decreased mastication w/ pieces of cookie appearing un-chewed. The pharyngeal phase is primarily marked by... -Decreased pharyngeal motility due to decreased TB retraction, pharyngeal stripping wave, and poor UES opening/duration of opening given presence of CP bar. See below for further description of pharyngeal clearance of various textures through CP bar. -Decreased airway closure during the swallow due to decreased anterior hyoid excursion and laryngeal elevation. -SILENT aspiration of thin liquids via tsp and cup. Deep laryngeal penetration w/ thin liquids via cup and straw. Chin tuck was most effective in reducing risk for aspiration when consuming thin liquids. The esophageal phase is primarily marked by... 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 Thin liquids, mildly thick liquids, and pudding mostly cleared (>50%) through the UES; however, cookie had minimal clearance through the UES (<10% of the bite) prior to liquid wash. Liquid wash was effective in clearing a majority of the cookie trial through the UES. [employer] reviewed w/ radiologist, Dr. Kimbrough, who recommended surgical ENT as the patient may require myotomy. -Mild retention of barium pudding in the lower esophagus w/ retrograde flow. Recommendations Diet: Soft and Bite Sized Textures (IDDSI Level 6) and Thin Liquids Compensatory Strategies: Small Sips (Chin tuck w/ all sips), No Straws, Slow Rate, Alternate bites/solids and sips/liquids (Take a sip after EACH bite), Sitting upright and Remain sitting upright for 30 minutes after PO intake Recommend Repeat Modified Barium Swallow: Yes (Consider repeat MBSS 4-8 weeks after implementation of oropharyngeal exercise program to determine if chin tuck is still necessary.) Need for Skilled Speech Therapy Services: Yes Comment: Continued OP dysphagia therapy... -Train the patient in use of strategies to decrease risk for aspiration. -Training in testing and food preparation of recommended IDDSI Level 6 diet textures. -Ongoing assessment of diet tolerance of recommended textures. If poor tolerance w/ liquids and/or worsening respiratory status, could consider diet downgrade to mildly thick liquids; however, thicker consistencies resulted in worsening clearance through the UES. -Train the patient in oropharyngeal exercise program (lingual resistance, Tori, CTAR). Recommended Referrals: ENT Consult (Following review w/ radiologist, Dr. Kimbrough, will recommend the patient for a surgical ENT consult due to cricopharyngeal bar greatly impacting clearance of food.) and Dental Evaluation (Would consider having dentures re-fitted to improve mastication abilities) Education Completed: 1. Described result of evaluation. and 7. Pt requires further education on strategies & risks. Status Active ST Patient: Active Contact Information [facility] Speech Therapy:: Maia Leigh M.A. CCC-[employer]? Speech-Language Pathologist?? [facility] [address] [place] [address]? [email or web address]?? [phone]
== END | disposition home or self-care (01) ==
LOC: RAD 12:43
PROVIDERS: PCP Family Medicine
DX: G20.C Parkinsonism, unspecified (principal)
CPT/HCPCS: 74230; 92611

== ENCOUNTER 2024-09-24 11:00 | Outpatient (RCR) | payer MEDICARE, SELFPAY ==
--- NOTE | 2024-07-01 12:01 | HP.SP.EVAL ---
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 RX HERE Medical Diagnosis: Parkinson's Disease Date of Onset of Diagnosis: 2022 Previous speech therapy: No Other Relevant Medical History/Diagnoses/Surgery: Patient has a history of Parkinson's disease. Symptoms may have been going on for 5 years ago. About 2 years ago or so he sought attention for management of this problem. He is being treated with Sinemet 25 100's 1.5 tablets 3 times daily. GERD (gastroesophageal reflux disease), hearing aids. Medications related to this diagnosis: carbidopa- levodopa long lasting 2x a day, short acting 3 x a day. Smoking Status: Never smoker Diagnosis Diagnosis: Dysphagia and Dysphonia Pain Is pain an issue with your current prescribed condition?: Yes Personal Preferred language: Ken[place] Patient Allergies Allergies Allergies: Allergies Penicillins Allergy (Verified 06/14/24 10:01) Hives Subjective Dysphagia Symptoms Reported Symptoms/Problems with: Drooling, Coughing, Difficulty Swallowing Solids and Difficulty Swallowing Pills Current Diet Solids Current Diet: Regular Current Diet Liquids Current Liquids: Thin Objective Dysphagia Administered by Administered by: Self Thin Liquids Administred via: Cup Oral Transit: WNL Bolus clearance: fully cleared Gagging: No Cough: throat clear Pharyngeal phase: suspect pharyngeal deficits Patient Report: Patient reported no complaints. Comments: His stated he intermittently clears his throat at home. During the evaluation, he cleared his throat several times during thin. Regular Oral Preparation: WNL Oral Transit: WNL Bolus clearance: fully cleared Gagging: No Cough: none observed/unable to assess Pharyngeal phase: suspect pharyngeal deficits Patient Report: Patient reported that dry foods get stuck. Impact Impact on Safety & Functioning: Risk for Aspiration and Risk for Inadequate Nutrition/Hydration Recommendations Modified Barium Swallow/Cookie Swallow Recommended: Yes Diet Texture Recommendations Solids: Regular (Level 7) Other liquids: Thin Safety Saftey Precautions/Swallowing Recommendations (Check all that Apply): Upright Position at Least 30 Minutes After Meals, Small Sips & Bites when Eating and Alternate Liquids & Solids Results Swallowing Within Normal Limits: No Swallowing Diagnosis: Oropharyngeal Phase Dysphagia (R13.12) Objective Oral Motor Labial Impairment: WNL Closure: WNL Pucker: WNL Retraction: WNL Involuntary Movement noted: No Lingual Impairment: WNL Protrusion: WNL Retraction: WNL Lateralization: WNL Involuntary Movement: No Jaw Impairment: WNL Respiratory Status Respiratory Status: Room Air Reference: Neuro-QoL instrument Radiation Oncology Patient Plan Plan Plan: Speech therapy is warranted for dysphagia. MBSS is scheduled for end of June 2024. Further assessment is necessary for voice as his has stated he is hard to hear with people often asking him to repeat. Recommendations Treatment Warranted: Yes Treatment Warranted: Dysphagia and Voice Frequency Frequency: 1x/Week Duration: 2 Months Goals that are Established Determination:: Goals will be added/modified as deemed necessary and appropriate. Therapy will be discontinued when results of re-evaluation indicate therapy is no longer needed or lack of progress has been documented. Goal #1-5 Goal #1: -Patient will tolerate the least restrictive means of nutrition to facilitate adequate hydration/nutrition with optimum safety and efficiency of swallowing function during P.O. intake without overt signs and symptoms of aspiration Goal #2: The Patient will demonstrate and utilize recommended oropharyngeal strengthening exercises to facilitate improved oropharyngeal strength and coordination with minimal cueing and prompting provide by the clinician, across 3 to 3 sessions. Goal #3: Pt will participate in Modified Barium Swallow (MBS) study to objectively assess Pt's oropharyngeal swallow function to determine the least restrictive means of nutrition and progress from participating in pharyngeal strengthening exercises Goal #4: Patient will participate in a voice assessment. Education Patient has Indicated that the Following Identified Educational Needs: Cognitively Impaired Patient Instruction Patient Education: Diagnosis, Treatment Plan and Diet Level Person Taught: Patient and Significant Other Response to teaching: Verbalize Understanding
--- NOTE | 2024-10-08 15:18 | HP.SP.DC_ITS ---
ST Discharge Summary Discharged: Discharge: Gilbert Whitlock is discharged from [facility] as of September 24, 2024. He was evaluated on 06/25/24 for dysphagia. He attended a total of 6 visits during the course of speech therapy which was weekly. MBSS was recommended and completed on Moderate oral dysphagia and Moderate pharyngoesophageal dysphagia. The focus of therapy was on education for compensatory strategies and diet recommendations for dysphagia and home exercise program. At the completion of therapy patient reported 100% carry over for chin tuck and small sips. He reported intermittent completion of exercises and encouraged by therapist to continue to complete daily due to progressive nature of Parkinson?s Disease. Education provided for Parkinson?s Disease and effects on swallowing, voice and speech. He declined a voice evaluation at this time. Please see daily notes and reports for complete details. Thank you for allowing me to participate in the care of this patient.
== END 2024-09-24 19:00 | disposition home or self-care (01) ==
LOC: SP 11:00
PROVIDERS: PCP Family Medicine
DX: G20.A1 Parkinson's disease without dyskinesia, without mention of fluctuations (principal); R13.10 Dysphagia, unspecified; R49.0 Dysphonia
CPT/HCPCS: 92507; 92526

== ENCOUNTER → 2025-01-08 | Outpatient (CLI) | payer MEDICARE, SELFPAY ==
[2025-01-08 16:55] LABS: Anion Gap 10 (5-15); BUN 24 mg/dL (4-19); BUN/Creat Ratio 18.0 RATIO (10-20); Calcium,Total 9.5 mg/dL (7.6-11.0); Carbon Dioxide 25.1 mmol/L (21.0-32.0); Chloride 106 mmol/L (98-108); Glucose 106 mg/dL (70-99); Potassium 4.7 mmol/L (3.3-5.1); Vitamin D,25 Hydroxy 43.6 ng/mL (30-100)
[2025-01-08 17:49] LABS: Hematocrit 39.6 % (40-54); Hemoglobin 13.0 g/dL (13.0-16.5); Immature Granulocytes Count 0.040 X10^3/uL (0.0-0.0); Mean Corp Hgb Conc 32.8 g/dL (32-36); Mean Corpuscular Volume 88.6 fL (80-94); Mean Platelet Vol. 10.1 fl (6.2-12.0); NRBC Flagged by Analyzer 0 % (0-5); Platelet Count 134 K/mm3 (150-450); RBC Distribution Width CV 13.5 % (11.6-14.6); RBC Distribution Width SD 43.8 fl (35.1-43.9); Red Blood Count 4.47 M/mm3 (4.6-6.2); White Blood Count 5.7 K/mm3 (4.4-11.0)
== END | disposition home or self-care (01) ==
LOC: MTLAB 11:32
PROVIDERS: PCP Family Medicine; Referring Provider Family Medicine; Visit Provider Family Medicine
DX: N18.30 Chronic kidney disease, stage 3 unspecified (principal)
CPT/HCPCS: 36415; 80048; 82306; 85025